=== PATIENT | female | born 1945 | race Caucasian/White ===

== ENCOUNTER 2020-07-28 20:29 | Observation (INO) | payer MEDICARE, OTHER ==
[2020-07-28 21:25] LABS: Absolute Neutrophil Ct (ANC) 6.33 (1.4-6.9); BASOPHIL % 0.1 % (0.0-0.4); Basophil (Absolute #) 0.01 (0-0.4); Eosinophil % 1.4 % (0.00-5.0); Eosinophil (Absolute #) 0.13 (0-0.5); Hematocrit 39.4 % (35-47); Hemoglobin 12.6 gm/dl (12.0-16.0); Lymphocyte (Absolute #) 1.75 (1.0-4.6); Lymphocytes % 19.3 % (24.0-44.0); Mean Cell Volume 93.4 fl (78-100); Mean Corpuscular Hemoglobin 29.9 pg (26-32); Monocyte (Absolute #) 0.86 (0.0-1.3); Monocytes % 9.5 % (0.0-12.0); Neutrophil % 69.7 % (36.0-66.0); Platelet Count 214 K/mm3 (150-450); Red Blood Count 4.22 M/mm3 (4.1-5.4); White Blood Count 9.1 K/mm3 (4.0-10.5)
[2020-07-28 21:31] LABS: Appearance CLOUDY (CLEAR); Bacteria PACKED /HPF (NEGATIVE); Bilirubin NEGATIVE (NEGATIVE); Blood SMALL Ery/ul (0-5); Epithelial Cells RARE /HPF (FEW); Glucose NEGATIVE (NEGATIVE); Ketones TRACE (NEGATIVE); Leukocyte Esterase LARGE (NEGATIVE); Mucus SLIGHT /HPF (NEGATIVE); Nitrite NEGATIVE (NEGATIVE); Non-Squamous Epithelial Cells RARE /HPF (FEW); Protein,Urine Dip 30 (Negative); RBC 0-2 /HPF (0-2); Specific Gravity 1.023 (1.005-1.025); Urobilinogen 2 mg/dL (0-1); WBC >100 /HPF (0-5)
[2020-07-28 21:38] LABS: ALBUMIN 4.5 g/dL (3.5-5.0); ANION GAP 10.5 MEQ/L (5-15); BILIRUBIN,TOTAL 0.4 mg/dL (0.2-1.3); Calcium 10.3 mg/dL (8.4-10.2); Creatinine 1 1.48 mg/dL (0.52-1.04); EST GLOMERULAR FILTRATION RATE 36.4 ML/MIN; Potassium 4.3 mmol/L (3.5-5.1); Total Protein 7.7 g/dL (6.3-8.2)
--- NOTE | 2020-07-28 22:23 | ERPHSYRPT ---
- History of Present Illness Historian: patient Exam Limitations: no limitations Patient Subjective Stated Complaint: "I think I have a bowel blockage." Triage Nursing Assessment: Patient presented with reported concern for a bowel blockage. Pt reported last bowel movement being 11 days ago with feeling of fullness in her rectum. Denied pain or discomfort. Denied nausea or vomiting. Denied hisotory of constipation or bowel blockage. Denied excessive belching. Pupils 3mm brisk direct and consensual reaction to light. Oral mucosa pink and moist without ulcerations or lesions. Neck supple with trachea midline. No noted JVD or lymphadenopathy. Symmetrical chest expansion. Heart tones S1 S2 with regular rate and rhythm without extra sounds. Lungs clear to auscultation with adequate airflow. Abdomen obese non-distended without hernias. Bowel sounds hypoactive in all quadrants. No palpable hepatosplenomegaly or palpable masses. Peripheral pulses +2 bilateral. No noted dependent edema. Gait steady without assistive devices. Physician History: 75 yo wf w constipation x 11 days. Pt denies abdominal pain/melena/hematochezia/fever/N/V/dysuria but has had some frequency. She has a h/o constipation and has tried MOM/fleets enemas. Timing/Duration: other (14 days) Quality: other (Mild rectal pain) Abdominal Pain Onset Location: other (Mild rectal pain) Severity of Pain-Max: mild Severity of Pain-Current: mild Modifying Factors: Improves With: defecating. Worsens With: analgesics, ant acids, breathing, coughing, eating, exercise, lying down, movement, palpation, rest, urinating, vomiting, position, walking Associated Symptoms: denies symptoms Previous symptoms: same symptoms as today Allergies/Adverse Reactions: No Known Drug Allergies Allergy (Unverified 07/28/20 20:52) Home Medications: Fluoxetine HCl 1 tab PO DAILY 07/28/20 [History] Levothyroxine Sodium 1 tab PO DAILY 07/28/20 [History] Losartan Potassium 1 tab PO DAILY 07/28/20 [History] Lovastatin 1 tab PO DAILY 07/28/20 [History] Metformin HCl 500 mg [Glucophage 500 MG] 1 tab PO BID 07/28/20 [History] Trazodone HCl 50 mg [Desyrel 50 mg] 1 tab PO HS 07/28/20 [History] Hx Tetanus, Diphtheria Vaccination/Date Given: No Hx Influenza Vaccination/Date Given: Yes Hx Pneumococcal Vaccination/Date Given: No Travel Risk - International Travel Have you traveled outside of the country in past 3 weeks: No - Coronavirus Screening Are you exhibiting any of the following symptoms?: No Close contact with a COVID-19 positive Pt in past 14-21 Days: No - Review of Systems Constitutional: No Symptoms Eyes: No Symptoms Ears, Nose, & Throat: No Symptoms Respiratory: No Symptoms Cardiac: No Symptoms Abdominal/Gastrointestinal: No Symptoms, Constipation Genitourinary Symptoms: No Symptoms, Frequency Musculoskeletal: No Symptoms Skin: No Symptoms Neurological: No Symptoms Psychological: No Symptoms Endocrine: No Symptoms Hematologic/Lymphatic: No Symptoms Immunological/Allergic: No Symptoms - Past Medical History Pertinent Past Medical History: Yes Neurological History: No Pertinent History ENT History: No Pertinent History Cardiac History: High Cholesterol, Myocardial Infarction ([place]) Respiratory History: No Pertinent History Endocrine Medical History: Diabetes Type II, Hypothyroidism Musculoskeletal History: Arthritis GI Medical History: No Pertinent History History: No Pertinent History Psycho-Social History: Depression Female Reproductive Disorders: No Pertinent History - Past Surgical History Past Surgical History: Yes Cardiac: CABG Gastrointestinal: No Pertinent History Musculoskeletal: Joint Replacement Female Surgical History: Hysterectomy Other Surgical History: Right shoulder replacement and right knee replacement - Social History Smoking Status: Never smoker Exposure to second hand smoke: No Drug Use: none Patient Lives Alone: No Significant Family History: no pertinent family hx - Female History Hx Now: No - Nursing Vital Signs Nursing Vital Signs: Initial Vital Signs Temperature 98.6 F 07/28/20 20:30 Pulse Rate 86 07/28/20 20:30 Respiratory Rate 16 07/28/20 20:30 Blood Pressure 130/69 07/28/20 20:30 O2 Sat by Pulse Oximetry 99 07/28/20 20:30 Pain Scale Pain Intensity 4 - Physical Exam General Appearance: no apparent distress Eye Exam: PERRL/EOMI, eyes nml inspection Ears, Nose, Throat Exam: normal ENT inspection, TMs normal, pharynx normal, moist mucous membranes Neck Exam: normal inspection, non-tender, supple, full range of motion, No meningismus, No mass, No Brudzinski, No Kernig's Respiratory Exam: normal breath sounds, lungs clear, airway intact, No respiratory distress Cardiovascular Exam: regular rate/rhythm, normal heart sounds, normal peripheral pulses, No murmur Gastrointestinal/Abdomen Exam: soft (decreased BS/NTTP) Back Exam: normal inspection, normal range of motion, No CVA tenderness Extremity Exam: normal inspection, normal range of motion Neurologic Exam: alert, oriented x 3, cooperative, magneto repairer II-XII nml as tested, normal mood/affect, sensation nml, No motor deficits, No sensory deficit Skin Exam: normal color, warm, dry Lymphatic Exam: No adenopathy SpO2 Interpretation: normal SpO2: 96 O2 Delivery: Room Air - Course Nursing assessment & vital signs reviewed: Yes - CT Exams Abdomen/Pelvis CT Interpretation: Discussed w/radiologist (Distal rectal thickening w wall stranding) Ordered Tests: Active Orders 24 hr Category Date Time Status IV Insertion STAT Care 07/28/20 21:30 Completed NPO except Meds Diet 07/28/20 23:36 Active ABDOMEN AND PELVIS W/0 CONTRAS [CT] Stat Exams 07/28/20 21:00 Taken BLOOD CULTURE Stat Lab 07/28/20 21:24 Received CBC W DIFF AM.LAB Lab 07/29/20 04:00 Ordered CBC W DIFF Stat Lab 07/28/20 21:20 Completed CMP AM.LAB Lab 07/29/20 04:00 Ordered CMP Stat Lab 07/28/20 21:20 Completed CULTURE,URINE Stat Lab 07/28/20 21:15 Received TROPONIN Q3H Lab 07/28/20 21:20 Completed UA W/RFX UR CULTURE Stat Lab 07/28/20 21:15 Completed Medication Summary Generic Name Dose Route Start Last Admin Trade Name Freq PRN Reason Stop Dose Admin Sodium Chloride 1,000 mls @ 100 mls/hr 07/28/20 23:45 07/29/20 02:53 Sodium Chloride 0.9% 1000 Ml IV 08/27/20 23:44 100 mls/hr .Q10H SERGE Administration Ceftriaxone Sodium/Dextrose 1 g in 50 mls @ 100 mls/hr 07/29/20 10:00 07/29/20 01:35 Rocephin 1 Gm-D5w 50 Ml Bag IV 08/28/20 09:59 100 mls/hr Q24H10 SERGE Administration Ibuprofen 400 mg 07/29/20 03:08 07/29/20 03:11 Motrin 400 Mg PO 08/28/20 03:07 400 mg Q6H PRN Administration PAIN Lactulose 10 g 07/28/20 23:45 07/29/20 02:47 Enulose 10 Gm/15 Ml PO 07/29/20 17:46 10 g Q6H SERGE Administration Ondansetron HCl 4 mg 07/28/20 23:35 Zofran 4 Mg/2 Ml Vial IV 08/27/20 23:34 Q6H PRN PRN NAUSEA/VOMITING Pantoprazole Sodium 40 mg 07/29/20 10:00 Protonix 40 Mg Iv IV 08/28/20 09:59 Q24H10 SERGE Discontinued Medications Generic Name Dose Route Start Last Admin Trade Name Freq PRN Reason Stop Dose Admin Ibuprofen Confirm 07/29/20 02:42 Motrin 400 Mg Administered 07/29/20 02:43 Dose 400 mg .ROUTE .STK-MED ONE Lactulose Confirm 07/29/20 02:43 Lactulose 20 Gm/30ml Ud Cup Administered 07/29/20 02:44 Dose 20 gm .ROUTE .STK-MED ONE Lab/Rad Data: Laboratory Result Diagrams 07/28/20 21:20 07/28/20 21:20 Laboratory Results 07/28/20 07/28/20 07/28/20 Range/Units 21:20 21:20 21:20 WBC 9.1 (4.0-10.5) K/mm3 RBC 4.22 (4.1-5.4) M/mm3 Hgb 12.6 (12.0-16.0) gm/dl Hct 39.4 (35-47) % MCV 93.4 (78-100) fl MCH 29.9 (26-32) pg MCHC 32.0 (32-36) g/dl RDW 15.0 H (11.5-14.0) % Plt Count 214 (150-450) K/mm3 MPV 11.0 (7.5-11.0) fl Gran % 69.7 H (36.0-66.0) % Eos # (Auto) 0.13 (0-0.5) Absolute Lymphs (auto) 1.75 (1.0-4.6) Absolute Monos (auto) 0.86 (0.0-1.3) Lymphocytes % 19.3 L (24.0-44.0) % Monocytes % 9.5 (0.0-12.0) % Eosinophils % 1.4 (0.00-5.0) % Basophils % 0.1 (0.0-0.4) % Absolute Granulocytes 6.33 (1.4-6.9) Basophils # 0.01 (0-0.4) Sodium 140 (137-145) mmol/L Potassium 4.3 (3.5-5.1) mmol/L Chloride 105 (98-107) mmol/L Carbon Dioxide 28 (22-30) mmol/L Anion Gap 10.5 (5-15) MEQ/L BUN 25 H (7-17) mg/dL Creatinine 1.48 H (0.52-1.04) mg/dL Estimated GFR 36.4 ML/MIN Glucose 143 H (74-106) mg/dL Calcium 10.3 H (8.4-10.2) mg/dL Total Bilirubin 0.40 (0.2-1.3) mg/dL AST 35 (14-36) U/L ALT 15 (0-35) U/L Alkaline Phosphatase 67 (38-126) U/L Troponin I < 0.012 (0.000-0.034) ng/mL Serum Total Protein 7.7 (6.3-8.2) g/dL Albumin 4.5 (3.5-5.0) g/dL Urine Color (YELLOW) Urine Appearance (CLEAR) Urine pH (5-6) Ur Specific [place] (1.005-1.025) Urine Protein (Negative) Urine Ketones (NEGATIVE) Urine Blood (0-5) Damaso/ul Urine Nitrite (NEGATIVE) Urine Bilirubin (NEGATIVE) Urine Urobilinogen (0-1) mg/dL Ur Leukocyte Esterase (NEGATIVE) Urine WBC (Auto) (0-5) /HPF Urine RBC (Auto) (0-2) /HPF U Epithel Cells (Auto) (FEW) /HPF Urine Bacteria (Auto) (NEGATIVE) /HPF U Non-Squamous Epi Cells (FEW) /HPF Urine Mucus (Auto) (NEGATIVE) /HPF Urine Culture Reflexed (NO) Urine Glucose (NEGATIVE) mg/dL 07/28/20 Range/Units 21:15 WBC (4.0-10.5) K/mm3 RBC (4.1-5.4) M/mm3 Hgb (12.0-16.0) gm/dl Hct (35-47) % MCV (78-100) fl MCH (26-32) pg MCHC (32-36) g/dl RDW (11.5-14.0) % Plt Count (150-450) K/mm3 MPV (7.5-11.0) fl Gran % (36.0-66.0) % Eos # (Auto) (0-0.5) Absolute Lymphs (auto) (1.0-4.6) Absolute Monos (auto) (0.0-1.3) Lymphocytes % (24.0-44.0) % Monocytes % (0.0-12.0) % Eosinophils % (0.00-5.0) % Basophils % (0.0-0.4) % Absolute Granulocytes (1.4-6.9) Basophils # (0-0.4) Sodium (137-145) mmol/L Potassium (3.5-5.1) mmol/L Chloride (98-107) mmol/L Carbon Dioxide (22-30) mmol/L Anion Gap (5-15) MEQ/L BUN (7-17) mg/dL Creatinine (0.52-1.04) mg/dL Estimated GFR ML/MIN Glucose (74-106) mg/dL Calcium (8.4-10.2) mg/dL Total Bilirubin (0.2-1.3) mg/dL AST (14-36) U/L ALT (0-35) U/L Alkaline Phosphatase (38-126) U/L Troponin I (0.000-0.034) ng/mL Serum Total Protein (6.3-8.2) g/dL Albumin (3.5-5.0) g/dL Urine Color DARK YELLOW (YELLOW) Urine Appearance CLOUDY (CLEAR) Urine pH 6.0 (5-6) Ur Specific [place] 1.023 (1.005-1.025) Urine Protein 30 (Negative) Urine Ketones TRACE (NEGATIVE) Urine Blood SMALL (0-5) Damaso/ul Urine Nitrite NEGATIVE (NEGATIVE) Urine Bilirubin NEGATIVE (NEGATIVE) Urine Urobilinogen 2 (0-1) mg/dL Ur Leukocyte Esterase LARGE (NEGATIVE) Urine WBC (Auto) >100 (0-5) /HPF Urine RBC (Auto) 0-2 (0-2) /HPF U Epithel Cells (Auto) RARE (FEW) /HPF Urine Bacteria (Auto) PACKED (NEGATIVE) /HPF U Non-Squamous Epi Cells RARE (FEW) /HPF Urine Mucus (Auto) SLIGHT (NEGATIVE) /HPF Urine Culture Reflexed YES (NO) Urine Glucose NEGATIVE (NEGATIVE) mg/dL - Progress Progress: unchanged Discussed with : Pattie Will see patient in: hospital (observation) - Departure Departure Disposition: Observation Clinical Impression: UTI (urinary tract infection), Proctitis Condition: Stable Critical Care Time: No
[2020-07-28] MEDS ORDERED: Zofran 4 MG/2 ML VIAL IV PRN (23:35)
[2020-07-28] MEDS ORDERED: Enulose 10 GM/15 ML PO SCH (23:45)
[2020-07-28] MEDS ORDERED: Sodium Chloride 0.9% 1000 ML 1,000 ML IV SCH (23:45)
[2020-07-29] MEDS ORDERED: MOTRIN 400 MG ONE (02:42)
[2020-07-29] MEDS ORDERED: LACTULOSE 20 GM/30ML UD CUP ONE (02:43)
[2020-07-29] MEDS ORDERED: MOTRIN 400 MG PO PRN ×2 (03:08→06:15)
[2020-07-29 05:56] LABS: Absolute Neutrophil Ct (ANC) 3.87 (1.4-6.9); BASOPHIL % 0.3 % (0.0-0.4); Basophil (Absolute #) 0.02 (0-0.4); Eosinophil % 3.4 % (0.00-5.0); Eosinophil (Absolute #) 0.23 (0-0.5); Hematocrit 36.4 % (35-47); Hemoglobin 11.5 gm/dl (12.0-16.0); Lymphocyte (Absolute #) 2.03 (1.0-4.6); Lymphocytes % 29.8 % (24.0-44.0); Mean Cell Volume 94.1 fl (78-100); Mean Corpuscular Hemoglobin 29.7 pg (26-32); Mean Corpuscular Hgb Concent. 31.6 g/dl (32-36); Mean Platelet Volume 11.8 fl (7.5-11.0); Monocyte (Absolute #) 0.66 (0.0-1.3); Monocytes % 9.7 % (0.0-12.0); Neutrophil % 56.8 % (36.0-66.0); Platelet Count 186 K/mm3 (150-450); Red Blood Count 3.87 M/mm3 (4.1-5.4); Red Cell Distribution Width 14.9 % (11.5-14.0); White Blood Count 6.8 K/mm3 (4.0-10.5)
[2020-07-29 06:27] LABS: ALBUMIN 3.6 g/dL (3.5-5.0); ANION GAP 9.6 MEQ/L (5-15); BILIRUBIN,TOTAL 0.4 mg/dL (0.2-1.3); Calcium 9.4 mg/dL (8.4-10.2); Creatinine 1 1.08 mg/dL (0.52-1.04); EST GLOMERULAR FILTRATION RATE 52.4 ML/MIN; Potassium 3.7 mmol/L (3.5-5.1); Total Protein 6.4 g/dL (6.3-8.2)
[2020-07-29] MEDS: LACTULOSE 20 GM/30ML UD CUP PO SCH ×2 (06:30→13:09)
--- NOTE | 2020-07-29 09:02 | XRAY ---
Indication: Rectal pain/pressure. Constipation. Multiple contiguous axial images obtained through the abdomen and pelvis without contrast as ordered. Comparison: None Lung bases demonstrates left lower lobe subsegmental atelectasis/scarring. No infiltrate or effusion. Heart is not enlarged with scattered coronary calcifications. Small hiatal hernia. Noncontrasted stomach and bowel loops appear nonobstructed. Appendectomy and hysterectomy reported. There is little colonic fecal debris predominantly in the right hemicolon and rectum. Mild scattered sigmoid diverticulosis. Distal rectum/anus demonstrates circumferential wall thickening with minimal stranding, possible proctitis. Malignancy not completely excluded. No free fluid/air. Urinary bladder demonstrates intraluminal air bubble either iatrogenic from recent catheterization versus gas-forming bacterial infection. Scattered hepatic/splenic calcified granulomas. Remaining liver, pancreas, spleen, adrenal glands, kidneys, ureters, and bladder appear unremarkable for noncontrast exam. Mild scattered aortoiliac calcifications without AAA. Osseous structures intact with osteopenia, mild degenerative spondylosis throughout the spine greatest at the lumbosacral junction, and 3-4 mm L4 spondylolisthesis. Impression: 1. Distal rectum/anus wall thickening with stranding, possibly proctitis. Malignancy not completely excluded. 2. Sigmoid diverticulosis without diverticulitis and small hiatal hernia. 3. Urinary bladder intraluminal air bubble either iatrogenic versus gas-forming bacterial infection. 4. Scattered arteriosclerotic disease, chronic bony findings, and old granulomatous disease.
--- NOTE | 2020-07-29 09:38 | HP ---
CHIEF COMPLAINT: Constipation. HISTORY OF PRESENT ILLNESS: The patient is a 75 year old white female who reports she normally has bowel movements only once a week and it has been eleven days since her last bowel movement. She became concerned and started taking medication by mouth to try to help improve her bowel movements including then later suppositories and then Fleet's enemas with minimal results. She reports that she has had 50 pound weight loss over the past year that has been unexplained. She has denied any blood in the stool. She had a colonoscopy but it has been 20 years ago which was normal. PAST MEDICAL HISTORY: The patient reports that she has issues with diabetes mellitus, hypothyroid. PAST SURGICAL HISTORY: She had coronary artery bypass surgery in the past, joint replacements, hysterectomy. HOME MEDICATIONS: Currently includes fluoxetine at 20 mg a day, levothyroxine 100 mcg daily, losartan 50 mg a day, lovastatin 40 mg a day, Glucophage 500 mg b.i.d., Ditropan 5 mg b.i.d. and trazodone 50 mg at night. ALLERGIES: NKDA. PHYSICAL EXAMINATION: The patient's vital signs on admission to the emergency room showed temperature 98.6F, pulse 86, respiratory rate 16 and blood pressure 130/69. O2 saturation 99%.HEENT: Normocephalic, atraumatic. Pupils equal round reactive to light. Extraocular movements intact. Oropharynx is pink and moist. NECK: Supple without lymphadenopathy, thyromegaly or JVD. CHEST: Clear to auscultation. HEART: Regular rate and rhythm. ABDOMEN: Soft. No palpable masses. EXTREMITIES: Without cyanosis, clubbing or edema. NEUROLOGIC: The patient is alert and oriented x3. LAB DATA AND TESTS: Sugar 122, BUN 22, creatinine 1.08. Electrolytes were normal. Liver enzymes were normal. White count was 6,800, hemoglobin 11.5, PLT count 186,000. She had a troponin less than 0.012. UA did show what appeared to be urinary tract infection with greater than 100 white blood cells per high power field although the nitrite was negative, specific gravity was 1.023. She had initial labs prior to hydration show BUN 25, creatinine 1.48. She had CT scan showing distal rectum/anus circumferential wall thickening with stranding; rule out proctitis versus malignancy, sigmoid diverticulosis. There was an air bubble in urinary bladder iatrogenic versus gas-forming infection. ASSESSMENT: A patient with constipation. She has been admitted for soap suds enemas until clear. It appears she has urinary tract infection which we will treat with IV Rocephin initially. Cultures will be obtained. If we clear the patient's constipation she will be allowed to go home. We discussed doing an outpatient colonoscopy with her and suggested that she start taking daily MiraLAX to keep her bowels moving normally.
[2020-07-29] MEDS ORDERED: SYNTHROID 100 MCG PO SCH (10:00)
[2020-07-29] MEDS ORDERED: ROCEPHIN 1 Gm-D5w 50 ml Bag** 1 G/50 ML IVPB IV SCH ×2 (10:00→22:00)
[2020-07-29] MEDS ORDERED: NON-FORMULARY ITEM (Lovastatin [Lovastatin] 40 MG) PO SCH (10:00)
[2020-07-29] MEDS ORDERED: Cozaar 50 MG PO SCH (10:00)
[2020-07-29] MEDS ORDERED: Ditropan 5 MG PO SCH (10:00)
[2020-07-29] MEDS ORDERED: FLUZONE HIGH-DOSE QUAD 2020-21 IM ONE (10:00)
[2020-07-29] MEDS ORDERED: ZOCOR 20MG PO SCH (10:00)
[2020-07-29] MEDS ORDERED: PROTONIX 40 MG IV IV SCH (10:00)
[2020-07-29] MEDS ORDERED: Prozac 20 MG PO SCH (10:00)
[2020-07-29] MEDS ORDERED: Glucophage 500 MG PO SCH (10:00)
[2020-07-29 16:25] VITALS: BP 164/70; PULSE 53; O2SAT 100
[2020-07-29] MEDS ORDERED: DESYREL 50 MG PO SCH (22:00)
== END 2020-07-29 17:18 | disposition home or self-care (01) ==
LOC: ED 20:29 → MED SURG 07-29 00:22
PROVIDERS: ADMIT Family Medicine; ATTEND Family Medicine
DX: K59.00 Constipation, unspecified (principal); N39.0 Urinary tract infection, site not specified; Z23 Encounter for immunization; Z79.899 Other long term (current) drug therapy; E11.9 Type 2 diabetes mellitus without complications; E03.9 Hypothyroidism, unspecified; E78.00 Pure hypercholesterolemia, unspecified
CPT/HCPCS: 36000; 36415; 74176; 80053; 81001; 82962; 84484; 85025; 87040; 87077; 87086; 87186; 99283; G0008; 90662; G0378; J0696; A9270-GY

== ENCOUNTER 2020-08-19 05:57 | Day surgery (SDC) | payer MEDICARE, OTHER ==
[2020-08-19] MEDS ORDERED: Lactated Ringers 1,000 ML IV SCH (07:00)
[2020-08-19] MEDS ORDERED: DIPRIVAN 200 MG/20 ML IV ONE ×2 (08:03→08:33)
--- NOTE | 2020-08-19 09:28 | OP ---
SURGERY DATE/TIME: 08/19/2020 0806 PREOPERATIVE DIAGNOSIS: Chronic constipation and abnormal CT scan with thickening of the bowel wall. POSTOPERATIVE DIAGNOSIS: Moderate to severe sigmoid diverticulosis and small polyps in the ascending and transverse colon. PROCEDURE: Colonoscopy with cold forceps biopsy. SURGEON: Dr. Estrada. ANESTHESIA: MAC. Medications given by anesthesia department. HISTORY: The patient is a 75 year old white female who presented to the hospital with chronic constipation issues. She was admitted to the hospital to be cleaned out but also had a CT scan at that time showing some thickening of the bowel wall concerning for colitis or malignancy. The patient previously had colonoscopy but it has been 25 years. The patient is felt to need to have endoscopic evaluation. She was appraised of the risks of the procedure including the risk of perforation, phlebitis, untoward reaction to medication, bleeding and missed lesions. The patient verbalized her understanding and desired to have the procedure performed. DESCRIPTION OF PROCEDURE: The patient was given the medications by the anesthesia department. She had continuous pulse oximetry, ECG monitoring, intermittent blood pressure monitoring and tidal CO2 monitoring during the examination. She was placed in the left lateral decubitus position. A digital rectal examination was performed and revealed normal anal sphincter tone and no masses. The flexible Olympus pediatric colonoscope was used to intubate the rectum. A view of the colon was developed sequentially to the cecum. Upon insertion and withdrawal was noted moderate to severe sigmoid diverticulosis and we also seen two small polyps noted in the ascending colon and one small on in the transverse colon measuring approximately 0.5 to 0.7 cm in size. They were destroyed using cold biopsy technique to destroy the lesion and to send to pathology. The scope was removed from the patient who tolerated the procedure well and was sent back to OP recovery in good condition. The prep was noted to be fair to good with large amounts of liquid stool present but we were able to suction most of it clear. The patient is also noted to have a long tortuous colon.
[2020-08-19 09:35] VITALS: BP 141/60; PULSE 90; O2SAT 97
== END 2020-08-19 09:32 | disposition home or self-care (01) ==
LOC: SDC 05:57
PROVIDERS: ATTEND Family Medicine
DX: K57.30 Diverticulosis of large intestine without perforation or abscess without bleeding (principal); D12.2 Benign neoplasm of ascending colon; D12.3 Benign neoplasm of transverse colon; K59.00 Constipation, unspecified; R93.5 Abnormal findings on diagnostic imaging of other abdominal regions, including retroperitoneum; E11.9 Type 2 diabetes mellitus without complications; I10 Essential (primary) hypertension; E03.9 Hypothyroidism, unspecified; Z79.899 Other long term (current) drug therapy
CPT/HCPCS: 82947; 88305; 93005; 94250; J2704

== ENCOUNTER 2022-10-14 14:51 | Observation (INO) | payer MEDICARE, OTHER ==
[2022-10-14 15:20] LABS: Absolute Neutrophil Ct (ANC) 3.95 x10^3/uL (1.4-6.9); Basophil (Absolute #) 0.05 x10^3/uL (0-0.4); Eosinophil % 3.7 % (0.00-5.0); Eosinophil (Absolute #) 0.24 x10^3/uL (0-0.5); Hematocrit 41.1 % (35-47); Lymphocyte (Absolute #) 1.74 x10^3/uL (1.0-4.6); Lymphocytes % 26.9 % (24.0-44.0); Mean Cell Volume 94.3 fL (78-100); Mean Corpuscular Hemoglobin 29.8 pg (26-32); Mean Corpuscular Hgb Concent. 31.6 g/dL (32-36); Mean Platelet Volume 10.9 fL (7.5-11.0); Monocyte (Absolute #) 0.46 x10^3/uL (0.0-1.3); Monocytes % 7.1 % (0.0-12.0); Platelet Count 220 x10^3/uL (150-450); Red Blood Count 4.36 x10^6/uL (4.1-5.4); Red Cell Distribution Width 13.5 % (11.5-14.0); White Blood Count 6.5 x10^3/uL (4.0-10.5)
[2022-10-14 15:38] LABS: INR 1.07 (0.8-3.0); PROTIME 11.3 SECONDS (9.4-12.5); PTT 24.2 SECONDS (25.1-36.5)
[2022-10-14 15:45] LABS: ALKALINE PHOSPHATASE 85 U/L (38-126); ANION GAP 9.3 MEQ/L (5-15); BLOOD UREA NITROGEN 29 mg/dL (7-17); CHLORIDE 108 mmol/L (98-107); Calcium 9.2 mg/dL (8.4-10.2); Carbon Dioxide 24 mmol/L (22-30); Creatinine 1 0.95 mg/dL (0.52-1.04); EST GLOMERULAR FILTRATION RATE > 60.0 ML/MIN; Glucose 178 mg/dL (74-106); NT PRO BNP 5570 pg/mL (0-1800); Potassium 4.6 mmol/L (3.5-5.1); SGOT/AST 94 U/L (14-36); SGPT/ALT 85 U/L (0-35); SODIUM 136 mmol/L (137-145)
--- NOTE | 2022-10-14 15:54 | ERPHSYRPT ---
- History of Present Illness Source: patient Exam Limitations: no limitations Patient Subjective Stated Complaint: SOB Triage Nursing Assessment: Patient ambulated back to ED and transferred self to bed. Patient A+O X3. Patient's skin pink, warm and dry. Patient complains of SOB for the past two days. Patient complains of increased weakness and fatigue with productive cough with thin white mucus. Lungs noted to be clear a/p juvenal. Patient denies pain or discomfort. Physician History: 77 yo wf w dyspnea x 6 days which is worse upon exertion. Pt has had a cough which is nonproductive but denies fever/coryza/N/V/diarrhea/melena/hematochezia. She denies chest pain. Orthopnea and PND are also denied. Timing/Duration: other (5-6 days) Possible Cause: no prior episodes Modifying Factors: Improves With: activity, coughing Associated Symptoms: cough Allergies/Adverse Reactions: No Known Drug Allergies Allergy (Verified 10/14/22 14:54) Home Medications: Fluoxetine HCl 20 mg PO DAILY 07/28/20 [History] Levothyroxine Sodium 100 mcg PO DAILY 07/28/20 [History] Losartan Potassium 50 mg PO DAILY 07/28/20 [History] Lovastatin 40 mg PO HS 07/28/20 [History] Metformin HCl 500 mg [Glucophage 500 MG] 500 mg PO BID 07/28/20 [History] Trazodone HCl 50 mg [Desyrel 50 mg] 50 mg PO HS 07/28/20 [History] Oxybutynin Chloride 5 mg [Ditropan 5 MG] 5 mg PO BID 07/29/20 [History] Cetirizine HCl [Zyrtec] 10 mg PO HS 08/16/20 [History] Hx Tetanus, Diphtheria Vaccination/Date Given: No Hx Influenza Vaccination/Date Given: Yes Hx Pneumococcal Vaccination/Date Given: No Immunizations Up to Date: Yes Travel Risk - International Travel Have you traveled outside of the country in past 3 weeks: No - Coronavirus Screening Symptoms: Cough: New Onset, Shortness of Breath, Headaches/Body Aches/Fatigue Close contact with a COVID-19 positive Pt in past 14-21 Days: No - Vaccine Status Have you recieved a Covid-19 vaccination: Yes Train Master: Moderna - Vaccination Dates Date of 2cond Vaccination (if applicable): na - Review of Systems Constitutional: No Symptoms, Malaise Eyes: No Symptoms Ears, Nose, & Throat: No Symptoms Respiratory: No Symptoms, Cough, Dyspnea, Dyspnea on Exertion (MONTEZ) Cardiac: No Symptoms Abdominal/Gastrointestinal: No Symptoms Genitourinary Symptoms: No Symptoms Musculoskeletal: No Symptoms Skin: No Symptoms Neurological: No Symptoms Psychological: No Symptoms Endocrine: No Symptoms Hematologic/Lymphatic: No Symptoms Immunological/Allergic: No Symptoms - Past Medical History Pertinent Past Medical History: Yes Neurological History: No Pertinent History ENT History: No Pertinent History Cardiac History: High Cholesterol, Myocardial Infarction ([place]) Respiratory History: No Pertinent History Endocrine Medical History: Diabetes Type II, Hypothyroidism Musculoskeletal History: Arthritis GI Medical History: No Pertinent History History: No Pertinent History Psycho-Social History: Anxiety, Depression Female Reproductive Disorders: No Pertinent History - Past Surgical History Past Surgical History: Yes Neuro Surgical History: No Pertinent History Cardiac: CABG Respiratory: No Pertinent History Gastrointestinal: Appendectomy Genitourinary: No Pertinent History Musculoskeletal: Joint Replacement Female Surgical History: Hysterectomy, Tubal Ligation Other Surgical History: Right shoulder replacement and right knee replacement, ooperectomy (one ovary remains), Right rotator cuff repair, - Social History Smoking Status: Never smoker Exposure to second hand smoke: No Drug Use: none Patient Lives Alone: No Significant Family History: no pertinent family hx - Nursing Vital Signs Nursing Vital Signs: Initial Vital Signs Temperature 96.3 F 10/14/22 14:54 Pulse Rate 87 10/14/22 14:54 Respiratory Rate 20 10/14/22 14:54 Blood Pressure 129/76 10/14/22 14:54 O2 Sat by Pulse Oximetry 99 10/14/22 14:54 Pain Scale Pain Intensity 0 WNL - Physical Exam General Appearance: no apparent distress Eye Exam: PERRL/EOMI, eyes nml inspection Ears, Nose, Throat Exam: hearing grossly normal, normal ENT inspection, normal pharynx Neck Exam: normal inspection, non-tender, supple, full range of motion, No Brudzinski, No Kernig's, No meningismus, No carotid bruit Respiratory Exam: crackles/rales (Rales at bases L>R) Cardiovascular/Chest Exam: other (Ir-Ir w 2/6 TINY) Abdominal/Gastrointestinal Exam: soft, normal bowel sounds, No tenderness Extremity Exam: non-tender, normal range of motion, normal inspection, normal capillary refill, no calf tenderness, no pedal edema Peripheral Pulses Exam: carotid (R): 2+, carotid (L): 2+ Neurologic Exam: alert, oriented x 3, cooperative, animal care supervisor II-XII nml as tested, normal mood/affect, nml cerebellar function, nml station & gait, sensation nml, No motor deficits, No sensory deficit Skin Exam: normal color, warm, dry Lymphatic Exam: No adenopathy SpO2 Interpretation: normal SpO2: 99 O2 Delivery: Room Air - Course Nursing assessment & vital signs reviewed: Yes EKG Interpreted by Me: RATE (Afib/Rate 97/PVC's/IVCD/Poor Rwave progression) - Radiology Exams Chest X-ray Interpretation: Interpreted by me (Post-surgical chest/nothing acute) - CT Exams Chest CT Interpretation: Tele-radiologist Report (No PE/CAD/esophagitis/adenopathy/B pleural effusions/Aortic and mitral valve disease) Ordered Tests: Active Orders 24 hr Category Date Time Status EKG-ER Only STAT Care 10/14/22 15:00 Completed Consistent Carbohydrate Diet 2000 Calorie Diet 10/15/22 Breakfast Active CHEST 1 VIEW (PORTABLE) Stat Exams 10/14/22 16:59 Completed CHEST WITH CONTRAST [CT] Stat Exams 10/14/22 18:28 Taken ECHO W/2D AND DOPPLER [US] Routine Exams 10/15/22 20:44 Stop Req BMP AM.LAB Lab 10/15/22 04:00 Ordered CBC AM.LAB Lab 10/15/22 04:00 Ordered CBC W DIFF Stat Lab 10/14/22 15:21 Completed CMP Stat Lab 10/14/22 15:21 Completed D-DIMER QUANTITATIVE Stat Lab 10/14/22 14:59 Completed Lactic Acid Stat Lab 10/14/22 14:59 Completed NT PRO BNP AM.LAB Lab 10/15/22 04:00 Ordered NT PRO BNP Stat Lab 10/14/22 15:21 Completed PROTIME WITH INR Stat Lab 10/14/22 15:21 Completed PTT Stat Lab 10/14/22 15:21 Completed TROPONIN Q4H Lab 10/14/22 15:21 Completed TROPONIN Q4H Lab 10/14/22 17:43 Completed TROPONIN Q4H Lab 10/14/22 22:53 Received UA W/RFX UR CULTURE Stat Lab 10/14/22 20:43 Completed Transfer Order Routine Transfer 10/14/22 Completed Medication Summary Generic Name Dose Route Start Last Admin Trade Name Almita PRN Reason Stop Dose Admin Enoxaparin Sodium 80 mg 10/14/22 21:00 10/14/22 21:44 Enoxaparin Sodium 80 Mg/0.8 Ml Syringe 1 mg/kg (80 mg) 11/13/22 20:59 80 mg SQ Administration Q12H SERGE Furosemide 40 mg 10/15/22 10:00 Furosemide 40 Mg/4 Ml Vial IV 11/14/22 09:59 BID DIURETIC SERGE Loratadine 10 mg 10/14/22 23:00 10/14/22 22:40 Loratadine 10 Mg Tablet PO 11/13/22 22:59 10 mg HS SERGE Administration Losartan Potassium 50 mg 10/15/22 10:00 Losartan Potassium 50 Mg Tablet PO 11/14/22 09:59 DAILY SERGE Metformin HCl 500 mg 10/14/22 23:00 10/14/22 22:37 Metformin Hcl 500 Mg Tablet PO 11/13/22 22:59 Not Given BIDWM SERGE Oxybutynin Chloride 5 mg 10/14/22 23:00 10/14/22 22:41 Oxybutynin Chloride 5 Mg Tablet PO 11/13/22 22:59 5 mg BID SERGE Administration Simvastatin 20 mg 10/14/22 23:00 10/14/22 22:41 Simvastatin 20 Mg Tablet PO 11/13/22 22:59 20 mg HS SERGE Administration Trazodone HCl 50 mg 10/14/22 23:00 10/14/22 22:41 Trazodone Hcl 50 Mg Tablet PO 11/13/22 22:59 50 mg HS SERGE Administration Discontinued Medications Generic Name Dose Route Start Last Admin Trade Name Almita PRN Reason Stop Dose Admin Aspirin 324 mg 10/14/22 16:42 10/14/22 16:58 Aspirin 81 Mg Tab.Chew PO 10/14/22 16:43 324 mg STAT ONE Administration Aspirin Confirm 10/14/22 16:58 Aspirin 81 Mg Tab.Chew Administered 10/14/22 16:59 Dose 324 mg .ROUTE .STK-MED ONE Diltiazem HCl Confirm 10/14/22 20:17 Diltiazem Hcl Iv 5 Mg/Ml Vial Administered 10/14/22 20:18 Dose 50 mg IV .STK-MED ONE Furosemide 40 mg 10/14/22 19:56 10/14/22 20:03 Furosemide 40 Mg/4 Ml Vial IV 10/14/22 19:57 40 mg STAT ONE Administration Furosemide Confirm 10/14/22 20:01 Furosemide 40 Mg/4 Ml Vial Administered 10/14/22 20:02 Dose 40 mg .ROUTE .STK-MED ONE Diltiazem HCl Confirm 10/14/22 20:17 Cardizem Drip 100 Mg/100 Ml D5w Administered 10/14/22 20:18 Dose 100 mls @ ud IV .STK-MED ONE Lab/Rad Data: Laboratory Result Diagrams 10/14/22 15:21 10/14/22 15:21 Laboratory Results 10/14/22 10/14/22 10/14/22 Range/Units 20:43 17:43 15:21 WBC (4.0-10.5) x10^3/uL RBC (4.1-5.4) x10^6/uL Hgb (12.0-16.0) g/dL Hct (35-47) % MCV (78-100) fL MCH (26-32) pg MCHC (32-36) g/dL RDW (11.5-14.0) % Plt Count (150-450) x10^3/uL MPV (7.5-11.0) fL Gran % (36.0-66.0) % Immature Gran % (Auto) (0.00-0.4) % Nucleat RBC Rel Count (0.00-0.1) % Eos # (Auto) (0-0.5) x10^3/uL Immature Gran # (Auto) (0.00-0.03) x10^3u/L Absolute Lymphs (auto) (1.0-4.6) x10^3/uL Absolute Monos (auto) (0.0-1.3) x10^3/uL Absolute Nucleated RBC (0.00-0.01) x10^3u/L Lymphocytes % (24.0-44.0) % Monocytes % (0.0-12.0) % Eosinophils % (0.00-5.0) % Basophils % (0.0-0.4) % Absolute Granulocytes (1.4-6.9) x10^3/uL Basophils # (0-0.4) x10^3/uL PT (9.4-12.5) SECONDS INR (0.8-3.0) APTT (25.1-36.5) SECONDS D-Dimer (0.0-0.50) mg/L Sodium (137-145) mmol/L Potassium (3.5-5.1) mmol/L Chloride (98-107) mmol/L Carbon Dioxide (22-30) mmol/L Anion Gap (5-15) MEQ/L BUN (7-17) mg/dL Creatinine (0.52-1.04) mg/dL Estimated GFR ML/MIN Glucose (74-106) mg/dL Lactic Acid (0.4-2.0) Calcium (8.4-10.2) mg/dL Total Bilirubin (0.2-1.3) mg/dL AST (14-36) U/L ALT (0-35) U/L Alkaline Phosphatase (38-126) U/L Troponin I 0.119 H* 0.130 H* (0.000-0.034) ng/mL NT-Pro-B Natriuret Pep (0-1800) pg/mL Serum Total Protein (6.3-8.2) g/dL Albumin (3.5-5.0) g/dL Urine Color Yellow (Yellow) Urine Appearance Clear (Clear) Urine pH 6.0 (4.6-8.0) Ur Specific [place] >=1.030 A (1.005-1.030) Urine Protein Negative (Negative) Urine Ketones Negative (Negative) Urine Blood Negative (Negative) Urine Nitrite Negative (Negative) Urine Bilirubin Negative (Negative) Urine Urobilinogen 0.2 (0.2) mg/dL Ur Leukocyte Esterase Negative (Negative) U Hyaline Cast (Auto) 0-2 (0-2) /LPF Urine Microscopic RBC 0-2 (0-5) /HPF Urine Microscopic WBC 0-2 (0-5) /HPF Ur Epithelial Cells None Seen (None Seen) /HPF Urine Bacteria Moderate A (None Seen) /HPF Urine Culture Reflexed NO (NO) Urine Glucose Negative (Negative) mg/dL Influenza Type A Ag (NEGATIVE) Influenza Type B Ag (NEGATIVE) RSV (PCR) (Negative) SARS-CoV-2 (PCR) (NEGATIVE) 10/14/22 10/14/22 10/14/22 Range/Units 15:21 15:21 15:21 WBC (4.0-10.5) x10^3/uL RBC (4.1-5.4) x10^6/uL Hgb (12.0-16.0) g/dL Hct (35-47) % MCV (78-100) fL MCH (26-32) pg MCHC (32-36) g/dL RDW (11.5-14.0) % Plt Count (150-450) x10^3/uL MPV (7.5-11.0) fL Gran % (36.0-66.0) % Immature Gran % (Auto) (0.00-0.4) % Nucleat RBC Rel Count (0.00-0.1) % Eos # (Auto) (0-0.5) x10^3/uL Immature Gran # (Auto) (0.00-0.03) x10^3u/L Absolute Lymphs (auto) (1.0-4.6) x10^3/uL Absolute Monos (auto) (0.0-1.3) x10^3/uL Absolute Nucleated RBC (0.00-0.01) x10^3u/L Lymphocytes % (24.0-44.0) % Monocytes % (0.0-12.0) % Eosinophils % (0.00-5.0) % Basophils % (0.0-0.4) % Absolute Granulocytes (1.4-6.9) x10^3/uL Basophils # (0-0.4) x10^3/uL PT 11.3 (9.4-12.5) SECONDS INR 1.07 (0.8-3.0) APTT 24.2 L (25.1-36.5) SECONDS D-Dimer (0.0-0.50) mg/L Sodium 136 L (137-145) mmol/L Potassium 4.6 (3.5-5.1) mmol/L Chloride 108 H (98-107) mmol/L Carbon Dioxide 24 (22-30) mmol/L Anion Gap 9.3 (5-15) MEQ/L BUN 29 H (7-17) mg/dL Creatinine 0.95 (0.52-1.04) mg/dL Estimated GFR > 60.0 ML/MIN Glucose 178 H (74-106) mg/dL Lactic Acid (0.4-2.0) Calcium 9.2 (8.4-10.2) mg/dL Total Bilirubin 0.50 (0.2-1.3) mg/dL AST 94 H (14-36) U/L ALT 85 H (0-35) U/L Alkaline Phosphatase 85 (38-126) U/L Troponin I (0.000-0.034) ng/mL NT-Pro-B Natriuret Pep 5570 H (0-1800) pg/mL Serum Total Protein 7.0 (6.3-8.2) g/dL Albumin 4.0 (3.5-5.0) g/dL Urine Color (Yellow) Urine Appearance (Clear) Urine pH (4.6-8.0) Ur Specific [place] (1.005-1.030) Urine Protein (Negative) Urine Ketones (Negative) Urine Blood (Negative) Urine Nitrite (Negative) Urine Bilirubin (Negative) Urine Urobilinogen (0.2) mg/dL Ur Leukocyte Esterase (Negative) U Hyaline Cast (Auto) (0-2) /LPF Urine Microscopic RBC (0-5) /HPF Urine Microscopic WBC (0-5) /HPF Ur Epithelial Cells (None Seen) /HPF Urine Bacteria (None Seen) /HPF Urine Culture Reflexed (NO) Urine Glucose (Negative) mg/dL Influenza Type A Ag NEGATIVE (NEGATIVE) Influenza Type B Ag NEGATIVE (NEGATIVE) RSV (PCR) NEGATIVE (Negative) SARS-CoV-2 (PCR) NEGATIVE (NEGATIVE) 10/14/22 10/14/22 10/14/22 Range/Units 15:21 14:59 14:59 WBC 6.5 (4.0-10.5) x10^3/uL RBC 4.36 (4.1-5.4) x10^6/uL Hgb 13.0 (12.0-16.0) g/dL Hct 41.1 (35-47) % MCV 94.3 (78-100) fL MCH 29.8 (26-32) pg MCHC 31.6 L (32-36) g/dL RDW 13.5 (11.5-14.0) % Plt Count 220 (150-450) x10^3/uL MPV 10.9 (7.5-11.0) fL Gran % 61.0 (36.0-66.0) % Immature Gran % (Auto) 0.5 H (0.00-0.4) % Nucleat RBC Rel Count 0.0 (0.00-0.1) % Eos # (Auto) 0.24 (0-0.5) x10^3/uL Immature Gran # (Auto) 0.03 (0.00-0.03) x10^3u/L Absolute Lymphs (auto) 1.74 (1.0-4.6) x10^3/uL Absolute Monos (auto) 0.46 (0.0-1.3) x10^3/uL Absolute Nucleated RBC 0.00 (0.00-0.01) x10^3u/L Lymphocytes % 26.9 (24.0-44.0) % Monocytes % 7.1 (0.0-12.0) % Eosinophils % 3.7 (0.00-5.0) % Basophils % 0.8 (0.0-0.4) % Absolute Granulocytes 3.95 (1.4-6.9) x10^3/uL Basophils # 0.05 (0-0.4) x10^3/uL PT (9.4-12.5) SECONDS INR (0.8-3.0) APTT (25.1-36.5) SECONDS D-Dimer 0.68 H* (0.0-0.50) mg/L Sodium (137-145) mmol/L Potassium (3.5-5.1) mmol/L Chloride (98-107) mmol/L Carbon Dioxide (22-30) mmol/L Anion Gap (5-15) MEQ/L BUN (7-17) mg/dL Creatinine (0.52-1.04) mg/dL Estimated GFR ML/MIN Glucose (74-106) mg/dL Lactic Acid 1.5 (0.4-2.0) Calcium (8.4-10.2) mg/dL Total Bilirubin (0.2-1.3) mg/dL AST (14-36) U/L ALT (0-35) U/L Alkaline Phosphatase (38-126) U/L Troponin I (0.000-0.034) ng/mL NT-Pro-B Natriuret Pep (0-1800) pg/mL Serum Total Protein (6.3-8.2) g/dL Albumin (3.5-5.0) g/dL Urine Color (Yellow) Urine Appearance (Clear) Urine pH (4.6-8.0) Ur Specific [place] (1.005-1.030) Urine Protein (Negative) Urine Ketones (Negative) Urine Blood (Negative) Urine Nitrite (Negative) Urine Bilirubin (Negative) Urine Urobilinogen (0.2) mg/dL Ur Leukocyte Esterase (Negative) U Hyaline Cast (Auto) (0-2) /LPF Urine Microscopic RBC (0-5) /HPF Urine Microscopic WBC (0-5) /HPF Ur Epithelial Cells (None Seen) /HPF Urine Bacteria (None Seen) /HPF Urine Culture Reflexed (NO) Urine Glucose (Negative) mg/dL Influenza Type A Ag (NEGATIVE) Influenza Type B Ag (NEGATIVE) RSV (PCR) (Negative) SARS-CoV-2 (PCR) (NEGATIVE) - Progress Progress Note: 10/14/22 20:37 Dr. Lund wants to transfer pt [facility] all refuse pt Dr. Lund ok w obs admit Pt w obs admit due to new onset of Afib/CHF/Elevated troponin 10/14/22 20:39 ASA 324mg po x1 40mg IV Lasix Labs/CXR/CTA of chest reviewed and results shared w pt/family Afib rate controlled during entire ER stay 10/14/22 23:30 Discussed with : Karson Counseled pt/family regarding: lab results, diagnosis, need for follow-up, rad results - Departure Departure Disposition: Observation Clinical Impression: Atrial fibrillation, CHF (congestive heart failure) Condition: Stable Critical Care Time: Yes Critical Care Time(excluding separately billable procedures): Critical 30-74 mins
[2022-10-14 15:56] LABS: INFLUENZA A NEGATIVE (NEGATIVE); INFLUENZA B NEGATIVE (NEGATIVE); RESPIRATORY SYNCTIAL VIRUS NEGATIVE (Negative); SARS-CoV-2 Xpert Express NEGATIVE (NEGATIVE)
[2022-10-14] MEDS ORDERED: BABY ASPIRIN 81 MG CHEW PO ONE (16:42)
[2022-10-14] MEDS ORDERED: BABY ASPIRIN 81 MG CHEW ONE (16:58)
--- NOTE | 2022-10-14 18:40 | XRAY ---
Indication: Dyspnea. Atrial fibrillation. Comparison: August 12, 2011 Portable chest demonstrates new left infrahilar subsegmental atelectasis/scarring. Incidental chronic lung markings and tiny calcified granulomas. Heart not enlarged for AP portable technique again with CABG. Bony thorax intact again with osteopenia and degenerative changes. New right shoulder arthroplasty. Impression: Nonacute chest with chronic features.
[2022-10-14] MEDS ORDERED: Lasix 40 MG/4 ML IV ONE (19:56)
[2022-10-14] MEDS ORDERED: Lasix 40 MG/4 ML ONE (20:01)
[2022-10-14] MEDS ORDERED: Cardizem IV 50 MG/10 ML IV ONE (20:17)
[2022-10-14] MEDS ORDERED: CARDIZEM DRIP 100 MG/100 ML D5W 100 ML IV ONE (20:17)
[2022-10-14] MEDS ORDERED: ENOXAPARIN SODIUM SQ SCH (21:00)
[2022-10-14 21:15] LABS: Appearance Clear (Clear); Bacteria Moderate /HPF (None Seen); Bilirubin Negative (Negative); Blood Negative (Negative); Epithelial Cells None Seen /HPF (None Seen); Glucose Negative (Negative); Hyaline Casts 0-2 /LPF (0-2); Ketones Negative (Negative); Leukocyte Esterase Negative (Negative); Nitrite Negative (Negative); Protein,Urine Dip Negative (Negative); RBC 0-2 /HPF (0-5); Specific Gravity >=1.030 (1.005-1.030); Urobilinogen 0.2 mg/dL (0.2); WBC 0-2 /HPF (0-5)
[2022-10-14 21:26] LABS: ADD URINE CULTURE? NO (NO)
[2022-10-14] MEDS: Glucophage 500 MG PO SCH (22:37)
[2022-10-14] MEDS: CLARITIN 10 MG PO SCH (22:40)
[2022-10-14] MEDS: DESYREL 50 MG PO SCH (22:41)
[2022-10-14] MEDS: ZOCOR 20MG PO SCH (22:41)
[2022-10-14] MEDS: Ditropan 5 MG PO SCH (22:41)
[2022-10-15 05:13] LABS: ANION GAP 8.7 MEQ/L (5-15); Calcium 9.2 mg/dL (8.4-10.2); Creatinine 1 0.99 mg/dL (0.52-1.04); EST GLOMERULAR FILTRATION RATE 57.7 ML/MIN; Potassium 4.4 mmol/L (3.5-5.1)
[2022-10-15 05:34] LABS: Hematocrit 38.4 % (35-47); Hemoglobin 12.4 g/dL (12.0-16.0); Mean Cell Volume 92.3 fL (78-100); Mean Corpuscular Hemoglobin 29.8 pg (26-32); Mean Corpuscular Hgb Concent. 32.3 g/dL (32-36); Mean Platelet Volume 11.1 fL (7.5-11.0); Platelet Count 203 x10^3/uL (150-450); Red Blood Count 4.16 x10^6/uL (4.1-5.4); Red Cell Distribution Width 13.6 % (11.5-14.0); White Blood Count 5.4 x10^3/uL (4.0-10.5)
--- NOTE | 2022-10-15 08:30 | XRAY ---
Indication: Chest pain. Elevated d-dimer. Multiple contiguous axial images obtained through the chest using 80 cc Isovue 370 contrast and PE protocol. Comparison: None Good opacification of the pulmonary arteries to include the lobar and segmental branches. No pulmonary embolus. Heart is borderline enlarged with CABG surgery. Aorta is mildly arteriosclerotic without aneurysm/dissection. No pathologic mediastinal/hilar lymphadenopathy. Small hiatal hernia. Examination of lung parenchyma demonstrates mild pulmonary emphysema and scattered bilateral subsegmental atelectasis/scarring. Small right and tiny left effusions. No suspicious pulmonary mass/nodule, infiltrate, or pneumothorax. Bony thorax intact with osteopenia, mild degenerative changes throughout the spine, sternotomy wires, and right shoulder arthroplasty. Limited upper abdomen demonstrates tiny hepatic/splenic calcified granulomas. Impression: 1. Negative pulmonary embolus. 2. Borderline cardiomegaly with bilateral effusions right greater than left. Rule out mild/early cardiac decompensation. 3. Chronic findings including pulmonary emphysema, hiatal hernia, chronic bony findings, and old granulomatous disease. Comment: Preliminary interpretation made by [facility]. No critical discrepancy.
[2022-10-15] MEDS: HOLD METFORMIN PRODUCTS FOR 48 HOURS MC SCH (09:46)
[2022-10-15] MEDS: Glucophage 500 MG PO SCH (09:46)
[2022-10-15] MEDS: Cozaar 50 MG PO SCH (11:27)
[2022-10-15] MEDS: Ditropan 5 MG PO SCH ×2 (11:27→21:57)
[2022-10-15] MEDS: Prozac 20 MG PO SCH (11:27)
[2022-10-15] MEDS: SYNTHROID 100 MCG PO SCH (11:27)
[2022-10-15] MEDS: Lasix 40 MG/4 ML IV SCH ×2 (11:27→17:03)
[2022-10-15] MEDS: ENOXAPARIN SODIUM SQ SCH ×2 (11:28→21:56)
--- NOTE | 2022-10-15 14:39 | PCM.HP ---
History of Present Illness - Chief Complaint Chief Complaint: new onset afib, CHF History of Present Illness: is a 77 year old female patient of Dr Justice with Hx CAD / S/P CABG [address] Vann remotely. PMHx includes HTN, CAD,DM2,Hypothyroid,Arthritis. C/O heart palpitations and shortness of breath x 3 days prior to coming to ER. 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 Advised on treatment and will see patient as outpatient.Will start Metoprolol Tartrate 25mg q 12H.Will start Lasix 20mg oral on discharge,giving IV now . - Review of Systems Constitutional: Fatigue Eyes: No Symptoms Ears, Nose, & Throat: Nose Congestion, Sinus Drainage Respiratory: Short Of Breath, Other (denies productive cough) Cardiac: Palpitations (x 3 days prior to ER) Abdominal/Gastrointestinal: No Symptoms Genitourinary Symptoms: No Symptoms Musculoskeletal: Arthralgias Skin: No Symptoms Neurological: No Symptoms Psychological: No Symptoms Endocrine: No Symptoms Hematologic/Lymphatic: No Symptoms Medications & Allergies Home Medications: Home Medication List Fluoxetine HCl 20 mg PO DAILY 07/28/20 [History Confirmed 10/14/22] Levothyroxine Sodium 100 mcg PO DAILY 07/28/20 [History Confirmed 10/14/22] Losartan Potassium 50 mg PO DAILY 07/28/20 [History Confirmed 10/14/22] Lovastatin 40 mg PO HS 07/28/20 [History Confirmed 10/14/22] Metformin HCl 500 mg [Glucophage 500 MG] 500 mg PO BID 07/28/20 [History Confirmed 10/14/22] Trazodone HCl 50 mg [Desyrel 50 mg] 50 mg PO HS 07/28/20 [History Confirmed 10/14/22] Oxybutynin Chloride 5 mg [Ditropan 5 MG] 5 mg PO BID 07/29/20 [History Confirmed 10/14/22] Cetirizine HCl [Zyrtec] 10 mg PO HS 08/16/20 [History Confirmed 10/14/22] Apixaban [Eliquis 5 mg Tablet] 5 mg PO BID #60 tablet 10/17/22 [Rx] Allergies/Adverse Reactions: Allergies Allergy/AdvReac Type Severity Reaction Status Date / Time No Known Drug Allergies Allergy Verified 10/14/22 14:54 - Past Medical History Past Medical History: Yes Neurological History: No Pertinent History ENT History: No Pertinent History Cardiac History: High Cholesterol, Myocardial Infarction (ND) Respiratory History: No Pertinent History Endocrine Medical History: Diabetes Type II, Hypothyroidism Musculoskelatal History: Arthritis GI Medical History: No Pertinent History History: No Pertinent History Pyscho-Social History: Anxiety, Depression Reproductive Disorders: No Pertinent History - Past Surgical History Past Surgical History: Yes Neuro Surgical History: No Pertinent History Cardiac History: CABG Respiratory Surgery: No Pertinent History GI Surgical History: Appendectomy Genitourinary Surgical Hx: No Pertinent History Musculskeletal Surgical Hx: Joint Replacement Female Surgical History: Hysterectomy, Tubal Ligation Other Surgical History: Right shoulder replacement and right knee replacement, ooperectomy (one ovary remains), Right rotator cuff repair, - Social History Smoking Status: Never smoker Exposure to second hand smoke: No Alcohol: None Drug Use: none Significant Family History: no pertinent family hx - Physical Exam Vital Signs: Vital Signs - 24 hr Temp Pulse Resp BP Pulse Ox 10/15/22 11:53 97.6 F 108 H 18 122/56 94 L 10/15/22 07:42 97.5 F 88 20 118/68 93 L 10/15/22 04:00 97.8 F 93 H 18 97/54 93 L 10/14/22 23:58 97.7 F 66 16 96/51 96 10/14/22 23:31 99 10/14/22 21:28 97.5 F 104 H 16 129/62 95 10/14/22 21:22 97.5 F 104 H 16 129/62 95 10/14/22 20:54 90 18 122/71 93 L 10/14/22 20:00 90 19 122/71 94 L 10/14/22 19:00 90 22 121/63 93 L 10/14/22 18:36 84 18 136/76 98 10/14/22 17:10 103 H 18 119/91 97 10/14/22 14:54 96.3 F 87 20 129/76 99 General Appearance: no apparent distress Neurologic Exam: alert, oriented x 3, cooperative, normal mood/affect Eye Exam: eyes nml inspection Ears, Nose, Throat Exam: moist mucous membranes, other (mild nasal congestion maxillary tenderness) Neck Exam: normal inspection Respiratory Exam: crackles/rales (mild bibasilar) Cardiovascular Exam: tachycardia, irregular Gastrointestinal/Abdomen Exam: soft (nontender) Pelvic Exam: not done Rectal Exam: not done Back Exam: normal inspection Extremity Exam: other (trace BLE edema ,some varicosities,no calf tenderness) Skin Exam: normal color, warm, dry Results - Labs Lab/Micro Results: Lab Results-Last 24 Hours 10/14/22 10/14/22 10/14/22 Range/Units 14:59 14:59 15:21 WBC 6.5 (4.0-10.5) x10^3/uL RBC 4.36 (4.1-5.4) x10^6/uL Hgb 13.0 (12.0-16.0) g/dL Hct 41.1 (35-47) % MCV 94.3 (78-100) fL MCH 29.8 (26-32) pg MCHC 31.6 L (32-36) g/dL RDW 13.5 (11.5-14.0) % Plt Count 220 (150-450) x10^3/uL MPV 10.9 (7.5-11.0) fL Gran % 61.0 (36.0-66.0) % Immature Gran % (Auto) 0.5 H (0.00-0.4) % Nucleat RBC Rel Count 0.0 (0.00-0.1) % Eos # (Auto) 0.24 (0-0.5) x10^3/uL Immature Gran # (Auto) 0.03 (0.00-0.03) x10^3u/L Absolute Lymphs (auto) 1.74 (1.0-4.6) x10^3/uL Absolute Monos (auto) 0.46 (0.0-1.3) x10^3/uL Absolute Nucleated RBC 0.00 (0.00-0.01) x10^3u/L Lymphocytes % 26.9 (24.0-44.0) % Monocytes % 7.1 (0.0-12.0) % Eosinophils % 3.7 (0.00-5.0) % Basophils % 0.8 (0.0-0.4) % Absolute Granulocytes 3.95 (1.4-6.9) x10^3/uL Basophils # 0.05 (0-0.4) x10^3/uL PT (9.4-12.5) SECONDS INR (0.8-3.0) APTT (25.1-36.5) SECONDS D-Dimer 0.68 H* (0.0-0.50) mg/L Sodium (137-145) mmol/L Potassium (3.5-5.1) mmol/L Chloride (98-107) mmol/L Carbon Dioxide (22-30) mmol/L Anion Gap (5-15) MEQ/L BUN (7-17) mg/dL Creatinine (0.52-1.04) mg/dL Estimated GFR ML/MIN Glucose (74-106) mg/dL POC Glucometer (74 to 106) mg/dL Lactic Acid 1.5 (0.4-2.0) Calcium (8.4-10.2) mg/dL Total Bilirubin (0.2-1.3) mg/dL AST (14-36) U/L ALT (0-35) U/L Alkaline Phosphatase (38-126) U/L Troponin I (0.000-0.034) ng/mL NT-Pro-B Natriuret Pep (0-1800) pg/mL Serum Total Protein (6.3-8.2) g/dL Albumin (3.5-5.0) g/dL TSH 3rd Generation (0.47-4.68) mIU/L Urine Color (Yellow) Urine Appearance (Clear) Urine pH (4.6-8.0) Ur Specific [place] (1.005-1.030) Urine Protein (Negative) Urine Ketones (Negative) Urine Blood (Negative) Urine Nitrite (Negative) Urine Bilirubin (Negative) Urine Urobilinogen (0.2) mg/dL Ur Leukocyte Esterase (Negative) U Hyaline Cast (Auto) (0-2) /LPF Urine Microscopic RBC (0-5) /HPF Urine Microscopic WBC (0-5) /HPF Ur Epithelial Cells (None Seen) /HPF Urine Bacteria (None Seen) /HPF Urine Culture Reflexed (NO) Urine Glucose (Negative) mg/dL Influenza Type A Ag (NEGATIVE) Influenza Type B Ag (NEGATIVE) RSV (PCR) (Negative) SARS-CoV-2 (PCR) (NEGATIVE) 10/14/22 10/14/22 10/14/22 Range/Units 15:21 15:21 15:21 WBC (4.0-10.5) x10^3/uL RBC (4.1-5.4) x10^6/uL Hgb (12.0-16.0) g/dL Hct (35-47) % MCV (78-100) fL MCH (26-32) pg MCHC (32-36) g/dL RDW (11.5-14.0) % Plt Count (150-450) x10^3/uL MPV (7.5-11.0) fL Gran % (36.0-66.0) % Immature Gran % (Auto) (0.00-0.4) % Nucleat RBC Rel Count (0.00-0.1) % Eos # (Auto) (0-0.5) x10^3/uL Immature Gran # (Auto) (0.00-0.03) x10^3u/L Absolute Lymphs (auto) (1.0-4.6) x10^3/uL Absolute Monos (auto) (0.0-1.3) x10^3/uL Absolute Nucleated RBC (0.00-0.01) x10^3u/L Lymphocytes % (24.0-44.0) % Monocytes % (0.0-12.0) % Eosinophils % (0.00-5.0) % Basophils % (0.0-0.4) % Absolute Granulocytes (1.4-6.9) x10^3/uL Basophils # (0-0.4) x10^3/uL PT 11.3 (9.4-12.5) SECONDS INR 1.07 (0.8-3.0) APTT 24.2 L (25.1-36.5) SECONDS D-Dimer (0.0-0.50) mg/L Sodium 136 L (137-145) mmol/L Potassium 4.6 (3.5-5.1) mmol/L Chloride 108 H (98-107) mmol/L Carbon Dioxide 24 (22-30) mmol/L Anion Gap 9.3 (5-15) MEQ/L BUN 29 H (7-17) mg/dL Creatinine 0.95 (0.52-1.04) mg/dL Estimated GFR > 60.0 ML/MIN Glucose 178 H (74-106) mg/dL POC Glucometer (74 to 106) mg/dL Lactic Acid (0.4-2.0) Calcium 9.2 (8.4-10.2) mg/dL Total Bilirubin 0.50 (0.2-1.3) mg/dL AST 94 H (14-36) U/L ALT 85 H (0-35) U/L Alkaline Phosphatase 85 (38-126) U/L Troponin I (0.000-0.034) ng/mL NT-Pro-B Natriuret Pep 5570 H (0-1800) pg/mL Serum Total Protein 7.0 (6.3-8.2) g/dL Albumin 4.0 (3.5-5.0) g/dL TSH 3rd Generation (0.47-4.68) mIU/L Urine Color (Yellow) Urine Appearance (Clear) Urine pH (4.6-8.0) Ur Specific [place] (1.005-1.030) Urine Protein (Negative) Urine Ketones (Negative) Urine Blood (Negative) Urine Nitrite (Negative) Urine Bilirubin (Negative) Urine Urobilinogen (0.2) mg/dL Ur Leukocyte Esterase (Negative) U Hyaline Cast (Auto) (0-2) /LPF Urine Microscopic RBC (0-5) /HPF Urine Microscopic WBC (0-5) /HPF Ur Epithelial Cells (None Seen) /HPF Urine Bacteria (None Seen) /HPF Urine Culture Reflexed (NO) Urine Glucose (Negative) mg/dL Influenza Type A Ag NEGATIVE (NEGATIVE) Influenza Type B Ag NEGATIVE (NEGATIVE) RSV (PCR) NEGATIVE (Negative) SARS-CoV-2 (PCR) NEGATIVE (NEGATIVE) 10/14/22 10/14/22 10/14/22 Range/Units 15:21 17:43 20:43 WBC (4.0-10.5) x10^3/uL RBC (4.1-5.4) x10^6/uL Hgb (12.0-16.0) g/dL Hct (35-47) % MCV (78-100) fL MCH (26-32) pg MCHC (32-36) g/dL RDW (11.5-14.0) % Plt Count (150-450) x10^3/uL MPV (7.5-11.0) fL Gran % (36.0-66.0) % Immature Gran % (Auto) (0.00-0.4) % Nucleat RBC Rel Count (0.00-0.1) % Eos # (Auto) (0-0.5) x10^3/uL Immature Gran # (Auto) (0.00-0.03) x10^3u/L Absolute Lymphs (auto) (1.0-4.6) x10^3/uL Absolute Monos (auto) (0.0-1.3) x10^3/uL Absolute Nucleated RBC (0.00-0.01) x10^3u/L Lymphocytes % (24.0-44.0) % Monocytes % (0.0-12.0) % Eosinophils % (0.00-5.0) % Basophils % (0.0-0.4) % Absolute Granulocytes (1.4-6.9) x10^3/uL Basophils # (0-0.4) x10^3/uL PT (9.4-12.5) SECONDS INR (0.8-3.0) APTT (25.1-36.5) SECONDS D-Dimer (0.0-0.50) mg/L Sodium (137-145) mmol/L Potassium (3.5-5.1) mmol/L Chloride (98-107) mmol/L Carbon Dioxide (22-30) mmol/L Anion Gap (5-15) MEQ/L BUN (7-17) mg/dL Creatinine (0.52-1.04) mg/dL Estimated GFR ML/MIN Glucose (74-106) mg/dL POC Glucometer (74 to 106) mg/dL Lactic Acid (0.4-2.0) Calcium (8.4-10.2) mg/dL Total Bilirubin (0.2-1.3) mg/dL AST (14-36) U/L ALT (0-35) U/L Alkaline Phosphatase (38-126) U/L Troponin I 0.130 H* 0.119 H* (0.000-0.034) ng/mL NT-Pro-B Natriuret Pep (0-1800) pg/mL Serum Total Protein (6.3-8.2) g/dL Albumin (3.5-5.0) g/dL TSH 3rd Generation (0.47-4.68) mIU/L Urine Color Yellow (Yellow) Urine Appearance Clear (Clear) Urine pH 6.0 (4.6-8.0) Ur Specific [place] >=1.030 A (1.005-1.030) Urine Protein Negative (Negative) Urine Ketones Negative (Negative) Urine Blood Negative (Negative) Urine Nitrite Negative (Negative) Urine Bilirubin Negative (Negative) Urine Urobilinogen 0.2 (0.2) mg/dL Ur Leukocyte Esterase Negative (Negative) U Hyaline Cast (Auto) 0-2 (0-2) /LPF Urine Microscopic RBC 0-2 (0-5) /HPF Urine Microscopic WBC 0-2 (0-5) /HPF Ur Epithelial Cells None Seen (None Seen) /HPF Urine Bacteria Moderate A (None Seen) /HPF Urine Culture Reflexed NO (NO) Urine Glucose Negative (Negative) mg/dL Influenza Type A Ag (NEGATIVE) Influenza Type B Ag (NEGATIVE) RSV (PCR) (Negative) SARS-CoV-2 (PCR) (NEGATIVE) 10/14/22 10/15/22 10/15/22 Range/Units 22:53 04:34 04:34 WBC 5.4 (4.0-10.5) x10^3/uL RBC 4.16 (4.1-5.4) x10^6/uL Hgb 12.4 (12.0-16.0) g/dL Hct 38.4 (35-47) % MCV 92.3 (78-100) fL MCH 29.8 (26-32) pg MCHC 32.3 (32-36) g/dL RDW 13.6 (11.5-14.0) % Plt Count 203 (150-450) x10^3/uL MPV 11.1 H (7.5-11.0) fL Gran % (36.0-66.0) % Immature Gran % (Auto) (0.00-0.4) % Nucleat RBC Rel Count (0.00-0.1) % Eos # (Auto) (0-0.5) x10^3/uL Immature Gran # (Auto) (0.00-0.03) x10^3u/L Absolute Lymphs (auto) (1.0-4.6) x10^3/uL Absolute Monos (auto) (0.0-1.3) x10^3/uL Absolute Nucleated RBC (0.00-0.01) x10^3u/L Lymphocytes % (24.0-44.0) % Monocytes % (0.0-12.0) % Eosinophils % (0.00-5.0) % Basophils % (0.0-0.4) % Absolute Granulocytes (1.4-6.9) x10^3/uL Basophils # (0-0.4) x10^3/uL PT (9.4-12.5) SECONDS INR (0.8-3.0) APTT (25.1-36.5) SECONDS D-Dimer (0.0-0.50) mg/L Sodium 138 (137-145) mmol/L Potassium 4.4 (3.5-5.1) mmol/L Chloride 105 (98-107) mmol/L Carbon Dioxide 28 (22-30) mmol/L Anion Gap 8.7 (5-15) MEQ/L BUN 27 H (7-17) mg/dL Creatinine 0.99 (0.52-1.04) mg/dL Estimated GFR 57.7 ML/MIN Glucose 97 (74-106) mg/dL POC Glucometer (74 to 106) mg/dL Lactic Acid (0.4-2.0) Calcium 9.2 (8.4-10.2) mg/dL Total Bilirubin (0.2-1.3) mg/dL AST (14-36) U/L ALT (0-35) U/L Alkaline Phosphatase (38-126) U/L Troponin I 0.114 H* (0.000-0.034) ng/mL NT-Pro-B Natriuret Pep 6520 H (0-1800) pg/mL Serum Total Protein (6.3-8.2) g/dL Albumin (3.5-5.0) g/dL TSH 3rd Generation (0.47-4.68) mIU/L Urine Color (Yellow) Urine Appearance (Clear) Urine pH (4.6-8.0) Ur Specific [place] (1.005-1.030) Urine Protein (Negative) Urine Ketones (Negative) Urine Blood (Negative) Urine Nitrite (Negative) Urine Bilirubin (Negative) Urine Urobilinogen (0.2) mg/dL Ur Leukocyte Esterase (Negative) U Hyaline Cast (Auto) (0-2) /LPF Urine Microscopic RBC (0-5) /HPF Urine Microscopic WBC (0-5) /HPF Ur Epithelial Cells (None Seen) /HPF Urine Bacteria (None Seen) /HPF Urine Culture Reflexed (NO) Urine Glucose (Negative) mg/dL Influenza Type A Ag (NEGATIVE) Influenza Type B Ag (NEGATIVE) RSV (PCR) (Negative) SARS-CoV-2 (PCR) (NEGATIVE) 10/15/22 10/15/22 10/15/22 Range/Units 04:34 07:15 11:36 WBC (4.0-10.5) x10^3/uL RBC (4.1-5.4) x10^6/uL Hgb (12.0-16.0) g/dL Hct (35-47) % MCV (78-100) fL MCH (26-32) pg MCHC (32-36) g/dL RDW (11.5-14.0) % Plt Count (150-450) x10^3/uL MPV (7.5-11.0) fL Gran % (36.0-66.0) % Immature Gran % (Auto) (0.00-0.4) % Nucleat RBC Rel Count (0.00-0.1) % Eos # (Auto) (0-0.5) x10^3/uL Immature Gran # (Auto) (0.00-0.03) x10^3u/L Absolute Lymphs (auto) (1.0-4.6) x10^3/uL Absolute Monos (auto) (0.0-1.3) x10^3/uL Absolute Nucleated RBC (0.00-0.01) x10^3u/L Lymphocytes % (24.0-44.0) % Monocytes % (0.0-12.0) % Eosinophils % (0.00-5.0) % Basophils % (0.0-0.4) % Absolute Granulocytes (1.4-6.9) x10^3/uL Basophils # (0-0.4) x10^3/uL PT (9.4-12.5) SECONDS INR (0.8-3.0) APTT (25.1-36.5) SECONDS D-Dimer (0.0-0.50) mg/L Sodium (137-145) mmol/L Potassium (3.5-5.1) mmol/L Chloride (98-107) mmol/L Carbon Dioxide (22-30) mmol/L Anion Gap (5-15) MEQ/L BUN (7-17) mg/dL Creatinine (0.52-1.04) mg/dL Estimated GFR ML/MIN Glucose (74-106) mg/dL POC Glucometer 84 156 H (74 to 106) mg/dL Lactic Acid (0.4-2.0) Calcium (8.4-10.2) mg/dL Total Bilirubin (0.2-1.3) mg/dL AST (14-36) U/L ALT (0-35) U/L Alkaline Phosphatase (38-126) U/L Troponin I (0.000-0.034) ng/mL NT-Pro-B Natriuret Pep (0-1800) pg/mL Serum Total Protein (6.3-8.2) g/dL Albumin (3.5-5.0) g/dL TSH 3rd Generation 4.100 (0.47-4.68) mIU/L Urine Color (Yellow) Urine Appearance (Clear) Urine pH (4.6-8.0) Ur Specific [place] (1.005-1.030) Urine Protein (Negative) Urine Ketones (Negative) Urine Blood (Negative) Urine Nitrite (Negative) Urine Bilirubin (Negative) Urine Urobilinogen (0.2) mg/dL Ur Leukocyte Esterase (Negative) U Hyaline Cast (Auto) (0-2) /LPF Urine Microscopic RBC (0-5) /HPF Urine Microscopic WBC (0-5) /HPF Ur Epithelial Cells (None Seen) /HPF Urine Bacteria (None Seen) /HPF Urine Culture Reflexed (NO) Urine Glucose (Negative) mg/dL Influenza Type A Ag (NEGATIVE) Influenza Type B Ag (NEGATIVE) RSV (PCR) (Negative) SARS-CoV-2 (PCR) (NEGATIVE) - Radiology Impressions Radiology Exams & Impressions: Radiology Procedures Category Date Time Status CHEST 1 VIEW (PORTABLE) Stat Exams 10/14/22 16:59 Completed CHEST WITH CONTRAST [CT] Stat Exams 10/14/22 18:28 Completed ECHO W/2D AND DOPPLER [US] Routine Exams 10/15/22 20:44 Taken Assessment/Plan (1) Atrial fibrillation Current Visit: Yes Status: Acute Qualifiers: Atrial fibrillation type: unspecified Qualified Code(s): I48.91 - Unspecified atrial fibrillation Assessment & Plan: Lovenox started, Cardiology consult requested with Dr Vann Code(s): I48.91 - UNSPECIFIED ATRIAL FIBRILLATION (2) CHF (congestive heart failure) Current Visit: Yes Status: Acute Qualifiers: Heart failure type: unspecified Assessment & Plan: ECHO ordered Code(s): I50.9 - HEART FAILURE, UNSPECIFIED (3) Elevated troponin Current Visit: Yes Status: Acute Assessment & Plan: mild elevation trending down,due to CHF Code(s): R77.8 - OTHER SPECIFIED ABNORMALITIES OF PLASMA PROTEINS (4) S/P CABG (coronary artery bypass graft) Current Visit: Yes Status: Resolved Assessment & Plan: 2002 [facility] Code(s): Z95.1 - PRESENCE OF AORTOCORONARY BYPASS GRAFT
[2022-10-15] MEDS: Klor Con PO SCH (17:41)
[2022-10-15] MEDS ORDERED: Lopressor 25MG Tab ONE (18:27)
[2022-10-15] MEDS: Lopressor 25MG Tab PO SCH ×2 (18:28→21:58)
[2022-10-15] MEDS: DESYREL 50 MG PO SCH (21:57)
[2022-10-15] MEDS: ZOCOR 20MG PO SCH (21:57)
[2022-10-15] MEDS: CLARITIN 10 MG PO SCH (21:57)
[2022-10-16] MEDS: Klor Con PO SCH (09:47)
[2022-10-16] MEDS: Lopressor 25MG Tab PO SCH (09:47)
[2022-10-16] MEDS: SYNTHROID 100 MCG PO SCH (09:47)
[2022-10-16] MEDS: ENOXAPARIN SODIUM SQ SCH ×2 (09:47→22:42)
[2022-10-16] MEDS: Ditropan 5 MG PO SCH ×2 (09:47→22:41)
[2022-10-16] MEDS: Cozaar 50 MG PO SCH (09:47)
[2022-10-16] MEDS: Prozac 20 MG PO SCH (09:48)
[2022-10-16] MEDS ORDERED: LASIX 20 MG PO SCH (10:00)
[2022-10-16 11:05] LABS: ALBUMIN 3.7 g/dL (3.5-5.0); ANION GAP 9.6 MEQ/L (5-15); BILIRUBIN,TOTAL 0.4 mg/dL (0.2-1.3); Calcium 8.5 mg/dL (8.4-10.2); Creatinine 1 1.2 mg/dL (0.52-1.04); EST GLOMERULAR FILTRATION RATE 46.2 ML/MIN; Potassium 3.3 mmol/L (3.5-5.1); Total Protein 6.5 g/dL (6.3-8.2)
[2022-10-16 11:19] LABS: Absolute Neutrophil Ct (ANC) 2.72 x10^3/uL (1.4-6.9); Basophil (Absolute #) 0.04 x10^3/uL (0-0.4); Eosinophil % 7.8 % (0.00-5.0); Hematocrit 39.9 % (35-47); Hemoglobin 12.6 g/dL (12.0-16.0); Lymphocyte (Absolute #) 1.44 x10^3/uL (1.0-4.6); Lymphocytes % 28.2 % (24.0-44.0); Mean Cell Volume 94.3 fL (78-100); Mean Corpuscular Hemoglobin 29.8 pg (26-32); Mean Corpuscular Hgb Concent. 31.6 g/dL (32-36); Mean Platelet Volume 11.1 fL (7.5-11.0); Monocyte (Absolute #) 0.48 x10^3/uL (0.0-1.3); Monocytes % 9.4 % (0.0-12.0); Neutrophil % 53.4 % (36.0-66.0); Platelet Count 227 x10^3/uL (150-450); Red Blood Count 4.23 x10^6/uL (4.1-5.4); Red Cell Distribution Width 13.6 % (11.5-14.0); White Blood Count 5.1 x10^3/uL (4.0-10.5)
--- NOTE | 2022-10-16 12:54 | ECHO ---
Transthoracic echocardiographic examination and color Doppler was done on 10/15/2022. INDICATION: Congestive heart failure. IMPRESSION: 1) GLOBAL LEFT VENTRICULAR HYPOKINESIA WITH A LEFT VENTRICULAR EJECTION FRACTION AROUND 35%. 2) SEVERE MITRAL REGURGITATION. 3) MODERATE AORTIC STENOSIS. 4) MILD TRICUSPID REGURGITATION. RIGHT VENTRICULAR SYSTOLIC PRESSURE OF 44 MM OF MERCURY. 5) MODERATE AORTIC REGURGITATION. 6) MILD PULMONIC INSUFFICIENCY. 7) LEFT VENTRICULAR HYPERTROPHY. 8) MODERATE TO SEVERE LEFT ATRIAL DILATATION. 9) MILDLY DILATED RIGHT SIDE CHAMBER. 10) MILD PULMONIC INSUFFICIENCY. 11) LEFT VENTRICLE DIASTOLIC DYSFUNCTION. The left ventricle is visualized and demonstrated global left ventricular hypokinesia with estimated global ejection fraction around 35%. There is left ventricular hypertrophy. The mitral valve is thickened and has low flow characteristic. There is an associated severe mitral regurgitation. The left atrium is moderate to severely dilated. Tissue Doppler study of the lateral mitral annulus is suggestive of left ventricle diastolic dysfunction. The aortic valve is calcified, has limited opening. The peak gradient across the aortic valve is 15 mm of [place] with a calculated aortic valve area of 1.07 suggestive of moderate to severe aortic stenosis. There is associated moderate aortic regurgitation. The right side chambers are mildly dilated. There is mild tricuspid regurgitation. Right ventricular systolic pressure of 44 mm of [place]. There is also mild pulmonic insufficiency.
[2022-10-16] MEDS ORDERED: Klor Con PO ONE (20:43)
[2022-10-16] MEDS: DESYREL 50 MG PO SCH (22:41)
[2022-10-16] MEDS: ZOCOR 20MG PO SCH (22:42)
[2022-10-16] MEDS: CLARITIN 10 MG PO SCH (22:42)
[2022-10-17 07:34] VITALS: O2SAT 94
[2022-10-17] MEDS ORDERED: Glucophage 500 MG PO SCH (08:00)
--- NOTE | 2022-10-17 08:48 | PCM.NOTE ---
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 B/P 80s/50s after diuresis and starting Metoprolol tartrate 25mg bid which was held night dose testerday and will decrease to 12.5mg bid and hold Lasix 20mg for now.Patient anxious to go home but need to stabilize B/P . Plan home in AM if B/P in range. Patient will have her bring home B/P cuff to compare with mannual cuff readings and will test B/P before each dose of Metoprolol. Objective Exam General Appearance: no apparent distress Neurologic Exam: alert, oriented x 3, normal mood/affect Skin Exam: normal color Ears, Nose, Throat Exam: moist mucous membranes Respiratory Exam: normal breath sounds Cardiovascular Exam: other (irregular rate 90s) Extremity Exam: normal inspection, other (no pitting edema) OBJECTIVE DATA Vital Signs: Vital Signs - 24 hr Temp Pulse Resp BP Pulse Ox 10/17/22 07:33 97.5 F 92 H 16 125/60 94 L 10/17/22 05:22 97.7 F 81 18 94/58 95 10/17/22 00:00 97.5 F 96 H 18 102/53 92 L 10/16/22 20:00 97.7 F 69 17 77/51 95 10/16/22 16:00 98.1 F 117 H 16 96/69 96 10/16/22 12:00 98.0 F 97 H 17 85/53 96 Pain Assessment - Last Documented Pain Intensity 0 Intake and Output: Intake & Output 10/14/22 10/15/22 10/16/22 10/17/22 11:59 11:59 11:59 11:59 Intake Total 980 860 780 Output Total 1700 2500 Balance -720 -4348 780 Weight 77.7 kg 76.5 kg 76.2 kg Lab Results: Lab Results-Last 24 Hours 10/16/22 10/16/22 10/16/22 Range/Units 10:30 10:30 10:30 WBC 5.1 (4.0-10.5) x10^3/uL RBC 4.23 (4.1-5.4) x10^6/uL Hgb 12.6 (12.0-16.0) g/dL Hct 39.9 (35-47) % MCV 94.3 (78-100) fL MCH 29.8 (26-32) pg MCHC 31.6 L (32-36) g/dL RDW 13.6 (11.5-14.0) % Plt Count 227 (150-450) x10^3/uL MPV 11.1 H (7.5-11.0) fL Gran % 53.4 (36.0-66.0) % Immature Gran % (Auto) 0.4 (0.00-0.4) % Nucleat RBC Rel Count 0.0 (0.00-0.1) % Eos # (Auto) 0.40 (0-0.5) x10^3/uL Immature Gran # (Auto) 0.02 (0.00-0.03) x10^3u/L Absolute Lymphs (auto) 1.44 (1.0-4.6) x10^3/uL Absolute Monos (auto) 0.48 (0.0-1.3) x10^3/uL Absolute Nucleated RBC 0.00 (0.00-0.01) x10^3u/L Lymphocytes % 28.2 (24.0-44.0) % Monocytes % 9.4 (0.0-12.0) % Eosinophils % 7.8 H (0.00-5.0) % Basophils % 0.8 (0.0-0.4) % Absolute Granulocytes 2.72 (1.4-6.9) x10^3/uL Basophils # 0.04 (0-0.4) x10^3/uL Sodium 138 (137-145) mmol/L Potassium 3.3 L D (3.5-5.1) mmol/L Chloride 103 (98-107) mmol/L Carbon Dioxide 29 (22-30) mmol/L Anion Gap 9.6 (5-15) MEQ/L BUN 32 H (7-17) mg/dL Creatinine 1.20 H (0.52-1.04) mg/dL Estimated GFR 46.2 ML/MIN Glucose 191 H (74-106) mg/dL POC Glucometer (74 to 106) mg/dL Hemoglobin A1c 5.99 (4.5-6.0) % Calcium 8.5 (8.4-10.2) mg/dL Total Bilirubin 0.40 (0.2-1.3) mg/dL AST 65 H (14-36) U/L ALT 72 H (0-35) U/L Alkaline Phosphatase 83 (38-126) U/L NT-Pro-B Natriuret Pep 4900 H (0-1800) pg/mL Serum Total Protein 6.5 (6.3-8.2) g/dL Albumin 3.7 (3.5-5.0) g/dL 10/16/22 10/16/22 10/16/22 Range/Units 11:27 16:39 21:10 WBC (4.0-10.5) x10^3/uL RBC (4.1-5.4) x10^6/uL Hgb (12.0-16.0) g/dL Hct (35-47) % MCV (78-100) fL MCH (26-32) pg MCHC (32-36) g/dL RDW (11.5-14.0) % Plt Count (150-450) x10^3/uL MPV (7.5-11.0) fL Gran % (36.0-66.0) % Immature Gran % (Auto) (0.00-0.4) % Nucleat RBC Rel Count (0.00-0.1) % Eos # (Auto) (0-0.5) x10^3/uL Immature Gran # (Auto) (0.00-0.03) x10^3u/L Absolute Lymphs (auto) (1.0-4.6) x10^3/uL Absolute Monos (auto) (0.0-1.3) x10^3/uL Absolute Nucleated RBC (0.00-0.01) x10^3u/L Lymphocytes % (24.0-44.0) % Monocytes % (0.0-12.0) % Eosinophils % (0.00-5.0) % Basophils % (0.0-0.4) % Absolute Granulocytes (1.4-6.9) x10^3/uL Basophils # (0-0.4) x10^3/uL Sodium (137-145) mmol/L Potassium (3.5-5.1) mmol/L Chloride (98-107) mmol/L Carbon Dioxide (22-30) mmol/L Anion Gap (5-15) MEQ/L BUN (7-17) mg/dL Creatinine (0.52-1.04) mg/dL Estimated GFR ML/MIN Glucose (74-106) mg/dL POC Glucometer 231 H 122 H 144 H (74 to 106) mg/dL Hemoglobin A1c (4.5-6.0) % Calcium (8.4-10.2) mg/dL Total Bilirubin (0.2-1.3) mg/dL AST (14-36) U/L ALT (0-35) U/L Alkaline Phosphatase (38-126) U/L NT-Pro-B Natriuret Pep (0-1800) pg/mL Serum Total Protein (6.3-8.2) g/dL Albumin (3.5-5.0) g/dL 10/17/22 Range/Units 07:24 WBC (4.0-10.5) x10^3/uL RBC (4.1-5.4) x10^6/uL Hgb (12.0-16.0) g/dL Hct (35-47) % MCV (78-100) fL MCH (26-32) pg MCHC (32-36) g/dL RDW (11.5-14.0) % Plt Count (150-450) x10^3/uL MPV (7.5-11.0) fL Gran % (36.0-66.0) % Immature Gran % (Auto) (0.00-0.4) % Nucleat RBC Rel Count (0.00-0.1) % Eos # (Auto) (0-0.5) x10^3/uL Immature Gran # (Auto) (0.00-0.03) x10^3u/L Absolute Lymphs (auto) (1.0-4.6) x10^3/uL Absolute Monos (auto) (0.0-1.3) x10^3/uL Absolute Nucleated RBC (0.00-0.01) x10^3u/L Lymphocytes % (24.0-44.0) % Monocytes % (0.0-12.0) % Eosinophils % (0.00-5.0) % Basophils % (0.0-0.4) % Absolute Granulocytes (1.4-6.9) x10^3/uL Basophils # (0-0.4) x10^3/uL Sodium (137-145) mmol/L Potassium (3.5-5.1) mmol/L Chloride (98-107) mmol/L Carbon Dioxide (22-30) mmol/L Anion Gap (5-15) MEQ/L BUN (7-17) mg/dL Creatinine (0.52-1.04) mg/dL Estimated GFR ML/MIN Glucose (74-106) mg/dL POC Glucometer 111 H (74 to 106) mg/dL Hemoglobin A1c (4.5-6.0) % Calcium (8.4-10.2) mg/dL Total Bilirubin (0.2-1.3) mg/dL AST (14-36) U/L ALT (0-35) U/L Alkaline Phosphatase (38-126) U/L NT-Pro-B Natriuret Pep (0-1800) pg/mL Serum Total Protein (6.3-8.2) g/dL Albumin (3.5-5.0) g/dL Radiology Exams: Radiology Procedures Category Date Time Status ECHO W/2D AND DOPPLER [US] Routine Exams 10/15/22 20:44 Draft Multi-Disciplinary Progress Notes: Multi-Disciplinary Progress Notes 10/16/22 11:47 Case Management Note by Tammie Dorsey S/W PATIENT- NO CHANGE IN DC PLANS AT THIS TIME. SHE PLANS TO RETURN HOME TO HER PLF AT TIME OF DC Initialized on 10/16/22 11:47 - END OF NOTE Assessment/Plan (1) Atrial fibrillation Current Visit: Yes Status: Acute Qualifiers: Atrial fibrillation type: unspecified Qualified Code(s): I48.91 - Unspecified atrial fibrillation Assessment & Plan: Dr Vann consulted by phone advises meds and will follow outpatient . Code(s): I48.91 - UNSPECIFIED ATRIAL FIBRILLATION (2) CHF (congestive heart failure) Current Visit: Yes Status: Acute Qualifiers: Heart failure type: unspecified Assessment & Plan: ECHO read by Dr Vann CHF due to valvular dz mitral and aortic Code(s): I50.9 - HEART FAILURE, UNSPECIFIED (3) Valvular heart disease Current Visit: Yes Status: Chronic Assessment & Plan: mitral and aortic- see ECHO (preliminary read reviewed with Dr Vann)
[2022-10-17 09:01] LABS: ANION GAP 9.4 MEQ/L (5-15); Calcium 8.9 mg/dL (8.4-10.2); Creatinine 1 1.23 mg/dL (0.52-1.04); EST GLOMERULAR FILTRATION RATE 44.9 ML/MIN; Potassium 5.2 mmol/L (3.5-5.1)
[2022-10-17] MEDS ORDERED: Lopressor 25MG Tab PO SCH (10:00)
[2022-10-17] MEDS: SYNTHROID 100 MCG PO SCH (11:13)
[2022-10-17] MEDS: Prozac 20 MG PO SCH (11:14)
[2022-10-17] MEDS: Ditropan 5 MG PO SCH (11:14)
[2022-10-17] MEDS: ENOXAPARIN SODIUM SQ SCH (11:14)
[2022-10-17] MEDS: Cozaar 50 MG PO SCH (11:14)
[2022-10-17] MEDS: HOLD METFORMIN PRODUCTS FOR 48 HOURS MC SCH (11:15)
[2022-10-17 12:09] VITALS: BP 91/58; PULSE 88
--- NOTE | 2022-10-17 13:00 | PCM.DCORD ---
- Discharge Disposition: Home, Self-Care Condition: Stable Prescriptions: New Apixaban [Eliquis 5 mg Tablet] 5 mg PO BID #60 tablet Losartan Potassium 25 mg PO DAILY #30 tablet Potassium Chloride 10 meq PO UD #14 tablet Continue Trazodone HCl 50 mg [Desyrel 50 mg] 50 mg PO HS Metformin HCl 500 mg [Glucophage 500 MG] 500 mg PO BID Lovastatin 40 mg PO HS Levothyroxine Sodium 100 mcg PO DAILY Fluoxetine HCl 20 mg PO DAILY Oxybutynin Chloride 5 mg [Ditropan 5 MG] 5 mg PO BID Cetirizine HCl [Zyrtec] 10 mg PO HS Discontinued Losartan Potassium 50 mg PO DAILY Additional Instructions: appt with Salesperson Hosiery Dr Vann to manage heart failure medications and discuss ECHO results Follow up with: KRISTIN BAKER [Primary Care Provider] -
== END 2022-10-17 14:10 | disposition home or self-care (01) ==
LOC: ED 14:51 → MED SURG 21:19
PROVIDERS: ADMIT Family Medicine; ATTEND Family Medicine
DX: I48.91 Unspecified atrial fibrillation (principal); I50.9 Heart failure, unspecified; R77.8 Other specified abnormalities of plasma proteins; E11.9 Type 2 diabetes mellitus without complications; I25.10 Atherosclerotic heart disease of native coronary artery without angina pectoris; I35.9 Nonrheumatic aortic valve disorder, unspecified; E03.9 Hypothyroidism, unspecified; Z95.1 Presence of aortocoronary bypass graft; Z79.01 Long term (current) use of anticoagulants; Z79.899 Other long term (current) drug therapy; Z20.828 Contact with and (suspected) exposure to other viral communicable diseases
CPT/HCPCS: 0241U; 36000; 36415; 71045; 71260; 80048; 80053; 81001; 82947; 83036; 83605; 83880; 84443; 84484; 85025; 85027; 85379; 85610; 85730; 93005; 93306; 96374; 97161; 99285; 99291; 93268; J1650; J1940; A9270-GY; G0378

== ENCOUNTER 2023-05-09 14:28 | Emergency (ER) | payer MEDICARE ==
[2023-05-09 14:39] VITALS: BP 91/51; PULSE 68; RESP 18; TEMP 97.7; O2SAT 95
--- NOTE | 2023-05-09 14:45 | ERPHSYRPT ---
- History of Present Illness Time Seen by Provider: 05/09/23 14:44 Source: patient, family Exam Limitations: no limitations Patient Subjective Stated Complaint: pt here for pain to left foot since saturday, no injury noted, Triage Nursing Assessment: pt alert, resp easy, skin w/d/p. arrived per wc, no swelling noted , has strong pedal pulse Physician History: This is a 77-year-old white female patient who presents with severe dorsal aspect left foot pain since the Saturday prior to arrival. She denies any type of injury. Patient describes the pain as a burning numbness. She states occasionally the pain will shoot proximally. It is not present on the right side only on the left. She states that she has had this in the past but it usually would resolve within 1 to 2 days. However this has been present for 3 to 4 days. Patient has a history of CHF, anxiety, diabetes, hypothyroidism and hyperlipidemia. Patient is on Eliquis. Patient denies chest pain. Patient denies shortness of breath. Method of Injury: other (No injury) Occurred: days ago (3-4) Quality: intermittent, burning, other (Numbness dorsal aspect left foot) Severity of Pain-Max: mild (To moderate) Severity of Pain-Current: mild (To moderate) Lower Extremities Pain: foot: left (Dorsal aspect) Modifying Factors: Improves With: nothing Associated Symptoms: none Allergies/Adverse Reactions: No Known Drug Allergies Allergy (Verified 05/09/23 14:31) Home Medications: Fluoxetine HCl 20 mg PO DAILY 07/28/20 [History] Levothyroxine Sodium 100 mcg PO DAILY 07/28/20 [History] Lovastatin 40 mg PO HS 07/28/20 [History] Metformin HCl 500 mg [Glucophage 500 MG] 500 mg PO BID 07/28/20 [History] Trazodone HCl 50 mg [Desyrel 50 mg] 50 mg PO HS 07/28/20 [History] Oxybutynin Chloride 5 mg [Ditropan 5 MG] 5 mg PO BID 07/29/20 [History] Cetirizine HCl [Zyrtec] 10 mg PO HS 08/16/20 [History] Dapagliflozin Propanediol [Farxiga] 1 ea DAILY 05/09/23 [History] Digoxin 0.125 mg Tablet [Lanoxin 0.125MG TABLET] 0.125 mg PO DAILY 05/09/23 [History] Sacubitril/Valsartan [Entresto 24 mg-26 mg Tablet] 1 ea BID 05/09/23 [History] Spironolactone 25 mg [Aldactone 25 MG] 25 mg PO DAILY 05/09/23 [History] Hx Tetanus, Diphtheria Vaccination/Date Given: No Hx Influenza Vaccination/Date Given: Yes Hx Pneumococcal Vaccination/Date Given: No Immunizations Up to Date: Yes Travel Risk - International Travel Have you traveled outside of the country in past 3 weeks: No - Coronavirus Screening Are you exhibiting any of the following symptoms?: No Close contact with a COVID-19 positive Pt in past 14-21 Days: No - Vaccine Status Have you recieved a Covid-19 vaccination: Yes Procurement Officer: Moderna - Vaccination Dates Date of 2cond Vaccination (if applicable): na - Review of Systems Constitutional: No Symptoms Eyes: No Symptoms Ears, Nose, & Throat: No Symptoms Respiratory: No Symptoms Cardiac: No Symptoms Abdominal/Gastrointestinal: No Symptoms Genitourinary Symptoms: No Symptoms Musculoskeletal: Other (Pain dorsal aspect left foot) Skin: Other (Just touching the skin on the dorsal aspect of left foot brings burning pain) Neurological: No Symptoms Psychological: No Symptoms Endocrine: No Symptoms Hematologic/Lymphatic: No Symptoms Immunological/Allergic: No Symptoms All Other Systems: Reviewed and Negative - Past Medical History Pertinent Past Medical History: Yes Neurological History: No Pertinent History ENT History: No Pertinent History Cardiac History: High Cholesterol, Myocardial Infarction ([place]) Respiratory History: No Pertinent History Endocrine Medical History: Diabetes Type II, Hypothyroidism Musculoskeletal History: Arthritis GI Medical History: No Pertinent History History: No Pertinent History Psycho-Social History: Anxiety, Depression Female Reproductive Disorders: No Pertinent History - Past Surgical History Past Surgical History: Yes Neuro Surgical History: No Pertinent History Cardiac: CABG Respiratory: No Pertinent History Gastrointestinal: Appendectomy Genitourinary: No Pertinent History Musculoskeletal: Joint Replacement Female Surgical History: Hysterectomy, Tubal Ligation Other Surgical History: Right shoulder replacement and right knee replacement, ooperectomy (one ovary remains), Right rotator cuff repair, - Social History Smoking Status: Never smoker Exposure to second hand smoke: No Drug Use: none Patient Lives Alone: No Significant Family History: no pertinent family hx - Nursing Vital Signs Nursing Vital Signs: Initial Vital Signs Temperature 97.7 F 05/09/23 14:35 Pulse Rate 68 05/09/23 14:35 Respiratory Rate 18 05/09/23 14:35 Blood Pressure 91/51 05/09/23 14:35 O2 Sat by Pulse Oximetry 95 05/09/23 14:35 Pain Scale Pain Intensity 9 - Physical Exam General Appearance: no apparent distress, alert, anxiety Eyes, Ears, Nose, Throat Exam: normal ENT inspection, moist mucous membranes Neck Exam: normal inspection, non-tender, supple, full range of motion Cardiovascular/Respiratory Exam: chest non-tender, no respiratory distress Gastrointestinal/Abdominal Exam: non-tender Back Exam: normal inspection, normal range of motion, No CVA tenderness, No vertebral tenderness Hips Exam: bilateral: non-tender, normal inspection, normal range of motion, no evidence of injury Legs Exam: bilateral leg: non-tender, normal inspection, normal range of motion, no evidence of injury Ankle Exam: bilateral ankle: non-tender, normal inspection, normal range of motion, no evidence of injury Foot Exam: right foot: non-tender, pain (Dorsal aspect left), bilateral foot: normal inspection, normal range of motion, no evidence of injury Neuro/Tendon Exam: normal motor functions, normal tendon functions, responds to pain, no evidence tendon injury Mental Status Exam: alert, oriented x 3, cooperative Skin Exam: normal color, warm, dry SpO2 Interpretation: normal SpO2: 95 O2 Delivery: Room Air - Course Nursing assessment & vital signs reviewed: Yes Ordered Tests: Active Orders 24 hr Category Date Time Status ANKLE (3 VIEWS) Stat Exams 05/09/23 15:05 Completed FOOT (MINIMUM 3 VIEWS) Stat Exams 05/09/23 15:05 Completed D-DIMER QUANTITATIVE Stat Lab 05/09/23 15:32 Completed Medication Summary Discontinued Medications Generic Name Dose Route Start Last Admin Trade Name Freq PRN Reason Stop Dose Admin Oxycodone/Acetaminophen 1 tab 05/09/23 16:12 05/09/23 16:19 Oxycodone Hcl/Apap 5 Mg/325 Mg Tablet PO 05/09/23 16:13 1 tab STAT STA Administration Oxycodone/Acetaminophen Confirm 05/09/23 16:18 Oxycodone Hcl/Apap 5 Mg/325 Mg Tablet Administered 05/09/23 16:19 Dose 1 tab .ROUTE .STK-MED ONE Lab/Rad Data: Laboratory Results 05/09/23 Range/Units 15:32 D-Dimer < 0.19 (0.0-0.50) mg/L - Progress Progress: unchanged Progress Note: 05/09/23 16:12 X-ray of the left foot was interpreted by me and there is no evidence of any acute fracture or dislocation. X-ray of the left ankle was interpreted by me and there is no evidence of any acute fracture or dislocation. This patient's medical issue is 1 of low complexity. The level complexity and the work-up performed is based on review of the patient's past medical history, review of the patient's medication list, review of the patient's drug allergies, history present illness and physical findings on examination. The work-up in this patient includes obtaining a D-dimer level which I interpreted. It is a normal study. I also interpreted the x-rays and there is no evidence of any acute fracture or dislocations. This patient we are going to have her stop her trazodone at night and use amitriptyline 25 mg orally. I will write for 5 days of that medication. She is also to use lidocaine cream [id number] and apply it to the area of pain that she is experiencing. She is also to call her primary care provider tomorrow morning to make arrangements for further evaluation and management. Counseled pt/family regarding: lab results, diagnosis, need for follow-up, rad results Medical Desision Making - Independent Historian Additional History obtained from: Spouse (Independent history obtained from the spouse) - Diagnostic Testing Diagnostic test were ordered, analyzed, and reviewed by me: Yes Radiological Interpretation: Interpreted by me - Risk of complications The pt has a mod risk of morbidity or mortality based on: Need for prescription drug management - Departure Departure Disposition: Home Clinical Impression: Peripheral neuropathy Condition: Stable Critical Care Time: No Referrals: KRISTIN BAKER [Primary Care Provider] - Follow up/PCP as directed Additional Instructions: Stop your trazodone while taking amitriptyline. Use [id number] lidocaine cream. Apply to area of tenderness on the left foot as directed on the package. Call your primary care provider tomorrow morning to make arranges for follow-up appointment and further management. Prescriptions: Amitriptyline HCl 25 mg [Amitriptyline 25 mg Tablet] 25 mg PO QHS #5 tablet
[2023-05-09] MEDS ORDERED: PERCOCET TABLET 5/325MG PO STA (16:12)
--- NOTE | 2023-05-09 16:17 | XRAY ---
CLINICAL HISTORY:Left foot and ankle pain COMPARISON:None. TECHNIQUE:X-ray of the left foot in AP, oblique and lateral views. FINDINGS: Reduced bone mineral density noted. A radiological examination of the foot demonstrates no lytic or sclerotic bone lesion. No definite fracture is visible. The cortical margins of the osseous structures are within normal limits. Normal metatarsophalangeal and interphalangeal joint spaces. Articular margins are intact. No focal abnormality was seen in the great toe. Soft tissues appear unremarkable. IMPRESSION: No acute osseous abnormality was seen in the foot. (Disclaimer: "A subtle bone abnormality or fracture may not be readily apparent on x-rays, thus clinical correlation and further imaging including follow-up CT, MRI, or follow-up x-rays are advised as needed"). Electronically Signed by: Mandy Majano MD. (05/09/2023 15:15:38 ORDER EXPEDITER)
[2023-05-09] MEDS ORDERED: PERCOCET TABLET 5/325MG ONE (16:18)
--- NOTE | 2023-05-09 16:21 | XRAY ---
CLINICAL HISTORY:Left foot and ankle pain COMPARISON:None. TECHNIQUE:X-ray of the left ankle in AP, lateral and oblique views. FINDINGS: Large plantar and dorsal calcaneal bony spurs. Reduced bone density. No fracture or other bony abnormality was seen. Ankle joint space is preserved. Soft tissue appears unremarkable. Vascular calcifications noted. IMPRESSION: 1. Large plantar and dorsal calcaneal bony spurs. 2. Reduced bone density. 3. No acute findings. (Disclaimer: "A subtle bone abnormality or fracture may not be readily apparent on x-rays, thus clinical correlation and further imaging including follow-up CT, MRI, or follow-up x-rays are advised as needed"). Electronically Signed by: Mandy Majano MD. (05/09/2023 15:20:52 SHEET METAL INSTALLER)
== END 2023-05-09 16:44 | disposition home or self-care (01) ==
LOC: ED 14:28
DX: E11.42 Type 2 diabetes mellitus with diabetic polyneuropathy (principal); M79.672 Pain in left foot; E78.5 Hyperlipidemia, unspecified; Z79.01 Long term (current) use of anticoagulants; Z79.84 Long term (current) use of oral hypoglycemic drugs
CPT/HCPCS: 36415; 73610; 73630; 85379; 99283; A9270-GY

== ENCOUNTER 2024-07-18 19:14 | Inpatient (IN) | payer MEDICARE ==
--- NOTE | 2024-07-18 19:41 | ERPHSYRPT ---
- History of Present Illness Time Seen by Provider: 07/18/24 19:40 Source: patient Exam Limitations: no limitations Patient Subjective Stated Complaint: c/o of cough Triage Nursing Assessment: Pt brought to ED by with complaint of excessive coughing. Patient denies pain at this time but states she has 8/10 pain in her right side when she coughs. Patient is coughing up green sputum and stated that sometimes her sputum with have red streaks in it. few cackles heard in lower lobes bilaterally. Patient is 96% on room air, hypotensive, gait steady, skin w/n/d, pt doesn't appear to be in any distress at this time. Physician History: The patient, with a history of congestive heart failure, atrial fibrillation, a nd difficulty swallowing, presents with a week-long history of a productive cough. The cough produces green sputum with bloody streaks. The patient denies fever but reports shortness of breath with exertion. The cough is worse when lying flat, leading to the patient sleeping in a recliner for the past two nights. In addition to the cough, the patient reports difficulty swallowing, with a sensation of food getting stuck. She denies any leg swelling. The patient has been taking Robitussin for the cough without significant relief. The patient's daily medications include Lasix 20mg, Zyrtec or Benadryl at night, and Eliquis for atrial fibrillation. The patient also reports a sore throat radiating to the ears. She denies any facial pain or earache. The patient has a history of coronary artery bypass surgery and has been diagnosed with congestive heart failure. She also reports a trial of Jardiance, which was discontinued due to side effects of edginess and itchiness. The patient's blood pressure has been low for about a week and a half prior to the consultation. Timing/Duration: week(s) (1) Activities at Onset: rest Severity of Dyspnea-Max: none Severity of Dyspnea-Current: none Possible Cause: unknown cause Modifying Factors: Improves With: nothing, rest. Worsens With: activity, coughing, exertion Associated Symptoms: intermittent, cough, hemoptysis, productive cough, No chest pain/discomfort, No edema, No fever, No wheezing, No painful breathing Allergies/Adverse Reactions: No Known Drug Allergies Allergy (Verified 07/18/24 19:34) Home Medications: Fluoxetine HCl 20 mg PO DAILY 07/28/20 [History] Levothyroxine Sodium 112 mcg PO DAILY 07/28/20 [History] Metformin HCl 500 mg [Glucophage 500 MG] 500 mg PO BID 07/28/20 [History] Trazodone HCl 50 mg [Desyrel 50 mg] 50 mg PO HS 07/28/20 [History] Oxybutynin Chloride 5 mg [Ditropan 5 MG] 5 mg PO BID 07/29/20 [History] Cetirizine HCl [Zyrtec] 10 mg PO HS 08/16/20 [History] Dapagliflozin Propanediol [Farxiga] 1 ea PO DAILY 05/09/23 [History] Digoxin 0.125 mg Tablet [Lanoxin 0.125MG TABLET] 0.125 mg PO DAILY 05/09/23 [History] Sacubitril/Valsartan [Entresto 24 mg-26 mg Tablet] 1 ea BID 05/09/23 [History] Spironolactone 25 mg [Aldactone 25 MG] 25 mg PO DAILY 05/09/23 [History] Allopurinol 100 mg [Zyloprim 100 mg] 50 mg PO DAILY 07/18/24 [History] Ezetimibe 10 mg [Zetia 10 MG] 10 mg PO DAILY 07/18/24 [History] Furosemide 20 mg [Lasix 20 mg] 20 mg PO DAILY 07/18/24 [History] Metoprolol Tartrate 25 mg [Lopressor 25MG Tab] 25 mg PO DAILY 07/18/24 [History] Sacubitril/Valsartan [Entresto 24 mg-26 mg Tablet] 1 tab PO BID 07/18/24 [His tory] Vericiguat [Verquvo] 5 mg PO DAILY 07/18/24 [History] Hx Tetanus, Diphtheria Vaccination/Date Given: No Hx Influenza Vaccination/Date Given: No Hx Pneumococcal Vaccination/Date Given: No Travel Risk - International Travel Have you traveled outside of the country in past 3 weeks: No - Emerging Infectious Disease Are you exhibiting symptoms associated with any current EIDs: Yes Symptoms: Cough: New Onset - Review of Systems All Other Systems: Reviewed and Negative - Past Medical History Pertinent Past Medical History: Yes Neurological History: No Pertinent History ENT History: No Pertinent History Cardiac History: Arrhythmia, High Cholesterol, Myocardial Infarction ([place]) Respiratory History: No Pertinent History Endocrine Medical History: Diabetes Type II, Hypothyroidism Musculoskeletal History: Arthritis GI Medical History: No Pertinent History History: No Pertinent History Psycho-Social History: Anxiety, Depression Female Reproductive Disorders: No Pertinent History Other Medical History: A. fib. severe mitral valve regurgitation. - Past Surgical History Past Surgical History: Yes Neuro Surgical History: No Pertinent History Cardiac: CABG Respiratory: No Pertinent History Gastrointestinal: Appendectomy Genitourinary: No Pertinent History Musculoskeletal: Joint Replacement Female Surgical History: Hysterectomy, Tubal Ligation Other Surgical History: Right shoulder replacement and right knee replacement, ooperectomy (one ovary remains), Right rotator cuff repair, 3 bypasses Significant Family History: no pertinent family hx - Social History Smoking Status: Never smoker Exposure to second hand smoke: No Drug Use: none Patient Lives Alone: No - Social Determinants of Health Will the patient participate in the screening: Yes Do you worry about a steady place to live?: No Do you have any problems with any of the following?: No known problems In the past 12 months,have you had to go without utilities?: No Transportation Issues: No Has anyone in your support network made you feel unsafe?: No Have you or anyone in your house had to go without enough: No - Nursing Vital Signs Nursing Vital Signs: Initial Vital Signs Temperature 97.8 F 07/18/24 19:16 Pulse Rate 80 07/18/24 19:16 Respiratory Rate 18 07/18/24 19:16 Blood Pressure 98/55 07/18/24 19:16 O2 Sat by Pulse Oximetry 95 07/18/24 19:16 Pain Scale Pain Intensity 7 - Physical Exam General Appearance: no apparent distress, thin Eye Exam: PERRL/EOMI, eyes nml inspection Ears, Nose, Throat Exam: normal ENT inspection, normal pharynx, hearing decreased, pharyngeal erythema, No sinus pain/drainage, No tonsillar exudate Neck Exam: normal inspection, non-tender, supple, full range of motion Respiratory Exam: lungs clear, airway intact, diminished breath sounds, No respiratory distress Cardiovascular/Chest Exam: murmur, irregular Abdominal/Gastrointestinal Exam: soft, No tenderness Extremity Exam: non-tender, No swelling Neurologic Exam: alert, oriented x 3, cooperative Skin Exam: normal color, warm, dry SpO2 Interpretation: normal SpO2: 98 O2 Delivery: Room Air - Course Nursing assessment & vital signs reviewed: Yes - Radiology Exams Chest X-ray Interpretation: Interpreted by me, No Pneumothorax, Infiltrates (patchy b/l) Ordered Tests: Active Orders 24 hr Category Date Time Status Insulator Apprentice STAT Care 07/18/24 20:19 Active EKG-ER Only STAT Care 07/18/24 20:19 Active IV Insertion STAT Care 07/18/24 20:19 Active CHEST 2 VIEWS (PA AND LAT) Stat Exams 07/18/24 20:01 Taken BLOOD CULTURE Stat Lab 07/18/24 20:27 Received BNPII [NT PRO BNPII] Stat Lab 07/18/24 20:27 Completed CBC W DIFF Stat Lab 07/18/24 20:27 Completed CMP Stat Lab 07/18/24 20:27 Completed CULTURE,SPUTUM Stat Lab 07/18/24 21:18 Received Lactic Acid Stat Lab 07/18/24 20:20 Completed PROCALCITONIN Stat Lab 07/18/24 20:27 Completed Medication Summary Discontinued Medications Generic Name Dose Route Start Last Admin Trade Name Freq PRN Reason Stop Dose Admin Furosemide 40 mg 07/18/24 21:21 07/18/24 21:31 Furosemide 40 Mg/4 Ml Vial IV 07/18/24 21:22 40 mg STAT ONE Administration Furosemide Confirm 07/18/24 21:30 Furosemide 40 Mg/4 Ml Vial Administered 07/18/24 21:31 Dose 40 mg .ROUTE .STK-MED ONE Ceftriaxone Sodium 1 gm in 100 mls @ 200 mls/hr 07/18/24 20:11 07/18/24 20:50 Rocephin 1 Gm / 100 Ml Nacl IV 07/18/24 20:40 Infused STAT ONE Infusion Azithromycin 500 mg in 250 mls @ 250 mls/hr 07/18/24 20:11 07/18/24 22:04 Zithromax 500 Mg/ 250 Ml Nacl Premix IV 07/18/24 21:10 Infused STAT STA Infusion Sodium Chloride 1,000 mls @ 999 mls/hr 07/18/24 20:11 07/18/24 21:21 Sodium Chloride 0.9% 1000 Ml IV 07/18/24 21:11 Infused .Q1H1M STA Infusion Sodium Chloride Confirm 07/18/24 20:19 Sodium Chloride 0.9% 1000 Ml Administered 07/18/24 20:20 Dose 1,000 mls @ ud .ROUTE .STK-MED ONE Ceftriaxone Sodium Confirm 07/18/24 20:19 Rocephin 1 Gm / 100 Ml Nacl Administered 07/18/24 20:20 Dose 1 gm in 100 mls @ ud IV .STK-MED ONE Azithromycin Confirm 07/18/24 21:01 Zithromax 500 Mg/ 250 Ml Nacl Premix Administered 07/18/24 21:02 Dose 500 mg in 250 mls @ ud IV .STK-MED ONE Lab/Rad Data: Laboratory Result Diagrams 07/18/24 20:27 07/18/24 20:27 Laboratory Results 07/18/24 07/18/24 07/18/24 Range/Units 20:39 20:27 20:27 WBC (3.98-10.04) x10^3/uL RBC (3.93-5.22) x10^6/uL Hgb (11.2-15.7) g/dL Hct (34.1-44.9) % MCV (79.4-94.8) fL MCH (25.6-32.2) pg MCHC (32.2-35.5) g/dL RDW (11.7-14.4) % Plt Count (182-369) x10^3/uL MPV (9.4-12.3) fL Gran % (34.0-71.1) % Immature Gran % (Auto) (0.001-0.429) % Nucleat RBC Rel Count (0.00-0.2) % Eos # (Auto) (0.04-0.36) x10^3/uL Immature Gran # (Auto) (0.001-0.031) x10^3u/L Absolute Lymphs (auto) (1.18-3.74) x10^3/uL Absolute Monos (auto) (0.24-0.86) x10^3/uL Absolute Nucleated RBC (0.00-0.012) x10^3u/L Lymphocytes % (19.3-51.7) % Monocytes % (4.7-12.5) % Eosinophils % (0.7-5.8) % Basophils % (0.1-1.2) % Absolute Granulocytes (1.56-6.13) x10^3/uL Basophils # (0.01-0.08) x10^3/uL Sodium 143 (135-145) mmol/L Potassium 4.9 (3.5-5.1) mmol/L Chloride 108 H (98-107) mmol/L Carbon Dioxide 22 (22-30) mmol/L Anion Gap 18.7 H (5-15) MEQ/L BUN 42 H (7-17) mg/dL Creatinine 1.77 H (0.52-1.04) mg/dL Estimated GFR 28.9 ML/MIN Glucose 110 H (74-106) mg/dL Lactic Acid (0.4-2.0) Calcium 10.2 (8.4-10.2) mg/dL Total Bilirubin 0.70 (0.2-1.3) mg/dL AST 42 H (14-36) U/L ALT 19 (0-35) U/L Alkaline Phosphatase 95 (38-126) U/L NT-Pro-B Natriuret Pep 64844 (<300) pg/mL Serum Total Protein 7.5 (6.3-8.2) g/dL Albumin 4.1 (3.5-5.0) g/dL Procalcitonin 0.071 (0.030-0.080) ng/mL Digoxin 0.7 L (0.8-1.9) ng/mL Influenza Type A Ag (NEGATIVE) Influenza Type B Ag (NEGATIVE) RSV (PCR) (NEGATIVE) SARS-CoV-2 (PCR) (NEGATIVE) 07/18/24 07/18/24 07/18/24 Range/Units 20:27 20:25 20:20 WBC 7.9 (3.98-10.04) x10^3/uL RBC 4.27 (3.93-5.22) x10^6/uL Hgb 12.6 (11.2-15.7) g/dL Hct 38.6 (34.1-44.9) % MCV 90.4 (79.4-94.8) fL MCH 29.5 (25.6-32.2) pg MCHC 32.6 (32.2-35.5) g/dL RDW 14.4 (11.7-14.4) % Plt Count 236 (182-369) x10^3/uL MPV 11.2 (9.4-12.3) fL Gran % 68.0 (34.0-71.1) % Immature Gran % (Auto) 0.3 (0.001-0.429) % Nucleat RBC Rel Count 0.0 (0.00-0.2) % Eos # (Auto) 0.35 (0.04-0.36) x10^3/uL Immature Gran # (Auto) 0.02 (0.001-0.031) x10^3u/L Absolute Lymphs (auto) 1.28 (1.18-3.74) x10^3/uL Absolute Monos (auto) 0.82 (0.24-0.86) x10^3/uL Absolute Nucleated RBC 0.00 (0.00-0.012) x10^3u/L Lymphocytes % 16.3 L (19.3-51.7) % Monocytes % 10.4 (4.7-12.5) % Eosinophils % 4.5 (0.7-5.8) % Basophils % 0.5 (0.1-1.2) % Absolute Granulocytes 5.35 (1.56-6.13) x10^3/uL Basophils # 0.04 (0.01-0.08) x10^3/uL Sodium (135-145) mmol/L Potassium (3.5-5.1) mmol/L Chloride (98-107) mmol/L Carbon Dioxide (22-30) mmol/L Anion Gap (5-15) MEQ/L BUN (7-17) mg/dL Creatinine (0.52-1.04) mg/dL Estimated GFR ML/MIN Glucose (74-106) mg/dL Lactic Acid 1.5 (0.4-2.0) Calcium (8.4-10.2) mg/dL Total Bilirubin (0.2-1.3) mg/dL AST (14-36) U/L ALT (0-35) U/L Alkaline Phosphatase (38-126) U/L NT-Pro-B Natriuret Pep (<300) pg/mL Serum Total Protein (6.3-8.2) g/dL Albumin (3.5-5.0) g/dL Procalcitonin (0.030-0.080) ng/mL Digoxin (0.8-1.9) ng/mL Influenza Type A Ag NEGATIVE (NEGATIVE) Influenza Type B Ag NEGATIVE (NEGATIVE) RSV (PCR) NEGATIVE (NEGATIVE) SARS-CoV-2 (PCR) NEGATIVE (NEGATIVE) - Progress Progress: unchanged Air Movement: good Progress Note: Patient presented with productive cough so sepsis screen was initiated. Her blood pressure has been low since arrival with a MAP in the 60s during her stay. Her white count was normal. Lactate 1.5. Procalcitonin within normal limits. She has an TATI with a creatinine of 1.77 with her baseline being 1.2. Her BNP was 15,500. Chest x-ray showed venous congestion consistent with CHF exacerbation. Patient was empirically treated with Rocephin and azithromycin. 1 L normal saline bolus was given as well as 40 mg IV Lasix. I discussed admission for CHF exacerbation with Dr. Mendez Londono at and accepted for observation at 2212. Blood Culture(s) Obtained: Yes Antibiotics given: Yes Discussed with Dr.: Other (Mendez Londono) Will see patient in: hospital (observation) Counseled pt/family regarding: lab results, diagnosis, need for follow-up, rad results Medical Desision Making - Discussion of managment Care discussed with:: hospitalist Reviewed:: Test results Agreed on:: place in obs Will see patient: in hospital - Diagnostic Testing Diagnostic test were ordered, analyzed, and reviewed by me: Yes Radiological Interpretation: Interpreted by me - Risk of complications The pt has a mod risk of morbidity or mortality based on: Need for prescription drug management The pt has a high risk of morbidity or mortality based on: Decision regarding hospitilization or escalation of hosp level of care - Departure Departure Disposition: Observation Clinical Impression: CHF exacerbation, Atrial fibrillation, Cough Condition: Good Critical Care Time: No Referrals: KRISTIN BAKER [Primary Care Provider] - Follow up/PCP as directed Instructions: Heart Failure, Cough, Adult (DC)
[2024-07-18] MEDS ORDERED: Sodium Chloride 0.9% 1000 ML 1,000 ML ONE (20:19)
[2024-07-18] MEDS ORDERED: ROCEPHIN 1 GM / 100 ML NaCl 1 GM/100 ML IVPB IV ONE (20:19)
[2024-07-18] MEDS: Sodium Chloride 0.9% 1000 ML 1,000 ML IV STA (20:20)
[2024-07-18] MEDS: ROCEPHIN 1 GM / 100 ML NaCl 1 GM/100 ML IVPB IV ONE (20:20)
[2024-07-18 20:30] LABS: Absolute Neutrophil Ct (ANC) 5.35 x10^3/uL (1.56-6.13); BASOPHIL % 0.5 % (0.1-1.2); Basophil (Absolute #) 0.04 x10^3/uL (0.01-0.08); Eosinophil % 4.5 % (0.7-5.8); Eosinophil (Absolute #) 0.35 x10^3/uL (0.04-0.36); Hematocrit 38.6 % (34.1-44.9); Hemoglobin 12.6 g/dL (11.2-15.7); IMMATURE GRAN # 0.02 x10^3u/L (0.001-0.031); IMMATURE GRAN % 0.3 % (0.001-0.429); Lymphocyte (Absolute #) 1.28 x10^3/uL (1.18-3.74); Lymphocytes % 16.3 % (19.3-51.7); Mean Cell Volume 90.4 fL (79.4-94.8); Mean Corpuscular Hemoglobin 29.5 pg (25.6-32.2); Mean Corpuscular Hgb Concent. 32.6 g/dL (32.2-35.5); Mean Platelet Volume 11.2 fL (9.4-12.3); Monocyte (Absolute #) 0.82 x10^3/uL (0.24-0.86); Monocytes % 10.4 % (4.7-12.5); Platelet Count 236 x10^3/uL (182-369); Red Blood Count 4.27 x10^6/uL (3.93-5.22); Red Cell Distribution Width 14.4 % (11.7-14.4); White Blood Count 7.9 x10^3/uL (3.98-10.04)
[2024-07-18 20:35] LABS: ALBUMIN 4.1 g/dL (3.5-5.0); ANION GAP 18.7 MEQ/L (5-15); BILIRUBIN,TOTAL 0.7 mg/dL (0.2-1.3); Calcium 10.2 mg/dL (8.4-10.2); Creatinine 1 1.77 mg/dL (0.52-1.04); EST GLOMERULAR FILTRATION RATE 28.9 ML/MIN; Potassium 4.9 mmol/L (3.5-5.1); Total Protein 7.5 g/dL (6.3-8.2)
[2024-07-18 20:53] LABS: PROCALCITONIN 0.071 ng/mL (0.030-0.080)
[2024-07-18] MEDS ORDERED: Zithromax 500 MG/ 250 ML NaCl Premix 500 MG/250 ML IVPB IV ONE (21:01)
[2024-07-18 21:03] LABS: INFLUENZA A NEGATIVE (NEGATIVE); INFLUENZA B NEGATIVE (NEGATIVE); RESPIRATORY SYNCTIAL VIRUS NEGATIVE (NEGATIVE); SARS-CoV-2 Xpert Express NEGATIVE (NEGATIVE)
[2024-07-18] MEDS: Zithromax 500 MG/ 250 ML NaCl Premix 500 MG/250 ML IVPB IV STA (21:04)
[2024-07-18] MEDS ORDERED: Lasix 40 MG/4 ML ONE (21:30)
[2024-07-18] MEDS: Lasix 40 MG/4 ML IV ONE (21:31)
[2024-07-18] MEDS: Robitussin-Dm Syrup PO ONE (22:35)
--- NOTE | 2024-07-18 23:41 | PCM.HP ---
History of Present Illness - Chief Complaint Chief Complaint: chf exacerbation History of Present Illness: is a 78 year old female with CHF, afib who presents with one week of productive cough. The cough produces green sputum with bloody streaks. The patient denies fever but reports shortness of breath with exertion. The cough is worse when lying flat, leading to the patient sleeping in a recliner for the past two nights. In addition to the cough, the patient reports difficulty sw allowing, with a sensation of food getting stuck. She denies any leg swelling. The patient has been taking Robitussin for the cough without significant relief. The patient's daily medications include Lasix 20mg, Zyrtec or Benadryl at night, and Eliquis for atrial fibrillation. The patient also reports a sore throat radiating to the ears. She denies any facial pain or earache. - Review of Systems Constitutional: No Fever, No Chills Eyes: No Symptoms Ears, Nose, & Throat: No Symptoms Respiratory: No Cough, No Short Of Breath Cardiac: No Chest Pain, No Edema, No Syncope Abdominal/Gastrointestinal: No Abdominal Pain, No Nausea, No Vomiting, No Diarrhea Genitourinary Symptoms: No Dysuria Musculoskeletal: No Back Pain, No Neck Pain Skin: No Rash Neurological: No Dizziness, No Focal Weakness, No Sensory Changes Psychological: No Symptoms Endocrine: No Symptoms Hematologic/Lymphatic: No Symptoms Immunological/Allergic: No Symptoms Medications & Allergies Home Medications: Home Medication List Fluoxetine HCl 20 mg PO DAILY 07/28/20 [History Confirmed 07/18/24] Levothyroxine Sodium 112 mcg PO DAILY 07/28/20 [History Confirmed 07/18/24] Metformin HCl 500 mg [Glucophage 500 MG] 500 mg PO BID 07/28/20 [History Confirmed 07/18/24] Trazodone HCl 50 mg [Desyrel 50 mg] 50 mg PO HS 07/28/20 [History Confirmed 07/18/24] Oxybutynin Chloride 5 mg [Ditropan 5 MG] 5 mg PO BID 07/29/20 [History Confirmed 07/18/24] Cetirizine HCl [Zyrtec] 10 mg PO HS 08/16/20 [History Confirmed 07/18/24] Apixaban [Eliquis 5 mg Tablet] 5 mg PO BID #60 tablet 10/17/22 [Rx Confirmed 07/18/24] Dapagliflozin Propanediol [Farxiga] 1 ea PO DAILY 05/09/23 [History Confirmed 07/18/24] Digoxin 0.125 mg Tablet [Lanoxin 0.125MG TABLET] mg PO DAILY 05/09/23 [History Confirmed 05/09/23] Spironolactone 25 mg [Aldactone 25 MG] 12.5 mg PO DAILY 05/09/23 [History Confirmed 07/18/24] Allopurinol 100 mg [Zyloprim 100 mg] 50 mg PO DAILY 07/18/24 [History Confirmed 07/18/24] Ezetimibe 10 mg [Zetia 10 MG] 10 mg PO DAILY 07/18/24 [History Confirmed 07/18/24] Furosemide 20 mg [Lasix 20 mg] 20 mg PO DAILY 07/18/24 [History Confirmed 07/18/24] Metoprolol Tartrate 25 mg [Lopressor 25MG Tab] 25 mg PO DAILY 07/18/24 [History Confirmed 07/18/24] Sacubitril/Valsartan [Entresto 24 mg-26 mg Tablet] 1 tab PO BID 07/18/24 [History Confirmed 07/18/24] Vericiguat [Verquvo] 5 mg PO DAILY 07/18/24 [History Confirmed 07/18/24] Allergies/Adverse Reactions: Allergies Allergy/AdvReac Type Severity Reaction Status Date / Time No Known Drug Allergies Allergy Verified 07/18/24 19:34 - Past Medical History Past Medical History: Yes Neurological History: No Pertinent History ENT History: No Pertinent History Cardiac History: Arrhythmia, High Cholesterol, Myocardial Infarction ([place]) Respiratory History: No Pertinent History, CHF Endocrine Medical History: Diabetes Type II, Hypothyroidism Musculoskelatal History: Arthritis GI Medical History: No Pertinent History History: Renal Disease Pyscho-Social History: Anxiety, Depression Reproductive Disorders: No Pertinent History Comment: A. fib. severe mitral valve regurgitation. - Past Surgical History Past Surgical History: Yes Neuro Surgical History: No Pertinent History Cardiac History: CABG Respiratory Surgery: No Pertinent History GI Surgical History: Appendectomy Genitourinary Surgical Hx: No Pertinent History Musculskeletal Surgical Hx: Joint Replacement Female Surgical History: Hysterectomy, Tubal Ligation Other Surgical History: Right shoulder replacement and right knee replacement, ooperectomy (one ovary remains), Right rotator cuff repair, CABG x 3 2003 Significant Family History: no pertinent family hx - Social History Smoking Status: Never smoker Exposure to second hand smoke: No Alcohol: None Drug Use: none - Social Determinants of Health Will the patient participate in the screening: Yes Do you worry about a steady place to live?: No Do you have any problems with any of the following?: No known problems In the past 12 months,have you had to go without utilities?: No Have you or anyone in your house had to go without enough: No Transportation Issues: No Has anyone in your support network made you feel unsafe?: No - Physical Exam Vital Signs: Vital Signs - 24 hr Temp Pulse Resp BP BP Pulse Ox 07/18/24 22:30 60 12 94/50 98 07/18/24 22:21 98 07/18/24 22:20 59 L 20 88/52 100 07/18/24 22:11 58 L 7 L 91/35 99 07/18/24 22:00 58 L 14 87/50 97 07/18/24 21:54 71 15 103/36 98 07/18/24 21:30 66 15 96/55 87 L 07/18/24 21:01 65 17 123/47 98 07/18/24 20:32 66 17 91/46 79 L 07/18/24 20:30 66 17 87/48 94 L 07/18/24 20:29 61 11 L 93/33 97 07/18/24 20:23 57 L 8 L 69/50 97 07/18/24 20:01 68 19 85/45 94 L 07/18/24 19:46 62 25 H 101/37 07/18/24 19:31 61 22 84/53 96 07/18/24 19:17 62 13 98/55 07/18/24 19:16 97.8 F 80 25 H 98/55 98 General Appearance: no apparent distress, alert Neurologic Exam: alert, oriented x 3, cooperative, normal mood/affect, nml cerebellar function, nml station & gait, sensation nml, No motor deficits Eye Exam: PERRL/EOMI, eyes nml inspection Ears, Nose, Throat Exam: normal ENT inspection, TMs normal, pharynx normal, moist mucous membranes Neck Exam: normal inspection, non-tender, supple, full range of motion Respiratory Exam: normal breath sounds, lungs clear, No respiratory distress Cardiovascular Exam: regular rate/rhythm, normal heart sounds, normal peripheral pulses Gastrointestinal/Abdomen Exam: soft, normal bowel sounds, No tenderness, No mass Back Exam: normal inspection, normal range of motion, No CVA tenderness, No vertebral tenderness Extremity Exam: normal inspection, normal range of motion, pelvis stable Skin Exam: normal color, warm, dry, No rash Lymphatic Exam: No adenopathy Results - Labs Lab/Micro Results: Lab Results-Last 24 Hours 07/18/24 07/18/24 07/18/24 Range/Units 20:20 20:25 20:27 WBC 7.9 (3.98-10.04) x10^3/uL RBC 4.27 (3.93-5.22) x10^6/uL Hgb 12.6 (11.2-15.7) g/dL Hct 38.6 (34.1-44.9) % MCV 90.4 (79.4-94.8) fL MCH 29.5 (25.6-32.2) pg MCHC 32.6 (32.2-35.5) g/dL RDW 14.4 (11.7-14.4) % Plt Count 236 (182-369) x10^3/uL MPV 11.2 (9.4-12.3) fL Gran % 68.0 (34.0-71.1) % Immature Gran % (Auto) 0.3 (0.001-0.429) % Nucleat RBC Rel Count 0.0 (0.00-0.2) % Eos # (Auto) 0.35 (0.04-0.36) x10^3/uL Immature Gran # (Auto) 0.02 (0.001-0.031) x10^3u/L Absolute Lymphs (auto) 1.28 (1.18-3.74) x10^3/uL Absolute Monos (auto) 0.82 (0.24-0.86) x10^3/uL Absolute Nucleated RBC 0.00 (0.00-0.012) x10^3u/L Lymphocytes % 16.3 L (19.3-51.7) % Monocytes % 10.4 (4.7-12.5) % Eosinophils % 4.5 (0.7-5.8) % Basophils % 0.5 (0.1-1.2) % Absolute Granulocytes 5.35 (1.56-6.13) x10^3/uL Basophils # 0.04 (0.01-0.08) x10^3/uL Sodium (135-145) mmol/L Potassium (3.5-5.1) mmol/L Chloride (98-107) mmol/L Carbon Dioxide (22-30) mmol/L Anion Gap (5-15) MEQ/L BUN (7-17) mg/dL Creatinine (0.52-1.04) mg/dL Estimated GFR ML/MIN Glucose (74-106) mg/dL Lactic Acid 1.5 (0.4-2.0) Calcium (8.4-10.2) mg/dL Total Bilirubin (0.2-1.3) mg/dL AST (14-36) U/L ALT (0-35) U/L Alkaline Phosphatase (38-126) U/L NT-Pro-B Natriuret Pep (<300) pg/mL Serum Total Protein (6.3-8.2) g/dL Albumin (3.5-5.0) g/dL Procalcitonin (0.030-0.080) ng/mL Digoxin (0.8-1.9) ng/mL Influenza Type A Ag NEGATIVE (NEGATIVE) Influenza Type B Ag NEGATIVE (NEGATIVE) RSV (PCR) NEGATIVE (NEGATIVE) SARS-CoV-2 (PCR) NEGATIVE (NEGATIVE) 07/18/24 07/18/24 07/18/24 Range/Units 20:27 20:27 20:39 WBC (3.98-10.04) x10^3/uL RBC (3.93-5.22) x10^6/uL Hgb (11.2-15.7) g/dL Hct (34.1-44.9) % MCV (79.4-94.8) fL MCH (25.6-32.2) pg MCHC (32.2-35.5) g/dL RDW (11.7-14.4) % Plt Count (182-369) x10^3/uL MPV (9.4-12.3) fL Gran % (34.0-71.1) % Immature Gran % (Auto) (0.001-0.429) % Nucleat RBC Rel Count (0.00-0.2) % Eos # (Auto) (0.04-0.36) x10^3/uL Immature Gran # (Auto) (0.001-0.031) x10^3u/L Absolute Lymphs (auto) (1.18-3.74) x10^3/uL Absolute Monos (auto) (0.24-0.86) x10^3/uL Absolute Nucleated RBC (0.00-0.012) x10^3u/L Lymphocytes % (19.3-51.7) % Monocytes % (4.7-12.5) % Eosinophils % (0.7-5.8) % Basophils % (0.1-1.2) % Absolute Granulocytes (1.56-6.13) x10^3/uL Basophils # (0.01-0.08) x10^3/uL Sodium 143 (135-145) mmol/L Potassium 4.9 (3.5-5.1) mmol/L Chloride 108 H (98-107) mmol/L Carbon Dioxide 22 (22-30) mmol/L Anion Gap 18.7 H (5-15) MEQ/L BUN 42 H (7-17) mg/dL Creatinine 1.77 H (0.52-1.04) mg/dL Estimated GFR 28.9 ML/MIN Glucose 110 H (74-106) mg/dL Lactic Acid (0.4-2.0) Calcium 10.2 (8.4-10.2) mg/dL Total Bilirubin 0.70 (0.2-1.3) mg/dL AST 42 H (14-36) U/L ALT 19 (0-35) U/L Alkaline Phosphatase 95 (38-126) U/L NT-Pro-B Natriuret Pep 16018 (<300) pg/mL Serum Total Protein 7.5 (6.3-8.2) g/dL Albumin 4.1 (3.5-5.0) g/dL Procalcitonin 0.071 (0.030-0.080) ng/mL Digoxin 0.7 L (0.8-1.9) ng/mL Influenza Type A Ag (NEGATIVE) Influenza Type B Ag (NEGATIVE) RSV (PCR) (NEGATIVE) SARS-CoV-2 (PCR) (NEGATIVE) - Radiology Impressions Radiology Exams & Impressions: Radiology Procedures Category Date Time Status CHEST 2 VIEWS (PA AND LAT) Stat Exams 07/18/24 20:01 Taken Assessment/Plan (1) CHF exacerbation Current Visit: Yes Status: Acute Assessment & Plan: 1. Got lasix in the ED with good relief, will hold off tonight 2. Continue home CHF meds 3. Likely can be discharged in the AM Code(s): I50.9 - HEART FAILURE, UNSPECIFIED Telemedicine Encounter - Telemedicine Encounter Telemedicine Encounter: "The entirety of this encounter was performed via Telemedicine" This visit was performed using real-time audio and video connection between my location and thepatients locationwith the assistance of a surrogateat the patients location. Written or verbal consent was obtained from the patient/guardian to perform this visit using[facility] center[facility]endagram[facility] technology. Any patient questions regarding the telemedicine interaction were answered.
[2024-07-19] MEDS: ENTRESTO 49 MG-51 MG TABLET PO SCH (00:10)
[2024-07-19] MEDS: Glucophage 500 MG PO SCH (00:10)
[2024-07-19] MEDS: ELIQUIS 2.5 MG TABLET PO SCH (00:10)
[2024-07-19] MEDS: CLARITIN 10 MG PO SCH (00:10)
[2024-07-19] MEDS: Ditropan 5 MG PO SCH (00:10)
[2024-07-19 05:30] LABS: Absolute Neutrophil Ct (ANC) 4.25 x10^3/uL (1.56-6.13); BASOPHIL % 0.6 % (0.1-1.2); Basophil (Absolute #) 0.04 x10^3/uL (0.01-0.08); Eosinophil % 5.6 % (0.7-5.8); Eosinophil (Absolute #) 0.37 x10^3/uL (0.04-0.36); Hematocrit 34.4 % (34.1-44.9); IMMATURE GRAN # 0.02 x10^3u/L (0.001-0.031); IMMATURE GRAN % 0.3 % (0.001-0.429); Lymphocyte (Absolute #) 1.23 x10^3/uL (1.18-3.74); Lymphocytes % 18.5 % (19.3-51.7); Mean Cell Volume 91.2 fL (79.4-94.8); Mean Corpuscular Hemoglobin 29.2 pg (25.6-32.2); Mean Platelet Volume 10.7 fL (9.4-12.3); Monocyte (Absolute #) 0.73 x10^3/uL (0.24-0.86); Platelet Count 182 x10^3/uL (182-369); Red Blood Count 3.77 x10^6/uL (3.93-5.22); Red Cell Distribution Width 14.5 % (11.7-14.4); White Blood Count 6.6 x10^3/uL (3.98-10.04)
[2024-07-19 05:51] LABS: ALBUMIN 3.4 g/dL (3.5-5.0); ANION GAP 13.5 MEQ/L (5-15); BILIRUBIN,TOTAL 0.6 mg/dL (0.2-1.3); Calcium 9.1 mg/dL (8.4-10.2); Creatinine 1 1.81 mg/dL (0.52-1.04); EST GLOMERULAR FILTRATION RATE 28.1 ML/MIN; Potassium 4.7 mmol/L (3.5-5.1); Total Protein 6.3 g/dL (6.3-8.2)
[2024-07-19] MEDS: Robitussin-Dm Syrup PO PRN (06:26)
--- NOTE | 2024-07-19 07:27 | XRAY ---
Indication: Short of breath. Comparison: October 14, 2022 Portable chest unchanged again hyperinflated with chronic lung markings and mild left infrahilar subsegmental atelectasis/scarring. Heart not enlarged again with CABG. Bony thorax intact again with osteopenia, degenerative changes, dextroscoliosis, and right shoulder arthroplasty. No new/acute findings.
[2024-07-19] MEDS ORDERED: MEDICATION INTERVENTION MC SCH (08:15)
--- NOTE | 2024-07-19 09:24 | PCM.NOTE ---
Date and Time: 07/19/24904 Subjective Assessment: 07/19/24 is a 78 year old female with PMHX of CHF, afib, hyperlipidemia, HI, TYpe II DM, hypothyroidism, OA, anxiety, and depression. She presented to the ER on 07/18/24 with one week of productive cough and hoarseness. The cough produced green sputum with bloody streaks. The patient denied fever but reports shortness of breath with exertion. The cough is worse when lying flat, leading to the patient sleeping in a recliner for the past two nights. In addition to the cough, the patient reports difficulty swallowing, with a sensation of food getting stuck. This has been ongoing for about a month but getting worse. She was eating bruneian toast this morning and feels her food is getting stuck again. Diet changed to soft. The patient has been taking Robitussin for the cough without significant relief. She was started on IV antibiotics in ER, PO antibiotics continued today for URI. CXR reviewed and non-concerning. IV lasix gave x1 in ER. Creat a bit up and may be related to this. She does not appear to be having a CHF exacerbation. She is room air 95%. General surgery consulted for possible EGD. She was not made NPO as she already ate breakfast, will make NPO after midnight. She states she has an appointment with her mosquito sprayer Saturday and would like to be mio to d/c before then to make the appointment. She denies CP, SOB, abd. pain, V/D. - Review of Systems Constitutional: No Fever, No Chills Eyes: No Symptoms Ears, Nose, & Throat: No Symptoms, Hoarse, Other (difficulty swallowing- feels like food stuck in throat/ chest) Respiratory: Cough (with greee sputum production), No Short Of Breath Cardiac: No Chest Pain, No Edema, No Syncope Abdominal/Gastrointestinal: No Abdominal Pain, No Nausea, No Vomiting, No Diarrhea Genitourinary Symptoms: No Dysuria Musculoskeletal: No Back Pain, No Neck Pain Skin: No Rash Neurological: No Dizziness, No Focal Weakness, No Sensory Changes Psychological: No Symptoms Endocrine: No Symptoms Hematologic/Lymphatic: No Symptoms Immunological/Allergic: No Symptoms Objective Exam General Appearance: no apparent distress, alert Neurologic Exam: alert, oriented x 3, cooperative, normal mood/affect, nml cerebellar function, sensation nml, No motor deficits Skin Exam: normal color, warm, dry Eye Exam: PERRL, EOMI, eyes nml inspection Ears, Nose, Throat Exam: normal ENT inspection, pharynx normal, moist mucous membranes Neck Exam: normal inspection, non-tender, supple, full range of motion Respiratory Exam: normal breath sounds, lungs clear, No respiratory distress Cardiovascular Exam: regular rate/rhythm, normal heart sounds Gastrointestinal/Abdomen Exam: soft, No tenderness, No mass Extremity Exam: normal inspection, normal range of motion Back Exam: normal inspection, normal range of motion, No CVA tenderness, No vertebral tenderness Pelvic Exam: deferred Rectal Exam: deferred Objective Data Vital Signs: Vital Signs - 24 hr Temp Pulse Resp BP BP Pulse Ox 07/19/24 07:28 97.8 F 65 16 120/56 95 07/19/24 04:35 89/48 07/19/24 04:00 97.4 F 69 16 85/50 95 07/19/24 00:00 97.3 F 65 16 101/52 96 07/18/24 23:08 97.3 F 65 16 101/52 96 07/18/24 22:30 60 12 94/50 98 07/18/24 22:21 98 07/18/24 22:20 59 L 20 88/52 100 07/18/24 22:11 58 L 7 L 91/35 99 07/18/24 22:00 58 L 14 87/50 97 07/18/24 21:54 71 15 103/36 98 07/18/24 21:30 66 15 96/55 87 L 07/18/24 21:01 65 17 123/47 98 07/18/24 20:32 66 17 91/46 79 L 07/18/24 20:30 66 17 87/48 94 L 07/18/24 20:29 61 11 L 93/33 97 07/18/24 20:23 57 L 8 L 69/50 97 07/18/24 20:01 68 19 85/45 94 L 07/18/24 19:46 62 25 H 101/37 07/18/24 19:31 61 22 84/53 96 07/18/24 19:17 62 13 98/55 07/18/24 19:16 97.8 F 80 25 H 98/55 98 Pain Assessment - Last Documented Pain Intensity 0 Intake and Output: Intake & Output 07/16/24 07/17/24 07/18/24 07/19/24 11:59 11:59 11:59 11:59 Intake Total 240 Balance 240 Weight 75.1 kg Lab Results: Lab Results-Last 24 Hours 07/18/24 07/18/24 07/18/24 Range/Units 20:20 20:25 20:27 WBC 7.9 (3.98-10.04) x10^3/uL RBC 4.27 (3.93-5.22) x10^6/uL Hgb 12.6 (11.2-15.7) g/dL Hct 38.6 (34.1-44.9) % MCV 90.4 (79.4-94.8) fL MCH 29.5 (25.6-32.2) pg MCHC 32.6 (32.2-35.5) g/dL RDW 14.4 (11.7-14.4) % Plt Count 236 (182-369) x10^3/uL MPV 11.2 (9.4-12.3) fL Gran % 68.0 (34.0-71.1) % Immature Gran % (Auto) 0.3 (0.001-0.429) % Nucleat RBC Rel Count 0.0 (0.00-0.2) % Eos # (Auto) 0.35 (0.04-0.36) x10^3/uL Immature Gran # (Auto) 0.02 (0.001-0.031) x10^3u/L Absolute Lymphs (auto) 1.28 (1.18-3.74) x10^3/uL Absolute Monos (auto) 0.82 (0.24-0.86) x10^3/uL Absolute Nucleated RBC 0.00 (0.00-0.012) x10^3u/L Lymphocytes % 16.3 L (19.3-51.7) % Monocytes % 10.4 (4.7-12.5) % Eosinophils % 4.5 (0.7-5.8) % Basophils % 0.5 (0.1-1.2) % Absolute Granulocytes 5.35 (1.56-6.13) x10^3/uL Basophils # 0.04 (0.01-0.08) x10^3/uL Sodium (135-145) mmol/L Potassium (3.5-5.1) mmol/L Chloride (98-107) mmol/L Carbon Dioxide (22-30) mmol/L Anion Gap (5-15) MEQ/L BUN (7-17) mg/dL Creatinine (0.52-1.04) mg/dL Estimated GFR ML/MIN Glucose (74-106) mg/dL Lactic Acid 1.5 (0.4-2.0) Calcium (8.4-10.2) mg/dL Total Bilirubin (0.2-1.3) mg/dL AST (14-36) U/L ALT (0-35) U/L Alkaline Phosphatase (38-126) U/L NT-Pro-B Natriuret Pep (<300) pg/mL Serum Total Protein (6.3-8.2) g/dL Albumin (3.5-5.0) g/dL Procalcitonin (0.030-0.080) ng/mL Digoxin (0.8-1.9) ng/mL Influenza Type A Ag NEGATIVE (NEGATIVE) Influenza Type B Ag NEGATIVE (NEGATIVE) RSV (PCR) NEGATIVE (NEGATIVE) SARS-CoV-2 (PCR) NEGATIVE (NEGATIVE) 07/18/24 07/18/24 07/18/24 Range/Units 20:27 20:27 20:39 WBC (3.98-10.04) x10^3/uL RBC (3.93-5.22) x10^6/uL Hgb (11.2-15.7) g/dL Hct (34.1-44.9) % MCV (79.4-94.8) fL MCH (25.6-32.2) pg MCHC (32.2-35.5) g/dL RDW (11.7-14.4) % Plt Count (182-369) x10^3/uL MPV (9.4-12.3) fL Gran % (34.0-71.1) % Immature Gran % (Auto) (0.001-0.429) % Nucleat RBC Rel Count (0.00-0.2) % Eos # (Auto) (0.04-0.36) x10^3/uL Immature Gran # (Auto) (0.001-0.031) x10^3u/L Absolute Lymphs (auto) (1.18-3.74) x10^3/uL Absolute Monos (auto) (0.24-0.86) x10^3/uL Absolute Nucleated RBC (0.00-0.012) x10^3u/L Lymphocytes % (19.3-51.7) % Monocytes % (4.7-12.5) % Eosinophils % (0.7-5.8) % Basophils % (0.1-1.2) % Absolute Granulocytes (1.56-6.13) x10^3/uL Basophils # (0.01-0.08) x10^3/uL Sodium 143 (135-145) mmol/L Potassium 4.9 (3.5-5.1) mmol/L Chloride 108 H (98-107) mmol/L Carbon Dioxide 22 (22-30) mmol/L Anion Gap 18.7 H (5-15) MEQ/L BUN 42 H (7-17) mg/dL Creatinine 1.77 H (0.52-1.04) mg/dL Estimated GFR 28.9 ML/MIN Glucose 110 H (74-106) mg/dL Lactic Acid (0.4-2.0) Calcium 10.2 (8.4-10.2) mg/dL Total Bilirubin 0.70 (0.2-1.3) mg/dL AST 42 H (14-36) U/L ALT 19 (0-35) U/L Alkaline Phosphatase 95 (38-126) U/L NT-Pro-B Natriuret Pep 03381 (<300) pg/mL Serum Total Protein 7.5 (6.3-8.2) g/dL Albumin 4.1 (3.5-5.0) g/dL Procalcitonin 0.071 (0.030-0.080) ng/mL Digoxin 0.7 L (0.8-1.9) ng/mL Influenza Type A Ag (NEGATIVE) Influenza Type B Ag (NEGATIVE) RSV (PCR) (NEGATIVE) SARS-CoV-2 (PCR) (NEGATIVE) 07/19/24 07/19/24 Range/Units 05:26 05:26 WBC 6.6 (3.98-10.04) x10^3/uL RBC 3.77 L (3.93-5.22) x10^6/uL Hgb 11.0 L (11.2-15.7) g/dL Hct 34.4 (34.1-44.9) % MCV 91.2 (79.4-94.8) fL MCH 29.2 (25.6-32.2) pg MCHC 32.0 L (32.2-35.5) g/dL RDW 14.5 H (11.7-14.4) % Plt Count 182 (182-369) x10^3/uL MPV 10.7 (9.4-12.3) fL Gran % 64.0 (34.0-71.1) % Immature Gran % (Auto) 0.3 (0.001-0.429) % Nucleat RBC Rel Count 0.0 (0.00-0.2) % Eos # (Auto) 0.37 H (0.04-0.36) x10^3/uL Immature Gran # (Auto) 0.02 (0.001-0.031) x10^3u/L Absolute Lymphs (auto) 1.23 (1.18-3.74) x10^3/uL Absolute Monos (auto) 0.73 (0.24-0.86) x10^3/uL Absolute Nucleated RBC 0.00 (0.00-0.012) x10^3u/L Lymphocytes % 18.5 L (19.3-51.7) % Monocytes % 11.0 (4.7-12.5) % Eosinophils % 5.6 (0.7-5.8) % Basophils % 0.6 (0.1-1.2) % Absolute Granulocytes 4.25 (1.56-6.13) x10^3/uL Basophils # 0.04 (0.01-0.08) x10^3/uL Sodium 141 (135-145) mmol/L Potassium 4.7 (3.5-5.1) mmol/L Chloride 108 H (98-107) mmol/L Carbon Dioxide 24 (22-30) mmol/L Anion Gap 13.5 (5-15) MEQ/L BUN 41 H (7-17) mg/dL Creatinine 1.81 H (0.52-1.04) mg/dL Estimated GFR 28.1 ML/MIN Glucose 136 H (74-106) mg/dL Lactic Acid (0.4-2.0) Calcium 9.1 (8.4-10.2) mg/dL Total Bilirubin 0.60 (0.2-1.3) mg/dL AST 54 H (14-36) U/L ALT 27 (0-35) U/L Alkaline Phosphatase 92 (38-126) U/L NT-Pro-B Natriuret Pep (<300) pg/mL Serum Total Protein 6.3 (6.3-8.2) g/dL Albumin 3.4 L (3.5-5.0) g/dL Procalcitonin (0.030-0.080) ng/mL Digoxin (0.8-1.9) ng/mL Influenza Type A Ag (NEGATIVE) Influenza Type B Ag (NEGATIVE) RSV (PCR) (NEGATIVE) SARS-CoV-2 (PCR) (NEGATIVE) Radiology Exams: Radiology Procedures Category Date Time Status CHEST 2 VIEWS (PA AND LAT) Stat Exams 07/18/24 20:01 Completed Assessment/Plan (1) URI (upper respiratory infection) Current Visit: Yes Status: Acute Assessment & Plan: - coughing up green sputum - Sputum culture- pending - CXR: Portable chest unchanged again hyperinflated with chronic lung markings and mild left infrahilar subsegmental atelectasis/scarring. Heart not enlarged again with CABG. Bony thorax intact again with osteopenia, degenerative changes, dextroscoliosis, and right shoulder arthroplasty. No new/acute findings. - Flu/COVID/RSV negative - BC X2 pending - RA 95% - no fever - Voice hoarse - Cough medication Code(s): J06.9 - ACUTE UPPER RESPIRATORY INFECTION, UNSPECIFIED (2) Cough Current Visit: Yes Status: Acute Assessment & Plan: - see above plan for URI Code(s): R05.9 - COUGH, UNSPECIFIED (3) Difficulty swallowing solids Current Visit: Yes Status: Acute Assessment & Plan: - Ongoing for 1 month and worsening - feel like food gets stuck in esophagus - General surgery consult for possible EGD - Diet changed to soft diet today, NPO after midnight - Protonix IV Code(s): R13.10 - DYSPHAGIA, UNSPECIFIED (4) TATI (acute kidney injury) Current Visit: Yes Status: Acute Assessment & Plan: - creat 1.81- Baseline 0.99- trend - Likely 2;2 IV lasix gave in ER last night - Hx CHF Code(s): N17.9 - ACUTE KIDNEY FAILURE, UNSPECIFIED (5) Type II diabetes mellitus Current Visit: Yes Status: Chronic Qualifiers: Diabetes mellitus medical terminologist insulin use: without medical terminologist use Assessment & Plan: - hold metformin - Accuchecks ac/hs, low dose s/s - A1C- pending (6) HTN (hypertension) Current Visit: Yes Status: Chronic Assessment & Plan: - Controlled- trend - Continue home meds Code(s): I10 - ESSENTIAL (PRIMARY) HYPERTENSION (7) Hypothyroidism Current Visit: Yes Status: Acute Assessment & Plan: - Continue synthroid - TSH pending Code(s): E03.9 - HYPOTHYROIDISM, UNSPECIFIED (8) Atrial fibrillation Current Visit: Yes Status: Chronic Qualifiers: Assessment & Plan: - Controlled - tele - Continue home meds - eliquis Code(s): I48.91 - UNSPECIFIED ATRIAL FIBRILLATION (9) CHF (congestive heart failure) Current Visit: No Status: Chronic Qualifiers: Heart failure type: unspecified Assessment & Plan: - not in acute exacerbcation - Follows Dr. Whitten and wants to d/c prior to appointment Saturday - Lasix 40 IV gave in ER yesterday - Denies SOB today, RA 95% - CXR reviewed - Echo 10/15/22 IMPRESSION: 1) GLOBAL LEFT VENTRICULAR HYPOKINESIA WITH A LEFT VENTRICULAR EJECTION FRACTION AROUND 35%. 2) SEVERE MITRAL REGURGITATION. 3) MODERATE AORTIC STENOSIS. 4) MILD TRICUSPID REGURGITATION. RIGHT VENTRICULAR SYSTOLIC PRESSURE OF 44 MM OF MERCURY. 5) MODERATE AORTIC REGURGITATION. 6) MILD PULMONIC INSUFFICIENCY. 7) LEFT VENTRICULAR HYPERTROPHY. 8) MODERATE TO SEVERE LEFT ATRIAL DILATATION. 9) MILDLY DILATED RIGHT SIDE CHAMBER. 10) MILD PULMONIC INSUFFICIENCY. 11) LEFT VENTRICLE DIASTOLIC DYSFUNCTION. VTE: Eliquis- held for possible EGD- SCD's PPI: Protonix Next of KIN: D/C plan: 1-2 days Code status: Full code Code(s): I50.9 - HEART FAILURE, UNSPECIFIED
[2024-07-19] MEDS ORDERED: SYNTHROID 100 MCG PO SCH (10:00)
[2024-07-19] MEDS ORDERED: NON-FORMULARY ITEM (Dapagliflozin Propanediol [Farxiga] 10 MG Tablet) PO SCH (10:00)
[2024-07-19] MEDS ORDERED: Ditropan 5 MG PO SCH (10:00)
[2024-07-19] MEDS ORDERED: NON-FORMULARY ITEM (Apixaban*** [Eliquis 5 Mg Tablet***] 5 MG Tablet) PO SCH (10:00)
[2024-07-19] MEDS ORDERED: NON-FORMULARY ITEM (Sacubitril/Valsartan [Entresto 24 Mg-26 Mg Tablet] 1 EACH Tablet) PO SCH (10:00)
[2024-07-19] MEDS ORDERED: CEFTIN 500 MG PO SCH (10:00)
[2024-07-19] MEDS ORDERED: Glucophage 500 MG PO SCH (10:00)
[2024-07-19] MEDS: Zetia 10 MG PO SCH (10:43)
[2024-07-19] MEDS: Lopressor 25MG Tab PO SCH (10:43)
[2024-07-19] MEDS: Aldactone 25 MG PO SCH (10:43)
[2024-07-19] MEDS: Prozac 20 MG PO SCH (10:44)
[2024-07-19] MEDS: LASIX 20 MG PO SCH (10:44)
[2024-07-19] MEDS: CEFTIN 500 MG PO SCH (10:44)
[2024-07-19] MEDS: ZYLOPRIM 100 MG PO SCH (10:44)
[2024-07-19] MEDS: PROTONIX 40 MG IV IV SCH (10:47)
[2024-07-19] MEDS: SYNTHROID 112 MCG PO SCH (10:48)
[2024-07-19] MEDS: HUMALOG SQ PRN (13:27)
[2024-07-19] MEDS: DESYREL 50 MG PO SCH (21:51)
[2024-07-19] MEDS ORDERED: NON-FORMULARY ITEM (Cetirizine Hcl [Zyrtec] 10 MG Tablet) PO SCH (22:00)
[2024-07-20] MEDS: Robitussin AC Syrup Unit Dose Cup PO PRN (02:14)
[2024-07-20 04:34] LABS: Hematocrit 35.6 % (34.1-44.9); Hemoglobin 11.7 g/dL (11.2-15.7); Mean Cell Volume 89.9 fL (79.4-94.8); Mean Corpuscular Hemoglobin 29.5 pg (25.6-32.2); Mean Corpuscular Hgb Concent. 32.9 g/dL (32.2-35.5); Mean Platelet Volume 11.3 fL (9.4-12.3); Platelet Count 218 x10^3/uL (182-369); Red Blood Count 3.96 x10^6/uL (3.93-5.22); Red Cell Distribution Width 14.5 % (11.7-14.4); White Blood Count 6.1 x10^3/uL (3.98-10.04)
[2024-07-20 05:00] LABS: ALBUMIN 3.4 g/dL (3.5-5.0); ANION GAP 15.5 MEQ/L (5-15); BILIRUBIN,TOTAL 0.6 mg/dL (0.2-1.3); Calcium 9.1 mg/dL (8.4-10.2); Creatinine 1 1.93 mg/dL (0.52-1.04); Potassium 4.4 mmol/L (3.5-5.1); Total Protein 6.5 g/dL (6.3-8.2)
--- NOTE | 2024-07-20 05:30 | PCM.DS ---
Discharge Summary Date of Admission: 07/18/24 22:36 Date of Discharge: 07/20/24 Admitting Physician: LIAM BLAKE MD Consults: Consults on Case 07/19/24 09:06 Consult Surgery ROUTINE Primary Care Provider: KRISTIN BAKER Allergies Allergies No Known Drug Allergies Allergy (Verified 07/18/24 19:34) Hospital Summary - Hospital Course Hospital Course: is a 78 year old female with PMHX of CHF, afib (on eliquis), hyperlipidemia, AL, TYpe II DM, hypothyroidism, OA, anxiety, and depression admitted 07/18/24 for URI and dysphagia after experiencing a one week history of a productive cough with green/bloody sputum , shortness of breath, and hoarseness. Patient also endorses a month history of progressive dysphasia with the sensation of food getting stuck. CXR with no acute findings. Labs with TATI - baseline creat around 1-1.2. Respiratory viral panel negative. Patient did recei ve IV lasix in the ED which may be contributing to her rise in creat. General surgery has been consulted for EGD for her dysphagia which will be completed as OP. IP treatment with ceftin. Discharge Note New Diagnosis: URI/UTI/TATI New Medications: Follow Up: cardiology as scheduled /PCP/surgery Results pending: ucult Outpatient testing to order:Repeat UA for treatment response Latest Assessment & Plan 1 URI -Respiratory viral panel negative -Supportive care with anti-pyretics, cough syrup, anti-emetics -At baseline RA -CXR with no acute findings -ceftin - patient with purulent sputum -Mucinex 2 Cough -see plan for URI 3 Difficulty swallowing solids -Surgery consulted for possible EGD- will complete as OP -Protonix 4 TATI - creat 1.81- Baseline 0.99- trend - Likely 2;2 IV lasix - Hx CHF- on entresto - avoid IVF-monitor renal/lytes daily -avoid nephrotoxic medications -consider holding spironolactone/lasix if no improvement 5 T2DM -SSI- low dose -Hold metformin -accuchecks ACHS -A1c 6.56 6 CHF - not in acute exacerbation - Follows Dr. Whitten and wants to d/c prior to appointment Saturday - Lasix 40 IV gave in ER - At baseline RA - CXR with no consolidation/effusions -Continue home meds entresto - Echo 10/15/22 IMPRESSION: 1) GLOBAL LEFT VENTRICULAR HYPOKINESIA WITH A LEFT VENTRICULAR EJECTION FRACTION AROUND 35%. 2) SEVERE MITRAL REGURGITATION. 3) MODERATE AORTIC STENOSIS. 4) MILD TRICUSPID REGURGITATION. RIGHT VENTRICULAR SYSTOLIC PRESSURE OF 44 MM OF MERCURY. 5) MODERATE AORTIC REGURGITATION. 6) MILD PULMONIC INSUFFICIENCY. 7) LEFT VENTRICULAR HYPERTROPHY. 8) MODERATE TO SEVERE LEFT ATRIAL DILATATION. 9) MILDLY DILATED RIGHT SIDE CHAMBER. 10) MILD PULMONIC INSUFFICIENCY. 11) LEFT VENTRICLE DIASTOLIC DYSFUNCTION. (7) HTN (hypertension) - Controlled - Continue home meds (8) Hypothyroidism - Continue synthroid - TSH pending (8) Atrial fibrillation - Controlled - tele - Continue home meds - eliquis on hold due to possible EGD VTE: Eliquis- held for possible EGD- SCD's PPI: Protonix Next of KIN: D/C plan: 1-2 days Code status: Full code I spent 35 minutes [id number] with the patient on the day of discharge performing discharge exam, discussing hospital stay and discharge instructions with patient and caregivers, preparation of discharge records, prescriptions & referral forms and addressing any questions/concerns the patient had as documented above. - Vitals & Intake/Output Vital Signs: Vital Signs Temperature 97.9 F 07/20/24 03:49 Pulse Rate 70 07/20/24 03:49 Respiratory Rate 22 07/20/24 03:49 Blood Pressure 129/53 07/20/24 03:49 O2 Sat by Pulse Oximetry 95 07/20/24 03:49 Intake & Output: Intake & Output 07/17/24 07/18/24 07/19/24 07/20/24 11:59 11:59 11:59 11:59 Intake Total 520 1220 Output Total 1 Balance 520 1219 Weight 75.1 kg - Lab Result Diagrams: 07/20/24 04:17 07/20/24 04:17 Lab Results-Last 24 Hrs: Lab Results-Last 24 Hours 07/19/24 07/19/24 07/19/24 Range/Units 05:10 05:26 05:26 WBC 6.6 (3.98-10.04) x10^3/uL RBC 3.77 L (3.93-5.22) x10^6/uL Hgb 11.0 L (11.2-15.7) g/dL Hct 34.4 (34.1-44.9) % MCV 91.2 (79.4-94.8) fL MCH 29.2 (25.6-32.2) pg MCHC 32.0 L (32.2-35.5) g/dL RDW 14.5 H (11.7-14.4) % Plt Count 182 (182-369) x10^3/uL MPV 10.7 (9.4-12.3) fL Gran % 64.0 (34.0-71.1) % Immature Gran % (Auto) 0.3 (0.001-0.429) % Nucleat RBC Rel Count 0.0 (0.00-0.2) % Eos # (Auto) 0.37 H (0.04-0.36) x10^3/uL Immature Gran # (Auto) 0.02 (0.001-0.031) x10^3u/L Absolute Lymphs (auto) 1.23 (1.18-3.74) x10^3/uL Absolute Monos (auto) 0.73 (0.24-0.86) x10^3/uL Absolute Nucleated RBC 0.00 (0.00-0.012) x10^3u/L Lymphocytes % 18.5 L (19.3-51.7) % Monocytes % 11.0 (4.7-12.5) % Eosinophils % 5.6 (0.7-5.8) % Basophils % 0.6 (0.1-1.2) % Absolute Granulocytes 4.25 (1.56-6.13) x10^3/uL Basophils # 0.04 (0.01-0.08) x10^3/uL Sodium 141 (135-145) mmol/L Potassium 4.7 (3.5-5.1) mmol/L Chloride 108 H (98-107) mmol/L Carbon Dioxide 24 (22-30) mmol/L Anion Gap 13.5 (5-15) MEQ/L BUN 41 H (7-17) mg/dL Creatinine 1.81 H (0.52-1.04) mg/dL Estimated GFR 28.1 ML/MIN Glucose 136 H (74-106) mg/dL POC Glucometer (74 to 106) mg/dL Hemoglobin A1c 6.56 H (4.5-6.0) % Calcium 9.1 (8.4-10.2) mg/dL Total Bilirubin 0.60 (0.2-1.3) mg/dL AST 54 H (14-36) U/L ALT 27 (0-35) U/L Alkaline Phosphatase 92 (38-126) U/L Serum Total Protein 6.3 (6.3-8.2) g/dL Albumin 3.4 L (3.5-5.0) g/dL 07/19/24 07/19/24 07/19/24 Range/Units 11:33 16:19 20:55 WBC (3.98-10.04) x10^3/uL RBC (3.93-5.22) x10^6/uL Hgb (11.2-15.7) g/dL Hct (34.1-44.9) % MCV (79.4-94.8) fL MCH (25.6-32.2) pg MCHC (32.2-35.5) g/dL RDW (11.7-14.4) % Plt Count (182-369) x10^3/uL MPV (9.4-12.3) fL Gran % (34.0-71.1) % Immature Gran % (Auto) (0.001-0.429) % Nucleat RBC Rel Count (0.00-0.2) % Eos # (Auto) (0.04-0.36) x10^3/uL Immature Gran # (Auto) (0.001-0.031) x10^3u/L Absolute Lymphs (auto) (1.18-3.74) x10^3/uL Absolute Monos (auto) (0.24-0.86) x10^3/uL Absolute Nucleated RBC (0.00-0.012) x10^3u/L Lymphocytes % (19.3-51.7) % Monocytes % (4.7-12.5) % Eosinophils % (0.7-5.8) % Basophils % (0.1-1.2) % Absolute Granulocytes (1.56-6.13) x10^3/uL Basophils # (0.01-0.08) x10^3/uL Sodium (135-145) mmol/L Potassium (3.5-5.1) mmol/L Chloride (98-107) mmol/L Carbon Dioxide (22-30) mmol/L Anion Gap (5-15) MEQ/L BUN (7-17) mg/dL Creatinine (0.52-1.04) mg/dL Estimated GFR ML/MIN Glucose (74-106) mg/dL POC Glucometer 236 H 78 133 H (74 to 106) mg/dL Hemoglobin A1c (4.5-6.0) % Calcium (8.4-10.2) mg/dL Total Bilirubin (0.2-1.3) mg/dL AST (14-36) U/L ALT (0-35) U/L Alkaline Phosphatase (38-126) U/L Serum Total Protein (6.3-8.2) g/dL Albumin (3.5-5.0) g/dL 07/20/24 07/20/24 Range/Units 04:17 04:17 WBC 6.1 (3.98-10.04) x10^3/uL RBC 3.96 (3.93-5.22) x10^6/uL Hgb 11.7 (11.2-15.7) g/dL Hct 35.6 (34.1-44.9) % MCV 89.9 (79.4-94.8) fL MCH 29.5 (25.6-32.2) pg MCHC 32.9 (32.2-35.5) g/dL RDW 14.5 H (11.7-14.4) % Plt Count 218 (182-369) x10^3/uL MPV 11.3 (9.4-12.3) fL Gran % (34.0-71.1) % Immature Gran % (Auto) (0.001-0.429) % Nucleat RBC Rel Count (0.00-0.2) % Eos # (Auto) (0.04-0.36) x10^3/uL Immature Gran # (Auto) (0.001-0.031) x10^3u/L Absolute Lymphs (auto) (1.18-3.74) x10^3/uL Absolute Monos (auto) (0.24-0.86) x10^3/uL Absolute Nucleated RBC (0.00-0.012) x10^3u/L Lymphocytes % (19.3-51.7) % Monocytes % (4.7-12.5) % Eosinophils % (0.7-5.8) % Basophils % (0.1-1.2) % Absolute Granulocytes (1.56-6.13) x10^3/uL Basophils # (0.01-0.08) x10^3/uL Sodium 140 (135-145) mmol/L Potassium 4.4 (3.5-5.1) mmol/L Chloride 106 (98-107) mmol/L Carbon Dioxide 23 (22-30) mmol/L Anion Gap 15.5 H (5-15) MEQ/L BUN 42 H (7-17) mg/dL Creatinine 1.93 H (0.52-1.04) mg/dL Estimated GFR 26.0 ML/MIN Glucose 115 H (74-106) mg/dL POC Glucometer (74 to 106) mg/dL Hemoglobin A1c (4.5-6.0) % Calcium 9.1 (8.4-10.2) mg/dL Total Bilirubin 0.60 (0.2-1.3) mg/dL AST 47 H (14-36) U/L ALT 26 (0-35) U/L Alkaline Phosphatase 85 (38-126) U/L Serum Total Protein 6.5 (6.3-8.2) g/dL Albumin 3.4 L (3.5-5.0) g/dL Micro Results-Entire Visit: Accuchecks Date 07/19/24 Date 07/19/24 Date 07/19/24 Time 21:00 Time 16:21 Time 11:51 - Radiology Exams Ordered Rad Exams-Entire Visit: Radiology Procedures Category Date Time Status CHEST 2 VIEWS (PA AND LAT) Stat Exams 07/18/24 20:01 Completed - Discharge Disposition: Home, Self-Care Condition: Good Prescriptions: No Action Trazodone HCl 50 mg [Desyrel 50 mg] 50 mg PO HS Metformin HCl 500 mg [Glucophage 500 MG] 500 mg PO BID Levothyroxine Sodium 112 mcg PO DAILY Fluoxetine HCl 20 mg PO DAILY Oxybutynin Chloride 5 mg [Ditropan 5 MG] 5 mg PO BID Cetirizine HCl [Zyrtec] 10 mg PO HS Apixaban [Eliquis 5 mg Tablet] 5 mg PO BID #60 tablet Digoxin 0.125 mg Tablet [Lanoxin 0.125MG TABLET] 0.0625 mg PO DAILY Dapagliflozin Propanediol [Farxiga] 1 ea PO DAILY Spironolactone 25 mg [Aldactone 25 MG] 12.5 mg PO DAILY Metoprolol Tartrate 25 mg [Lopressor 25MG Tab] 25 mg PO DAILY Allopurinol 100 mg [Zyloprim 100 mg] 50 mg PO DAILY Sacubitril/Valsartan [Entresto 24 mg-26 mg Tablet] 1 tab PO BID Ezetimibe 10 mg [Zetia 10 MG] 10 mg PO DAILY Furosemide 20 mg [Lasix 20 mg] 20 mg PO DAILY Vericiguat [Verquvo] 5 mg PO DAILY Follow up with: KRISTIN BAKER [Primary Care Provider] -
--- NOTE | 2024-07-20 05:36 | PCM.NOTE ---
Date and Time: 07/20/24 0531 Subjective Assessment: is a 78 year old female with PMHX of CHF, afib (on eliquis), hyperlipidemia, IN, TYpe II DM, hypothyroidism, OA, anxiety, and depression admitted 07/18/24 for URI and dysphagia after experiencing a one week history of a productive cough with green/bloody sputum , shortness of breath, and hoarsene ss. Patient also endorses a month history of progressive dysphasia with the sensation of food getting stuck. CXR with no acute findings. Labs with TATI - baseline creat around 1-1.2. Respiratory viral panel negative. Patient did receive IV lasix in the ED which may be contributing to her rise in creat. General surgery has been consulted for EGD for her dysphagia- will obtain as OP. IP treatment with ceftin for UTI - currently showing gram negative ID. 07/20/24: Met with patient bedside. Dyspnea and cough improved. Endorses cough remains productive with green sputum. Surgery consulted for EGD due to dysphagia - will obtain as OP. Discussed labs showing increase in creat. Patient is euvolemic. Will hold lasix/spironolactone/entresto today and continue fluids at 100ml/hr for 500mls. Urine with gram - ID -continue with ceftin until final result. No urinary symptoms. - Review of Systems Constitutional: No Symptoms Eyes: No Symptoms Ears, Nose, & Throat: No Symptoms Respiratory: Cough, Short Of Breath Cardiac: No Symptoms Abdominal/Gastrointestinal: No Symptoms Genitourinary Symptoms: No Symptoms Musculoskeletal: No Symptoms Skin: No Symptoms Neurological: No Symptoms Psychological: No Symptoms Endocrine: No Symptoms Hematologic/Lymphatic: No Symptoms Objective Exam General Appearance: no apparent distress Neurologic Exam: alert, oriented x 3, cooperative Skin Exam: normal color Eye Exam: PERRL Ears, Nose, Throat Exam: normal ENT inspection Neck Exam: normal inspection Respiratory Exam: normal breath sounds, lungs clear Cardiovascular Exam: irregular Gastrointestinal/Abdomen Exam: soft, normal bowel sounds Extremity Exam: normal inspection Back Exam: normal inspection Pelvic Exam: deferred Objective Data Vital Signs: Vital Signs - 24 hr Temp Pulse Resp BP BP Pulse Ox 07/20/24 03:49 97.9 F 70 22 129/53 95 07/19/24 20:00 98.1 F 86 19 108/65 95 07/19/24 16:47 111/52 07/19/24 15:56 98.0 F 62 16 87/47 94 L 07/19/24 11:51 97.6 F 62 16 88/51 93 L 07/19/24 07:28 97.8 F 65 16 120/56 95 Pain Assessment - Last Documented Pain Intensity 0 Intake and Output: Intake & Output 07/17/24 07/18/24 07/19/24 07/20/24 11:59 11:59 11:59 11:59 Intake Total 520 1220 Output Total 1 Balance 520 1219 Weight 75.1 kg Lab Results: Lab Results-Last 24 Hours 07/19/24 07/19/24 07/19/24 Range/Units 05:10 05:26 05:26 WBC 6.6 (3.98-10.04) x10^3/uL RBC 3.77 L (3.93-5.22) x10^6/uL Hgb 11.0 L (11.2-15.7) g/dL Hct 34.4 (34.1-44.9) % MCV 91.2 (79.4-94.8) fL MCH 29.2 (25.6-32.2) pg MCHC 32.0 L (32.2-35.5) g/dL RDW 14.5 H (11.7-14.4) % Plt Count 182 (182-369) x10^3/uL MPV 10.7 (9.4-12.3) fL Gran % 64.0 (34.0-71.1) % Immature Gran % (Auto) 0.3 (0.001-0.429) % Nucleat RBC Rel Count 0.0 (0.00-0.2) % Eos # (Auto) 0.37 H (0.04-0.36) x10^3/uL Immature Gran # (Auto) 0.02 (0.001-0.031) x10^3u/L Absolute Lymphs (auto) 1.23 (1.18-3.74) x10^3/uL Absolute Monos (auto) 0.73 (0.24-0.86) x10^3/uL Absolute Nucleated RBC 0.00 (0.00-0.012) x10^3u/L Lymphocytes % 18.5 L (19.3-51.7) % Monocytes % 11.0 (4.7-12.5) % Eosinophils % 5.6 (0.7-5.8) % Basophils % 0.6 (0.1-1.2) % Absolute Granulocytes 4.25 (1.56-6.13) x10^3/uL Basophils # 0.04 (0.01-0.08) x10^3/uL Sodium 141 (135-145) mmol/L Potassium 4.7 (3.5-5.1) mmol/L Chloride 108 H (98-107) mmol/L Carbon Dioxide 24 (22-30) mmol/L Anion Gap 13.5 (5-15) MEQ/L BUN 41 H (7-17) mg/dL Creatinine 1.81 H (0.52-1.04) mg/dL Estimated GFR 28.1 ML/MIN Glucose 136 H (74-106) mg/dL POC Glucometer (74 to 106) mg/dL Hemoglobin A1c 6.56 H (4.5-6.0) % Calcium 9.1 (8.4-10.2) mg/dL Total Bilirubin 0.60 (0.2-1.3) mg/dL AST 54 H (14-36) U/L ALT 27 (0-35) U/L Alkaline Phosphatase 92 (38-126) U/L Serum Total Protein 6.3 (6.3-8.2) g/dL Albumin 3.4 L (3.5-5.0) g/dL 07/19/24 07/19/24 07/19/24 Range/Units 11:33 16:19 20:55 WBC (3.98-10.04) x10^3/uL RBC (3.93-5.22) x10^6/uL Hgb (11.2-15.7) g/dL Hct (34.1-44.9) % MCV (79.4-94.8) fL MCH (25.6-32.2) pg MCHC (32.2-35.5) g/dL RDW (11.7-14.4) % Plt Count (182-369) x10^3/uL MPV (9.4-12.3) fL Gran % (34.0-71.1) % Immature Gran % (Auto) (0.001-0.429) % Nucleat RBC Rel Count (0.00-0.2) % Eos # (Auto) (0.04-0.36) x10^3/uL Immature Gran # (Auto) (0.001-0.031) x10^3u/L Absolute Lymphs (auto) (1.18-3.74) x10^3/uL Absolute Monos (auto) (0.24-0.86) x10^3/uL Absolute Nucleated RBC (0.00-0.012) x10^3u/L Lymphocytes % (19.3-51.7) % Monocytes % (4.7-12.5) % Eosinophils % (0.7-5.8) % Basophils % (0.1-1.2) % Absolute Granulocytes (1.56-6.13) x10^3/uL Basophils # (0.01-0.08) x10^3/uL Sodium (135-145) mmol/L Potassium (3.5-5.1) mmol/L Chloride (98-107) mmol/L Carbon Dioxide (22-30) mmol/L Anion Gap (5-15) MEQ/L BUN (7-17) mg/dL Creatinine (0.52-1.04) mg/dL Estimated GFR ML/MIN Glucose (74-106) mg/dL POC Glucometer 236 H 78 133 H (74 to 106) mg/dL Hemoglobin A1c (4.5-6.0) % Calcium (8.4-10.2) mg/dL Total Bilirubin (0.2-1.3) mg/dL AST (14-36) U/L ALT (0-35) U/L Alkaline Phosphatase (38-126) U/L Serum Total Protein (6.3-8.2) g/dL Albumin (3.5-5.0) g/dL 07/20/24 07/20/24 Range/Units 04:17 04:17 WBC 6.1 (3.98-10.04) x10^3/uL RBC 3.96 (3.93-5.22) x10^6/uL Hgb 11.7 (11.2-15.7) g/dL Hct 35.6 (34.1-44.9) % MCV 89.9 (79.4-94.8) fL MCH 29.5 (25.6-32.2) pg MCHC 32.9 (32.2-35.5) g/dL RDW 14.5 H (11.7-14.4) % Plt Count 218 (182-369) x10^3/uL MPV 11.3 (9.4-12.3) fL Gran % (34.0-71.1) % Immature Gran % (Auto) (0.001-0.429) % Nucleat RBC Rel Count (0.00-0.2) % Eos # (Auto) (0.04-0.36) x10^3/uL Immature Gran # (Auto) (0.001-0.031) x10^3u/L Absolute Lymphs (auto) (1.18-3.74) x10^3/uL Absolute Monos (auto) (0.24-0.86) x10^3/uL Absolute Nucleated RBC (0.00-0.012) x10^3u/L Lymphocytes % (19.3-51.7) % Monocytes % (4.7-12.5) % Eosinophils % (0.7-5.8) % Basophils % (0.1-1.2) % Absolute Granulocytes (1.56-6.13) x10^3/uL Basophils # (0.01-0.08) x10^3/uL Sodium 140 (135-145) mmol/L Potassium 4.4 (3.5-5.1) mmol/L Chloride 106 (98-107) mmol/L Carbon Dioxide 23 (22-30) mmol/L Anion Gap 15.5 H (5-15) MEQ/L BUN 42 H (7-17) mg/dL Creatinine 1.93 H (0.52-1.04) mg/dL Estimated GFR 26.0 ML/MIN Glucose 115 H (74-106) mg/dL POC Glucometer (74 to 106) mg/dL Hemoglobin A1c (4.5-6.0) % Calcium 9.1 (8.4-10.2) mg/dL Total Bilirubin 0.60 (0.2-1.3) mg/dL AST 47 H (14-36) U/L ALT 26 (0-35) U/L Alkaline Phosphatase 85 (38-126) U/L Serum Total Protein 6.5 (6.3-8.2) g/dL Albumin 3.4 L (3.5-5.0) g/dL Radiology Exams: Radiology Procedures Category Date Time Status CHEST 2 VIEWS (PA AND LAT) Stat Exams 07/18/24 20:01 Completed Assessment/Plan (1) TATI (acute kidney injury) Current Visit: Yes Status: Acute Assessment & Plan: - creat 1.93- Baseline 0.99- trend - Hx CHF- on entresto -IVF at 100ml/hr for 500ml -monitor renal/lytes daily -avoid nephrotoxic medications -hold spironolactone/lasix/entresto Code(s): N17.9 - ACUTE KIDNEY FAILURE, UNSPECIFIED (2) URI (upper respiratory infection) Current Visit: Yes Status: Acute Assessment & Plan: -Respiratory viral panel negative -Supportive care with anti-pyretics, cough syrup, anti-emetics -At baseline RA -CXR with no acute findings -ceftin - patient with purulent sputum -Mucinex Code(s): J06.9 - ACUTE UPPER RESPIRATORY INFECTION, UNSPECIFIED (3) CHF (congestive heart failure) Current Visit: Yes Status: Acute Assessment & Plan: - not in acute exacerbation -euvolemic on exam - Follows Dr. Whitten and wants to d/c prior to appointment Saturday - Lasix 40 IV gave in ER - At baseline RA - CXR with no consolidation/effusions -Continue home meds entresto - Echo 10/15/22 IMPRESSION: 1) GLOBAL LEFT VENTRICULAR HYPOKINESIA WITH A LEFT VENTRICULAR EJECTION FRACTION AROUND 35%. 2) SEVERE MITRAL REGURGITATION. 3) MODERATE AORTIC STENOSIS. 4) MILD TRICUSPID REGURGITATION. RIGHT VENTRICULAR SYSTOLIC PRESSURE OF 44 MM OF MERCURY. 5) MODERATE AORTIC REGURGITATION. 6) MILD PULMONIC INSUFFICIENCY. 7) LEFT VENTRICULAR HYPERTROPHY. 8) MODERATE TO SEVERE LEFT ATRIAL DILATATION. 9) MILDLY DILATED RIGHT SIDE CHAMBER. 10) MILD PULMONIC INSUFFICIENCY. 11) LEFT VENTRICLE DIASTOLIC DYSFUNCTION. Code(s): I50.9 - HEART FAILURE, UNSPECIFIED (4) Cough Current Visit: Yes Status: Acute Assessment & Plan: -see plan for URI Code(s): R05.9 - COUGH, UNSPECIFIED (5) Difficulty swallowing solids Current Visit: Yes Status: Acute Assessment & Plan: -Surgery consulted for possible EGD - they will complete this as op -Protonix Code(s): R13.10 - DYSPHAGIA, UNSPECIFIED (6) Hypothyroidism Current Visit: Yes Status: Acute Assessment & Plan: - Continue synthroid - TSH pending Code(s): E03.9 - HYPOTHYROIDISM, UNSPECIFIED (7) Atrial fibrillation Current Visit: Yes Status: Chronic Qualifiers: Assessment & Plan: - Controlled - tele - Continue home meds - eliquis Code(s): I48.91 - UNSPECIFIED ATRIAL FIBRILLATION (8) HTN (hypertension) Current Visit: Yes Status: Chronic Assessment & Plan: -stable continue home meds Code(s): I10 - ESSENTIAL (PRIMARY) HYPERTENSION (9) Type II diabetes mellitus Current Visit: Yes Status: Chronic Qualifiers: Diabetes mellitus longwall headgate operator insulin use: without longwall headgate operator use Assessment & Plan: -SSI- low dose -Hold metformin -accuchecks ACHS -A1c 6.56 VTE: Eliquis- PPI: Protonix Next of KIN: D/C plan: 1-2 days Code status: Full code
--- NOTE | 2024-07-20 08:56 | CONS ---
CHIEF COMPLAINT: Cough and dysphagia. REASON FOR CONSULTATION: Dysphagia. REFERRAL SOURCE: Hospitalist service. HISTORY OF PRESENT ILLNESS: This patient presents to the emergency department and admitted with a cough and shortness of breath. The cough has been going on for about 1 week. She also complains of significant dysphagia with solid foods that is intermittent and occasional, going on for the last month. She had no prior episodes of dysphagia before. 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 PAST SURGICAL HISTORY: Also includes hysterectomy, total knee, total shoulder, tubal. HOME MEDICATIONS: Reviewed. See MAR including Eliquis. FAMILY HISTORY: Noncontributory. SOCIAL HISTORY: Noncontributory. LAB DATA AND TESTS: Reviewed CBC, CMP. PHYSICAL EXAMINATION: GENERAL: No acute distress. HEENT: Sclerae anicteric. Extraocular motions intact. NECK: Supple. No JVD. CHEST: Persistent cough but otherwise nonlabored breathing. ABDOMEN: Soft, nontender. NEUROLOGIC: Awake, alert and oriented. PSYCHIATRIC: Appropriate mood and affect. RESULTS REVIEWED: CBC, CMP. Admission H and P. ASSESSMENT AND PLAN: Dysphagia. Discussed with the patient EGD with possible dilatation including risk of bleeding, perforation and/or anesthesia complication. The patient is on Eliquis and has eaten today so we could not perform procedure today. I would recommend she follow up with us outpatient. We would be happy to see her in our [place] office later this week and get her scheduled for EGD, possible dilatation, as well as obtain cardiac clearance to hold her Eliquis for procedure as she will need to be off the Eliquis for 48 hours before procedure. Patient agreeable to this plan.
[2024-07-20] MEDS: ELIQUIS 2.5 MG TABLET PO SCH (09:40)
[2024-07-20] MEDS: Protonix 40MG Tablet PO SCH (09:40)
[2024-07-20] MEDS: Sodium Chloride 0.9% 500 ML 500 ML IV SCH (10:51)
[2024-07-20 17:44] LABS: ANION GAP 13.6 MEQ/L (5-15); Calcium 9.3 mg/dL (8.4-10.2); Creatinine 1 1.79 mg/dL (0.52-1.04); EST GLOMERULAR FILTRATION RATE 28.5 ML/MIN; Potassium 4.6 mmol/L (3.5-5.1)
[2024-07-21 04:44] LABS: Hematocrit 36.9 % (34.1-44.9); Hemoglobin 11.8 g/dL (11.2-15.7); Mean Cell Volume 90.9 fL (79.4-94.8); Mean Corpuscular Hemoglobin 29.1 pg (25.6-32.2); Mean Platelet Volume 11.1 fL (9.4-12.3); Platelet Count 207 x10^3/uL (182-369); Red Blood Count 4.06 x10^6/uL (3.93-5.22); Red Cell Distribution Width 14.2 % (11.7-14.4); White Blood Count 5.3 x10^3/uL (3.98-10.04)
[2024-07-21 04:55] LABS: ALBUMIN 3.5 g/dL (3.5-5.0); ANION GAP 14.8 MEQ/L (5-15); BILIRUBIN,TOTAL 0.5 mg/dL (0.2-1.3); Creatinine 1 1.54 mg/dL (0.52-1.04); EST GLOMERULAR FILTRATION RATE 34.1 ML/MIN; Potassium 4.4 mmol/L (3.5-5.1); Total Protein 6.7 g/dL (6.3-8.2)
--- NOTE | 2024-07-21 05:37 | PCM.NOTE ---
Date and Time: 07/21/24 0529 Subjective Assessment: is a 78 year old female with PMHX of CHF, afib (on eliquis), hyperlipidemia, [place], TYpe II DM, hypothyroidism, OA, anxiety, and depression admitted 07/18/24 for URI and dysphagia after experiencing a one week history of a productive cough with green/bloody sputum , shortness of breath, and hoarsene ss. Patient also endorses a month history of progressive dysphasia with the sensation of food getting stuck. CXR with no acute findings. Labs with TATI - baseline creat around 1-1.2. Respiratory viral panel negative. Patient did receive IV lasix in the ED which may be contributing to her rise in creat. General surgery has been consulted for EGD for her dysphagia- will obtain as OP. IP treatment with ceftin for UTI - currently showing gram negative ID. 07/20/24: Met with patient bedside. Dyspnea and cough improved. Endorses cough remains productive with green sputum. Surgery consulted for EGD due to dysphagia - will obtain as OP. Discussed labs showing increase in creat. Patient is euvolemic. Will hold lasix/spironolactone/entresto today and continue fluids at 100ml/hr for 500mls. Sputum culture with gram - ID -continue with ceftin until final result. No urinary symptoms. 07/21/24: Met with patient bedside. Endorses productive cough this morning but otherwise feeling better today. Repeat cxr today with no acute findings. Sputum culture showing Serratia Marcescens- sens to ceftin. Will continue. Discussed labs with noted improvement with her creat levels. No edema on physical exam. Will continue to hold lasix/spironolactone/entresto today. Most likely can discharge tomorrow if she continues to improve. - Review of Systems Constitutional: No Symptoms Eyes: No Symptoms Ears, Nose, & Throat: No Symptoms Respiratory: Cough Cardiac: No Symptoms Abdominal/Gastrointestinal: No Symptoms Genitourinary Symptoms: No Symptoms Musculoskeletal: No Symptoms Skin: No Symptoms Neurological: No Symptoms Psychological: No Symptoms Endocrine: No Symptoms Hematologic/Lymphatic: No Symptoms Immunological/Allergic: No Symptoms Objective Exam General Appearance: no apparent distress Neurologic Exam: alert, oriented x 3, cooperative Skin Exam: normal color Eye Exam: PERRL Ears, Nose, Throat Exam: normal ENT inspection Neck Exam: normal inspection Respiratory Exam: crackles/rales Cardiovascular Exam: regular rate/rhythm, normal heart sounds Gastrointestinal/Abdomen Exam: soft, normal bowel sounds Extremity Exam: normal inspection Back Exam: normal inspection Pelvic Exam: deferred Rectal Exam: deferred Objective Data Vital Signs: Vital Signs - 24 hr Temp Pulse Resp BP Pulse Ox 07/21/24 04:00 97.2 F 58 L 18 109/52 94 L 07/20/24 23:09 98.7 F 57 L 17 99/49 94 L 07/20/24 18:57 97.5 F 54 L 16 103/50 97 07/20/24 16:00 98.1 F 66 20 101/53 94 L 07/20/24 12:00 97.8 F 58 L 20 94/48 95 07/20/24 07:41 97.7 F 69 23 132/58 93 L Pain Assessment - Last Documented Pain Intensity 0 Intake and Output: Intake & Output 07/18/24 07/19/24 07/20/24 07/21/24 11:59 11:59 11:59 11:59 Intake Total 520 1340 902 Output Total 1 Balance 520 1339 902 Weight 75.1 kg 74.5 kg Lab Results: Lab Results-Last 24 Hours 07/20/24 07/20/24 07/20/24 Range/Units 04:48 07:31 17:19 WBC (3.98-10.04) x10^3/uL RBC (3.93-5.22) x10^6/uL Hgb (11.2-15.7) g/dL Hct (34.1-44.9) % MCV (79.4-94.8) fL MCH (25.6-32.2) pg MCHC (32.2-35.5) g/dL RDW (11.7-14.4) % Plt Count (182-369) x10^3/uL MPV (9.4-12.3) fL Sodium (135-145) mmol/L Potassium (3.5-5.1) mmol/L Chloride (98-107) mmol/L Carbon Dioxide (22-30) mmol/L Anion Gap (5-15) MEQ/L BUN (7-17) mg/dL Creatinine (0.52-1.04) mg/dL Estimated GFR ML/MIN Glucose (74-106) mg/dL POC Glucometer 109 H 132 H (74 to 106) mg/dL Calcium (8.4-10.2) mg/dL Total Bilirubin (0.2-1.3) mg/dL AST (14-36) U/L ALT (0-35) U/L Alkaline Phosphatase (38-126) U/L Serum Total Protein (6.3-8.2) g/dL Albumin (3.5-5.0) g/dL TSH 3rd Generation 0.971 (0.470-4.680) mIU/L 07/20/24 07/20/24 07/21/24 Range/Units 17:22 21:29 04:05 WBC 5.3 (3.98-10.04) x10^3/uL RBC 4.06 (3.93-5.22) x10^6/uL Hgb 11.8 (11.2-15.7) g/dL Hct 36.9 (34.1-44.9) % MCV 90.9 (79.4-94.8) fL MCH 29.1 (25.6-32.2) pg MCHC 32.0 L (32.2-35.5) g/dL RDW 14.2 (11.7-14.4) % Plt Count 207 (182-369) x10^3/uL MPV 11.1 (9.4-12.3) fL Sodium 140 (135-145) mmol/L Potassium 4.6 (3.5-5.1) mmol/L Chloride 105 (98-107) mmol/L Carbon Dioxide 26 (22-30) mmol/L Anion Gap 13.6 (5-15) MEQ/L BUN 41 H (7-17) mg/dL Creatinine 1.79 H (0.52-1.04) mg/dL Estimated GFR 28.5 ML/MIN Glucose 149 H (74-106) mg/dL POC Glucometer 192 H (74 to 106) mg/dL Calcium 9.3 (8.4-10.2) mg/dL Total Bilirubin (0.2-1.3) mg/dL AST (14-36) U/L ALT (0-35) U/L Alkaline Phosphatase (38-126) U/L Serum Total Protein (6.3-8.2) g/dL Albumin (3.5-5.0) g/dL TSH 3rd Generation (0.470-4.680) mIU/L 07/21/24 Range/Units 04:05 WBC (3.98-10.04) x10^3/uL RBC (3.93-5.22) x10^6/uL Hgb (11.2-15.7) g/dL Hct (34.1-44.9) % MCV (79.4-94.8) fL MCH (25.6-32.2) pg MCHC (32.2-35.5) g/dL RDW (11.7-14.4) % Plt Count (182-369) x10^3/uL MPV (9.4-12.3) fL Sodium 141 (135-145) mmol/L Potassium 4.4 (3.5-5.1) mmol/L Chloride 109 H (98-107) mmol/L Carbon Dioxide 22 (22-30) mmol/L Anion Gap 14.8 (5-15) MEQ/L BUN 39 H (7-17) mg/dL Creatinine 1.54 H (0.52-1.04) mg/dL Estimated GFR 34.1 ML/MIN Glucose 159 H (74-106) mg/dL POC Glucometer (74 to 106) mg/dL Calcium 9.0 (8.4-10.2) mg/dL Total Bilirubin 0.50 (0.2-1.3) mg/dL AST 46 H (14-36) U/L ALT 26 (0-35) U/L Alkaline Phosphatase 91 (38-126) U/L Serum Total Protein 6.7 (6.3-8.2) g/dL Albumin 3.5 (3.5-5.0) g/dL TSH 3rd Generation (0.470-4.680) mIU/L Assessment/Plan (1) TATI (acute kidney injury) Current Visit: Yes Status: Acute Assessment & Plan: - creat 1.93- Baseline 0.99- trend - Hx CHF- on entresto -IVF at 100ml/hr for 500ml -monitor renal/lytes daily -avoid nephrotoxic medications -hold spironolactone/lasix/entresto 07/21: -creat improving now at 1.54<1.93 -continue to hold spironolactone/lasix/entresto Code(s): N17.9 - ACUTE KIDNEY FAILURE, UNSPECIFIED (2) URI (upper respiratory infection) Current Visit: Yes Status: Acute Assessment & Plan: -Respiratory viral panel negative -Supportive care with anti-pyretics, cough syrup, anti-emetics -At baseline RA -CXR with no acute findings -ceftin - patient with purulent sputum -Mucinex 07/21: -sputum culture with serratia marcescens - continue Ceftin Code(s): J06.9 - ACUTE UPPER RESPIRATORY INFECTION, UNSPECIFIED (3) CHF (congestive heart failure) Current Visit: Yes Status: Acute Assessment & Plan: - not in acute exacerbation -euvolemic on exam - Follows Dr. Whitten and wants to d/c prior to appointment Saturday - Lasix 40 IV gave in ER - At baseline RA - CXR with no consolidation/effusions -Continue home meds entresto - Echo 10/15/22 IMPRESSION: 1) GLOBAL LEFT VENTRICULAR HYPOKINESIA WITH A LEFT VENTRICULAR EJECTION FRACTION AROUND 35%. 2) SEVERE MITRAL REGURGITATION. 3) MODERATE AORTIC STENOSIS. 4) MILD TRICUSPID REGURGITATION. RIGHT VENTRICULAR SYSTOLIC PRESSURE OF 44 MM OF MERCURY. 5) MODERATE AORTIC REGURGITATION. 6) MILD PULMONIC INSUFFICIENCY. 7) LEFT VENTRICULAR HYPERTROPHY. 8) MODERATE TO SEVERE LEFT ATRIAL DILATATION. 9) MILDLY DILATED RIGHT SIDE CHAMBER. 10) MILD PULMONIC INSUFFICIENCY. 11) LEFT VENTRICLE DIASTOLIC DYSFUNCTION. 07/21: -Entresto/lasix/spironolactone held -repeat cxr with no acute findings Code(s): I50.9 - HEART FAILURE, UNSPECIFIED (4) Cough Current Visit: Yes Status: Acute Assessment & Plan: -see plan for URI Code(s): R05.9 - COUGH, UNSPECIFIED (5) Difficulty swallowing solids Current Visit: Yes Status: Acute Assessment & Plan: -Surgery consulted for possible EGD - they will complete this as op -Protonix Code(s): R13.10 - DYSPHAGIA, UNSPECIFIED (6) Hypothyroidism Current Visit: Yes Status: Acute Assessment & Plan: - Continue synthroid - TSH wnl Code(s): E03.9 - HYPOTHYROIDISM, UNSPECIFIED (7) Atrial fibrillation Current Visit: Yes Status: Chronic Qualifiers: Assessment & Plan: - Controlled - tele - Continue home meds - eliquis Code(s): I48.91 - UNSPECIFIED ATRIAL FIBRILLATION (8) HTN (hypertension) Current Visit: Yes Status: Chronic Assessment & Plan: -stable continue home meds Code(s): I10 - ESSENTIAL (PRIMARY) HYPERTENSION (9) Type II diabetes mellitus Current Visit: Yes Status: Chronic Qualifiers: Diabetes mellitus assisted insulin use: without assisted use Assessment & Plan: -SSI- low dose -Hold metformin -accuchecks ACHS -A1c 6.56 VTE: Eliquis- PPI: Protonix Next of KIN: D/C plan: 1-2 days Code status: Full code Code(s): N17.9 - ACUTE KIDNEY FAILURE, UNSPECIFIED (2) URI (upper respiratory infection) Current Visit: Yes Status: Acute Code(s): J06.9 - ACUTE UPPER RESPIRATORY INFECTION, UNSPECIFIED (3) CHF (congestive heart failure) Current Visit: Yes Status: Acute Code(s): I50.9 - HEART FAILURE, UNSPECIFIED (4) Cough Current Visit: Yes Status: Acute Code(s): R05.9 - COUGH, UNSPECIFIED (5) Difficulty swallowing solids Current Visit: Yes Status: Acute Code(s): R13.10 - DYSPHAGIA, UNSPECIFIED (6) Hypothyroidism Current Visit: Yes Status: Acute Code(s): E03.9 - HYPOTHYROIDISM, UNSPECIFIED (7) Atrial fibrillation Current Visit: Yes Status: Chronic Qualifiers: Code(s): I48.91 - UNSPECIFIED ATRIAL FIBRILLATION (8) HTN (hypertension) Current Visit: Yes Status: Chronic Code(s): I10 - ESSENTIAL (PRIMARY) HYPERTENSION (9) Type II diabetes mellitus Current Visit: Yes Status: Chronic Qualifiers: Diabetes mellitus assisted insulin use: without assisted use
--- NOTE | 2024-07-21 09:10 | XRAY ---
Indication: Bilateral lower lobe "crackled." Comparison: July 18, 2024 Portable chest unchanged again hyperinflated with left hilar/perihilar postsurgical changes and left infrahilar subsegmental atelectasis/scarring. Heart borderline enlarged. No new/acute cardiopulmonary abnormalities.
[2024-07-21] MEDS: TYLENOL 325 MG PO PRN (16:15)
--- NOTE | 2024-07-21 22:12 | TM.IN ---
Tele-Medicine Incident Note - Incident Note Tel-Medicine Incident Note: Cross Cover Note Notified by nursing of patient having large mass on right side of abdomen, painful, worse with coughing. Patient states she did not notice the mass a few days ago; that she first noticed it after arriving at the hospital. No erythema, no warmth, no pulsatility. Just tender. Obtained CT Abd/Pelvis w/o contrast (due to CKD). Pending full result, but images reviewed, and has large heterogenous abdominal wall mass along right si de. No fluid collection noted. Patient told nurse that if needs surgery, would want to be transferred. Reviewed notes, and patient's CHF is improving (diuretics held due to TATI.) If TATI improves, can consider doing repeat CT with contrast, although at this point infection is lower on differential and there is no fluid collection to assess for abscess. Can discuss in the morning with surgery if something that would be amenable to biopsy (mass is extra-abdominal), or if would normally try exploration and possible excisional biopsy. If so, would need to transfer patient. Alternatively, if patient wants to pursue outside workup and is ready for discharge from CHF perspective, can plan for quick follow-up for evaluation. Will defer to morning team, and plan patient-directed course based on surgery recommendations. Harman Goel MD Telemedicine Hospitalist [facility] Telemedicine Encounter - Telemedicine Encounter Telemedicine Encounter: "The entirety of this encounter was performed via Telemedicine" This visit was performed using real-time audio and video connection between my location and thepatients locationwith the assistance of a surrogateat the patients location. Written or verbal consent was obtained from the patient/guardian to perform this visit [email or web address] technology. Any patient questions regarding the telemedicine interaction were answered.
[2024-07-21] MEDS: NORCO 5/325 MG PO PRN (22:33)
[2024-07-22 05:08] LABS: Absolute Neutrophil Ct (ANC) 4.83 x10^3/uL (1.56-6.13); BASOPHIL % 0.3 % (0.1-1.2); Basophil (Absolute #) 0.02 x10^3/uL (0.01-0.08); Eosinophil % 4.7 % (0.7-5.8); Eosinophil (Absolute #) 0.34 x10^3/uL (0.04-0.36); Hematocrit 30.5 % (34.1-44.9); Hemoglobin 9.8 g/dL (11.2-15.7); IMMATURE GRAN # 0.04 x10^3u/L (0.001-0.031); IMMATURE GRAN % 0.5 % (0.001-0.429); Lymphocyte (Absolute #) 1.49 x10^3/uL (1.18-3.74); Lymphocytes % 20.4 % (19.3-51.7); Mean Corpuscular Hemoglobin 29.3 pg (25.6-32.2); Mean Corpuscular Hgb Concent. 32.1 g/dL (32.2-35.5); Mean Platelet Volume 10.8 fL (9.4-12.3); Monocyte (Absolute #) 0.58 x10^3/uL (0.24-0.86); Monocytes % 7.9 % (4.7-12.5); Neutrophil % 66.2 % (34.0-71.1); Platelet Count 216 x10^3/uL (182-369); Red Blood Count 3.35 x10^6/uL (3.93-5.22); Red Cell Distribution Width 14.2 % (11.7-14.4); White Blood Count 7.3 x10^3/uL (3.98-10.04)
--- NOTE | 2024-07-22 05:13 | PCM.NOTE ---
Date and Time: 07/22/24 0509 Subjective Assessment: is a 78 year old female with PMHX of CHF, afib (on eliquis), hyperlipidemia, [place], TYpe II DM, hypothyroidism, OA, anxiety, and depression admitted 07/18/24 for URI and dysphagia after experiencing a one week history of a productive cough with green/bloody sputum , shortness of breath, and hoarsene ss. Patient also endorses a month history of progressive dysphasia with the sensation of food getting stuck. CXR with no acute findings. Labs with TATI - baseline creat around 1-1.2. Respiratory viral panel negative. Patient did receive IV lasix in the ED which may be contributing to her rise in creat. General surgery has been consulted for EGD for her dysphagia- will obtain as OP. IP treatment with ceftin for UTI - currently showing gram negative ID. Patient noting a mass to right abdomen which is painful with cough. CT imaging showing large heterogenous abdominal wall mass along right side with no fluid collection noted- final results pending. 07/20/24: Met with patient bedside. Dyspnea and cough improved. Endorses cough remains productive with green sputum. Surgery consulted for EGD due to dysphagia - will obtain as OP. Discussed labs showing increase in creat. Patient is euvolemic. Will hold lasix/spironolactone/entresto today and continue fluids at 100ml/hr for 500mls. Sputum culture with gram - ID -continue with ceftin until final result. No urinary symptoms. 07/21/24: Met with patient bedside. Endorses productive cough this morning but otherwise feeling better today. Repeat cxr today with no acute findings. Sputum culture showing Serratia Marcescens- sens to ceftin. Will continue. Discussed labs with noted improvement with her creat levels. No edema on physical exam. Will continue to hold lasix/spironolactone/entresto today. Most likely can discharge tomorrow if she continues to improve. 07/22/24: Overnight events noted of patient complaints of right lateral abdominal pain and mass. Patient states she just noticed this 07/21/24 around 5 p[address] Endorses continued cough. CT imaging showing large lateral right abdominal wall heterogeneous mass as detailed. Partial differential offered on this noncontrast exam includes hematoma, infectious process/abscess, and benign/malignant soft tissue malignancies. Patient with 2 pt drop in Hgb 9.8<11.8. Surgery consulted - appreciate recs. Creat remains elevated. - Review of Systems Constitutional: No Symptoms Eyes: No Symptoms Ears, Nose, & Throat: No Symptoms Respiratory: Cough Abdominal/Gastrointestinal: Abdominal Pain (Right flank) Genitourinary Symptoms: No Symptoms Musculoskeletal: No Symptoms Skin: No Symptoms Neurological: No Symptoms Psychological: No Symptoms Endocrine: No Symptoms Hematologic/Lymphatic: No Symptoms Immunological/Allergic: No Symptoms Objective Exam General Appearance: no apparent distress Neurologic Exam: alert, oriented x 3, cooperative Skin Exam: normal color Eye Exam: PERRL Ears, Nose, Throat Exam: normal ENT inspection Neck Exam: normal inspection Respiratory Exam: normal breath sounds, lungs clear Cardiovascular Exam: regular rate/rhythm, normal heart sounds Gastrointestinal/Abdomen Exam: soft, normal bowel sounds, other (right lateral mass -solid) Extremity Exam: normal inspection Back Exam: normal inspection Pelvic Exam: deferred Rectal Exam: deferred Objective Data Vital Signs: Vital Signs - 24 hr Temp Pulse Resp BP Pulse Ox 07/22/24 04:00 98.0 F 63 18 106/54 96 07/22/24 00:00 98.1 F 60 16 98/49 94 L 07/21/24 19:55 98.0 F 59 L 16 101/55 94 L 07/21/24 15:33 97.8 F 65 16 91/52 95 07/21/24 11:43 97.8 F 90 16 118/57 97 07/21/24 08:00 97.8 F 59 L 16 139/56 94 L Pain Assessment - Last Documented Pain Intensity 10 Pain Scale Used 0-10 Pain Scale Intake and Output: Intake & Output 07/19/24 07/20/24 07/21/24 07/22/24 11:59 11:59 11:59 11:59 Intake Total 520 1340 1282 1240 Output Total 1 Balance 520 1339 1282 1240 Weight 75.1 kg 74.5 kg 74.6 kg Lab Results: Lab Results-Last 24 Hours 07/21/24 07/21/24 07/21/24 Range/Units 07:23 11:32 16:18 POC Glucometer 107 H 213 H TNP (74 to 106) mg/dL 07/21/24 Range/Units 21:08 POC Glucometer 269 H (74 to 106) mg/dL Radiology Exams: Radiology Procedures Category Date Time Status ABDOMEN AND PELVIS W/0 CONTRAS [CT] Stat Exams 07/21/24 20:07 Taken CHEST 1 VIEW (PORTABLE) Urgent Exams 07/21/24 08:04 Completed Multi-Disciplinary Progress Notes: Multi-Disciplinary Progress Notes 07/21/24 10:54 Case Management Note by Agusto Garibayise S/W PATIENT AND SHE CONTINUES TO DENY ANY NEW NEEDS AT DC. STILL REFUSES [facility] AT THIS TIME. WILL DC HOME WITH SPOUSE FELICIA TO ASSIST NEEDED. Initialized on 07/21/24 10:54 - END OF NOTE Assessment/Plan (1) TATI (acute kidney injury) Current Visit: Yes Status: Acute Assessment & Plan: - creat 1.93- Baseline 0.99- trend - Hx CHF- on entresto -IVF at 100ml/hr for 500ml -monitor renal/lytes daily -avoid nephrotoxic medications -hold spironolactone/lasix/entresto 07/21: -creat improving now at 1.54<1.93 -continue to hold spironolactone/lasix/entresto 07/22: -continue to hold spironolactone/lasix/entresto creat 1.64>1.54 - may be secondary to ?hematoma found on CT Code(s): N17.9 - ACUTE KIDNEY FAILURE, UNSPECIFIED Mass Right Abdomen -CT abdomen and pelvis showing large lateral right abdominal wall heterogeneous mass as detailed. Partial differential offered on this noncontrast exam includes hematoma, infectious process/abscess, and benign/malignant soft tissue malignancies -Surgery consulted- appreciate recs -Hold eliquis (2) URI (upper respiratory infection) Current Visit: Yes Status: Acute Assessment & Plan: -Respiratory viral panel negative -Supportive care with anti-pyretics, cough syrup, anti-emetics -At baseline RA -CXR with no acute findings -ceftin - patient with purulent sputum -Mucinex 07/21: -sputum culture with serratia marcescens - continue Ceftin Code(s): J06.9 - ACUTE UPPER RESPIRATORY INFECTION, UNSPECIFIED (3) CHF (congestive heart failure) Current Visit: Yes Status: Acute Assessment & Plan: - not in acute exacerbation -euvolemic on exam - Follows Dr. Whitten and wants to d/c prior to appointment Saturday - Lasix 40 IV gave in ER - At baseline RA - CXR with no consolidation/effusions -Continue home meds entresto - Echo 10/15/22 IMPRESSION: 1) GLOBAL LEFT VENTRICULAR HYPOKINESIA WITH A LEFT VENTRICULAR EJECTION FRACTION AROUND 35%. 2) SEVERE MITRAL REGURGITATION. 3) MODERATE AORTIC STENOSIS. 4) MILD TRICUSPID REGURGITATION. RIGHT VENTRICULAR SYSTOLIC PRESSURE OF 44 MM OF MERCURY. 5) MODERATE AORTIC REGURGITATION. 6) MILD PULMONIC INSUFFICIENCY. 7) LEFT VENTRICULAR HYPERTROPHY. 8) MODERATE TO SEVERE LEFT ATRIAL DILATATION. 9) MILDLY DILATED RIGHT SIDE CHAMBER. 10) MILD PULMONIC INSUFFICIENCY. 11) LEFT VENTRICLE DIASTOLIC DYSFUNCTION. 07/21: -Entresto/lasix/spironolactone held -repeat cxr with no acute findings 07/22: -CT abdomen with pleural effusion - lungs clear today - no edema on exam - continue to hold meds with worsening kidney function Code(s): I50.9 - HEART FAILURE, UNSPECIFIED (4) Cough Current Visit: Yes Status: Acute Assessment & Plan: -see plan for URI -add vicki perldemi Code(s): R05.9 - COUGH, UNSPECIFIED (5) Difficulty swallowing solids Current Visit: Yes Status: Acute Assessment & Plan: -Surgery consulted for possible EGD - they will complete this as op -Protonix Code(s): R13.10 - DYSPHAGIA, UNSPECIFIED (6) Hypothyroidism Current Visit: Yes Status: Acute Assessment & Plan: - Continue synthroid - TSH wnl Code(s): E03.9 - HYPOTHYROIDISM, UNSPECIFIED (7) Atrial fibrillation Current Visit: Yes Status: Chronic Qualifiers: Assessment & Plan: - Controlled - tele - Continue home meds - eliquis -hold with drop in hgb ? hematoma Code(s): I48.91 - UNSPECIFIED ATRIAL FIBRILLATION (8) HTN (hypertension) Current Visit: Yes Status: Chronic Assessment & Plan: -stable continue home meds Code(s): I10 - ESSENTIAL (PRIMARY) HYPERTENSION (9) Type II diabetes mellitus Current Visit: Yes Status: Chronic Qualifiers: Diabetes mellitus sustainable communities designer insulin use: without sustainable communities designer use Assessment & Plan: -SSI- low dose -Hold metformin -accuchecks ACHS -A1c 6.56 VTE: Eliquis- PPI: Protonix Next of KIN: D/C plan: 1-2 days Code status: Full code Code(s): N17.9 - ACUTE KIDNEY FAILURE, UNSPECIFIED (2) URI (upper respiratory infection) Current Visit: Yes Status: Acute Code(s): J06.9 - ACUTE UPPER RESPIRATORY INFECTION, UNSPECIFIED (3) CHF (congestive heart failure) Current Visit: Yes Status: Acute Code(s): I50.9 - HEART FAILURE, UNSPECIFIED (4) Cough Current Visit: Yes Status: Acute Code(s): R05.9 - COUGH, UNSPECIFIED (5) Difficulty swallowing solids Current Visit: Yes Status: Acute Code(s): R13.10 - DYSPHAGIA, UNSPECIFIED (6) Hypothyroidism Current Visit: Yes Status: Acute Code(s): E03.9 - HYPOTHYROIDISM, UNSPECIFIED (7) Atrial fibrillation Current Visit: Yes Status: Chronic Qualifiers: Code(s): I48.91 - UNSPECIFIED ATRIAL FIBRILLATION (8) HTN (hypertension) Current Visit: Yes Status: Chronic Code(s): I10 - ESSENTIAL (PRIMARY) HYPERTENSION (9) Type II diabetes mellitus Current Visit: Yes Status: Chronic Qualifiers: Diabetes mellitus senior living insulin use: without senior living use
[2024-07-22 05:25] LABS: ALBUMIN 3.1 g/dL (3.5-5.0); ANION GAP 11.4 MEQ/L (5-15); BILIRUBIN,TOTAL 0.5 mg/dL (0.2-1.3); Calcium 8.4 mg/dL (8.4-10.2); Creatinine 1 1.64 mg/dL (0.52-1.04); EST GLOMERULAR FILTRATION RATE 31.7 ML/MIN; Potassium 4.1 mmol/L (3.5-5.1); Total Protein 6.1 g/dL (6.3-8.2)
--- NOTE | 2024-07-22 09:15 | XRAY ---
Indication: Abdominal mass. Multiple contiguous axial images obtained through the abdomen and pelvis without contrast. Comparison: July 28, 2020 Lung bases now demonstrates cardiomegaly again with coronary calcifications and mitral valve calcifications. Also new tiny bilateral effusions concerning for cardiac decompensation/CHF versus fluid overload. Again scattered left lung base/atelectasis/scarring. Right lateral mid axillary line abdominal wall demonstrates new heterogeneous noncalcified soft tissue mass measuring at least 11.3 x 6.8 x 8.8 cm. Lack of IV contrast precludes further characterization. Stomach distended with food. Gallbladder contracted without gallstones. Noncontrasted stomach and bowel loops appear nonobstructed. New moderate diffuse colonic fecal stasis. Again sigmoid diverticulosis without diverticulitis, tiny hepatic/splenic calcific granulomas, appendectomy, and hysterectomy. No free fluid/air. Remaining liver, gallbladder, pancreas, spleen, adrenal glands, kidneys, ureters, and bladder are unremarkable for noncontrast exam. There remains moderate diffuse scattered arteriosclerotic calcifications. No AAA. Osseous structures intact again with osteopenia, mild degenerative spondylosis throughout the spine, minimal grade 1 listhesis L4 on L5, and mild degenerative changes both hips. Impression: 1. New large lateral right abdominal wall heterogeneous mass as detailed. Partial differential offered on this noncontrast exam includes hematoma, infectious process/abscess, and benign/malignant soft tissue malignancies. Correlate clinically. 2. New cardiomegaly with bilateral effusions. Rule out cardiac decompensation/CHF versus fluid overload. 3. New moderate diffuse colonic fecal stasis. 4. Chronic findings including mitral valve calcifications sigmoid diverticulosis, arteriosclerotic disease, and chronic bony findings.
[2024-07-22] MEDS: Tessalon Perles 100 MG PO PRN (12:17)
[2024-07-22 13:13] LABS: Hematocrit 32.1 % (34.1-44.9); Hemoglobin 10.2 g/dL (11.2-15.7)
[2024-07-23 04:03] VITALS: RESP 16
--- NOTE | 2024-07-23 05:28 | PCM.NOTE ---
Date and Time: 07/23/24 0527 Subjective Assessment: is a 78 year old female with PMHX of CHF, afib (on eliquis), hyperlipidemia, [place], TYpe II DM, hypothyroidism, OA, anxiety, and depression admitted 07/18/24 for URI and dysphagia after experiencing a one week history of a productive cough with green/bloody sputum , shortness of breath, and hoarsene ss. Patient also endorses a month history of progressive dysphasia with the sensation of food getting stuck. CXR with no acute findings. Labs with TATI - baseline creat around 1-1.2. Respiratory viral panel negative. Patient did receive IV lasix in the ED which may be contributing to her rise in creat. General surgery has been consulted for EGD for her dysphagia- will obtain as OP. IP treatment with ceftin for UTI - currently showing gram negative ID. Patient noting a mass to right abdomen which is painful with cough. CT imaging showing large heterogenous abdominal wall mass along right side with no fluid collection noted- final results pending. 07/20/24: Met with patient bedside. Dyspnea and cough improved. Endorses cough remains productive with green sputum. Surgery consulted for EGD due to dysphagia - will obtain as OP. Discussed labs showing increase in creat. Patient is euvolemic. Will hold lasix/spironolactone/entresto today and continue fluids at 100ml/hr for 500mls. Sputum culture with gram - ID -continue with ceftin until final result. No urinary symptoms. 07/21/24: Met with patient bedside. Endorses productive cough this morning but otherwise feeling better today. Repeat cxr today with no acute findings. Sputum culture showing Serratia Marcescens- sens to ceftin. Will continue. Discussed labs with noted improvement with her creat levels. No edema on physical exam. Will continue to hold lasix/spironolactone/entresto today. Most likely can discharge tomorrow if she continues to improve. 07/22/24: Overnight events noted of patient complaints of right lateral abdominal pain and mass. Patient states she just noticed this 07/21/24 around 5 p.m. Endorses continued cough. CT imaging showing large lateral right abdominal wall heterogeneous mass as detailed. Partial differential offered on this noncontrast exam includes hematoma, infectious process/abscess, and benign/malignant soft tissue malignancies. Patient with 2 pt drop in Hgb 9.8<11.8. Surgery consulted - appreciate recs. Creat remains elevated. Objective Data Vital Signs: Vital Signs - 24 hr Temp Pulse Resp BP Pulse Ox 07/23/24 04:00 98.5 F 72 16 115/58 98 07/23/24 00:00 69 20 07/22/24 20:00 99.0 F 74 16 111/72 97 07/22/24 16:00 97.6 F 67 16 101/51 95 07/22/24 12:00 97.7 F 98 H 16 99/55 96 07/22/24 07:29 98.1 F 76 16 117/56 97 Pain Assessment - Last Documented Pain Intensity 7 Pain Scale Used 0-10 Pain Scale Intake and Output: Intake & Output 07/20/24 07/21/24 07/22/24 07/23/24 11:59 11:59 11:59 11:59 Intake Total 1340 1282 1480 480 Output Total 1 Balance 1339 1282 1480 480 Weight 74.5 kg 74.6 kg 77.3 kg Lab Results: Lab Results-Last 24 Hours 07/22/24 07/22/24 07/22/24 Range/Units 04:30 07:08 11:49 Hgb (11.2-15.7) g/dL Hct (34.1-44.9) % Sodium 140 (135-145) mmol/L Potassium 4.1 (3.5-5.1) mmol/L Chloride 108 H (98-107) mmol/L Carbon Dioxide 25 (22-30) mmol/L Anion Gap 11.4 (5-15) MEQ/L BUN 38 H (7-17) mg/dL Creatinine 1.64 H (0.52-1.04) mg/dL Estimated GFR 31.7 ML/MIN Glucose 114 H (74-106) mg/dL POC Glucometer 110 H 160 H (74 to 106) mg/dL Calcium 8.4 (8.4-10.2) mg/dL Total Bilirubin 0.50 (0.2-1.3) mg/dL AST 46 H (14-36) U/L ALT 26 (0-35) U/L Alkaline Phosphatase 85 (38-126) U/L Serum Total Protein 6.1 L (6.3-8.2) g/dL Albumin 3.1 L (3.5-5.0) g/dL 07/22/24 07/22/24 07/22/24 Range/Units 13:02 16:06 21:09 Hgb 10.2 L (11.2-15.7) g/dL Hct 32.1 L (34.1-44.9) % Sodium (135-145) mmol/L Potassium (3.5-5.1) mmol/L Chloride (98-107) mmol/L Carbon Dioxide (22-30) mmol/L Anion Gap (5-15) MEQ/L BUN (7-17) mg/dL Creatinine (0.52-1.04) mg/dL Estimated GFR ML/MIN Glucose (74-106) mg/dL POC Glucometer 200 H 174 H (74 to 106) mg/dL Calcium (8.4-10.2) mg/dL Total Bilirubin (0.2-1.3) mg/dL AST (14-36) U/L ALT (0-35) U/L Alkaline Phosphatase (38-126) U/L Serum Total Protein (6.3-8.2) g/dL Albumin (3.5-5.0) g/dL Radiology Exams: Radiology Procedures Category Date Time Status ABDOMEN AND PELVIS W/0 CONTRAS [CT] Stat Exams 07/21/24 20:07 Completed CHEST 1 VIEW (PORTABLE) Urgent Exams 07/21/24 08:04 Completed Multi-Disciplinary Progress Notes: Multi-Disciplinary Progress Notes 07/22/24 13:27 Case Management Note by Tmamie Dorsey S/W PATIENT- SHE CONTINUES TO DENY ANY NEW NEEDS AT TIME OF DC. SHE PLANS TO DC HOME WITH HER AT TIME OF DC Initialized on 07/22/24 13:27 - END OF NOTE Assessment/Plan (1) TATI (acute kidney injury) Current Visit: Yes Status: Acute Assessment & Plan: - creat 1.93- Baseline 0.99- trend - Hx CHF- on entresto -IVF at 100ml/hr for 500ml -monitor renal/lytes daily -avoid nephrotoxic medications -hold spironolactone/lasix/entresto 07/21: -creat improving now at 1.54<1.93 -continue to hold spironolactone/lasix/entresto 07/22: -continue to hold spironolactone/lasix/entresto creat 1.64>1.54 - may be secondary to ?hematoma found on CT Code(s): N17.9 - ACUTE KIDNEY FAILURE, UNSPECIFIED Mass Right Abdomen -CT abdomen and pelvis showing large lateral right abdominal wall heterogeneous mass as detailed. Partial differential offered on this noncontrast exam includes hematoma, infectious process/abscess, and benign/malignant soft tissue malignancies -Surgery consulted- appreciate recs -Hold eliquis (2) URI (upper respiratory infection) Current Visit: Yes Status: Acute Assessment & Plan: -Respiratory viral panel negative -Supportive care with anti-pyretics, cough syrup, anti-emetics -At baseline RA -CXR with no acute findings -ceftin - patient with purulent sputum -Mucinex 07/21: -sputum culture with serratia marcescens - continue Ceftin Code(s): J06.9 - ACUTE UPPER RESPIRATORY INFECTION, UNSPECIFIED (3) CHF (congestive heart failure) Current Visit: Yes Status: Acute Assessment & Plan: - not in acute exacerbation -euvolemic on exam - Follows Dr. Whitten and wants to d/c prior to appointment Saturday - Lasix 40 IV gave in ER - At baseline RA - CXR with no consolidation/effusions -Continue home meds entresto - Echo 10/15/22 IMPRESSION: 1) GLOBAL LEFT VENTRICULAR HYPOKINESIA WITH A LEFT VENTRICULAR EJECTION FRACTION AROUND 35%. 2) SEVERE MITRAL REGURGITATION. 3) MODERATE AORTIC STENOSIS. 4) MILD TRICUSPID REGURGITATION. RIGHT VENTRICULAR SYSTOLIC PRESSURE OF 44 MM OF MERCURY. 5) MODERATE AORTIC REGURGITATION. 6) MILD PULMONIC INSUFFICIENCY. 7) LEFT VENTRICULAR HYPERTROPHY. 8) MODERATE TO SEVERE LEFT ATRIAL DILATATION. 9) MILDLY DILATED RIGHT SIDE CHAMBER. 10) MILD PULMONIC INSUFFICIENCY. 11) LEFT VENTRICLE DIASTOLIC DYSFUNCTION. 07/21: -Entresto/lasix/spironolactone held -repeat cxr with no acute findings 07/22: -CT abdomen with pleural effusion - lungs clear today - no edema on exam - continue to hold meds with worsening kidney function Code(s): I50.9 - HEART FAILURE, UNSPECIFIED (4) Cough Current Visit: Yes Status: Acute Assessment & Plan: -see plan for URI -add tespancho sierra Code(s): R05.9 - COUGH, UNSPECIFIED (5) Difficulty swallowing solids Current Visit: Yes Status: Acute Assessment & Plan: -Surgery consulted for possible EGD - they will complete this as op -Protonix Code(s): R13.10 - DYSPHAGIA, UNSPECIFIED (6) Hypothyroidism Current Visit: Yes Status: Acute Assessment & Plan: - Continue synthroid - TSH wnl Code(s): E03.9 - HYPOTHYROIDISM, UNSPECIFIED (7) Atrial fibrillation Current Visit: Yes Status: Chronic Qualifiers: Assessment & Plan: - Controlled - tele - Continue home meds - eliquis -hold with drop in hgb ? hematoma Code(s): I48.91 - UNSPECIFIED ATRIAL FIBRILLATION (8) HTN (hypertension) Current Visit: Yes Status: Chronic Assessment & Plan: -stable continue home meds Code(s): I10 - ESSENTIAL (PRIMARY) HYPERTENSION (9) Type II diabetes mellitus Current Visit: Yes Status: Chronic Qualifiers: Diabetes mellitus oracle sql developer insulin use: without oracle sql developer use Assessment & Plan: -SSI- low dose -Hold metformin -accuchecks ACHS -A1c 6.56 VTE: Eliquis- PPI: Protonix Next of KIN: D/C plan: 1-2 days Code status: Full code Code(s): N17.9 - ACUTE KIDNEY FAILURE, UNSPECIFIED (2) URI (upper respiratory infection) Current Visit: Yes Status: Acute Code(s): J06.9 - ACUTE UPPER RESPIRATORY INFECTION, UNSPECIFIED (3) CHF (congestive heart failure) Current Visit: Yes Status: Acute Code(s): I50.9 - HEART FAILURE, UNSPECIFIED (4) Cough Current Visit: Yes Status: Acute Code(s): R05.9 - COUGH, UNSPECIFIED (5) Difficulty swallowing solids Current Visit: Yes Status: Acute Code(s): R13.10 - DYSPHAGIA, UNSPECIFIED (6) Hypothyroidism Current Visit: Yes Status: Acute Code(s): E03.9 - HYPOTHYROIDISM, UNSPEC IFIED (7) Atrial fibrillation Current Visit: Yes Status: Chronic Qualifiers: Code(s): I48.91 - UNSPECIFIED ATRIAL FIBRILLATION (8) HTN (hypertension) Current Visit: Yes Status: Chronic Code(s): I10 - ESSENTIAL (PRIMARY) HYPERTENSION (9) Type II diabetes mellitus Current Visit: Yes Status: Chronic Qualifiers: Diabetes mellitus pen[facility]entiary insulin use: without oracle sql developer use (10) Mass of abdomen Current Visit: Yes Status: Acute Code(s): R19.00 - INTRA-ABD AND PELVIC SWELLING, MASS AND LUMP, UNSP SITE
[2024-07-23 05:30] LABS: BASOPHIL % 0.6 % (0.1-1.2); Basophil (Absolute #) 0.04 x10^3/uL (0.01-0.08); Eosinophil (Absolute #) 0.29 x10^3/uL (0.04-0.36); Hematocrit 28.6 % (34.1-44.9); Hemoglobin 9.2 g/dL (11.2-15.7); IMMATURE GRAN # 0.04 x10^3u/L (0.001-0.031); IMMATURE GRAN % 0.6 % (0.001-0.429); Lymphocyte (Absolute #) 1.49 x10^3/uL (1.18-3.74); Lymphocytes % 20.8 % (19.3-51.7); Mean Cell Volume 90.8 fL (79.4-94.8); Mean Corpuscular Hemoglobin 29.2 pg (25.6-32.2); Mean Corpuscular Hgb Concent. 32.2 g/dL (32.2-35.5); Mean Platelet Volume 10.7 fL (9.4-12.3); Monocyte (Absolute #) 0.71 x10^3/uL (0.24-0.86); Monocytes % 9.9 % (4.7-12.5); Neutrophil % 64.1 % (34.0-71.1); Platelet Count 211 x10^3/uL (182-369); Red Blood Count 3.15 x10^6/uL (3.93-5.22); White Blood Count 7.2 x10^3/uL (3.98-10.04)
[2024-07-23 05:41] LABS: ANION GAP 9.9 MEQ/L (5-15); BILIRUBIN,TOTAL 0.5 mg/dL (0.2-1.3); Calcium 8.3 mg/dL (8.4-10.2); Creatinine 1 1.25 mg/dL (0.52-1.04); EST GLOMERULAR FILTRATION RATE 43.8 ML/MIN; Potassium 4.3 mmol/L (3.5-5.1); Total Protein 5.9 g/dL (6.3-8.2)
--- NOTE | 2024-07-23 11:11 | PCM.DS ---
Discharge Summary Date of Admission: 07/20/24 05:30 Date of Discharge: 07/23/24 Admitting Physician: LIAM BLAKE MD Consults: Consults on Case 07/19/24 09:06 Consult Surgery ROUTINE 07/22/24 07:09 Consult Surgery ROUTINE Primary Care Provider: KRISTIN BAKER Allergies Allergies No Known Drug Allergies Allergy (Verified 07/18/24 19:34) Hospital Summary - Hospital Course Hospital Course: is a 78 year old female with PMHX of CHF, afib (on eliquis), hyperlipidemia, OH, TYpe II DM, hypothyroidism, OA, anxiety, and depression admitted 07/18/24 for URI and dysphagia after experiencing a one week history of a productive cough with green/bloody sputum , shortness of breath, and hoarseness. Patient also endorses a month history of progressive dysphasia with the sensation of food getting stuck. CXR with no acute findings. Labs with TATI - baseline creat around 1-1.2. Respiratory viral panel negative. Patient did receive IV lasix in the ED which may be contributing to her rise in creat. General surgery has been consulted for EGD for her dysphagia- will obtain as OP. IP treatment with ceftin for sputum culture with serratia marcescens. Patient noting a mass to right abdomen which is painful with cough. CT imaging showing large heterogenous abdominal wall mass along right side with no fluid collection noted. Surgery consulted and believes this is a hematoma - recommendations for Eliquis to be held x 2 week, abdominal binder, and follow up as OP. Cough improved. Entresto/lasix/spironolactone held - creat improving. Patient advised to continue to hold meds - discussed with Dr. Vann's nurse charlotte Mckeon to hold meds - patient to l follow up Saturday with Dr. Vann. Patient requesting discharge home today. Will send home on Discharge Note New Diagnosis: TATI/URI New Medications: cefuroxime Follow Up: Edwar/PCP Latest Assessment & Plan (1) TATI (acute kidney injury) Current Visit: Yes Status: Acute Assessment & Plan: - creat 1.93- Baseline 0.99- trend - Hx CHF- on entresto -IVF at 100ml/hr for 500ml -monitor renal/lytes daily -avoid nephrotoxic medications -hold spironolactone/lasix/entresto 07/21: -creat improving now at 1.54<1.93 -continue to hold spironolactone/lasix/entresto 07/22: -continue to hold spironolactone/lasix/entresto creat 1.64>1.54 - may be secondary to ?hematoma found on CT Code(s): N17.9 - ACUTE KIDNEY FAILURE, UNSPECIFIED Mass Right Abdomen -CT abdomen and pelvis showing large lateral right abdominal wall heterogeneous mass as detailed. Partial differential offered on this noncontrast exam includes hematoma, infectious process/abscess, and benign/malignant soft tissue malignancies -Surgery consulted- Hold eliquis, abdominal binder, follow up as OP (2) URI (upper respiratory infection) Current Visit: Yes Status: Acute Assessment & Plan: -Respiratory viral panel negative -Supportive care with anti-pyretics, cough syrup, anti-emetics -At baseline RA -CXR with no acute findings -ceftin - patient with purulent sputum -Mucinex 07/21: -sputum culture with serratia marcescens - continue Ceftin Code(s): J06.9 - ACUTE UPPER RESPIRATORY INFECTION, UNSPECIFIED (3) CHF (congestive heart failure) Current Visit: Yes Status: Acute Assessment & Plan: - not in acute exacerbation -euvolemic on exam - Follows Dr. Whitten and wants to d/c prior to appointment Saturday - Lasix 40 IV gave in ER - At baseline RA - CXR with no consolidation/effusions -Continue home meds entresto - Echo 10/15/22 IMPRESSION: 1) GLOBAL LEFT VENTRICULAR HYPOKINESIA WITH A LEFT VENTRICULAR EJECTION FRACTION AROUND 35%. 2) SEVERE MITRAL REGURGITATION. 3) MODERATE AORTIC STENOSIS. 4) MILD TRICUSPID REGURGITATION. RIGHT VENTRICULAR SYSTOLIC PRESSURE OF 44 MM OF MERCURY. 5) MODERATE AORTIC REGURGITATION. 6) MILD PULMONIC INSUFFICIENCY. 7) LEFT VENTRICULAR HYPERTROPHY. 8) MODERATE TO SEVERE LEFT ATRIAL DILATATION. 9) MILDLY DILATED RIGHT SIDE CHAMBER. 10) MILD PULMONIC INSUFFICIENCY. 11) LEFT VENTRICLE DIASTOLIC DYSFUNCTION. 07/21: -Entresto/lasix/spironolactone held -repeat cxr with no acute findings 07/22: -CT abdomen with pleural effusion - lungs clear today - no edema on exam - continue to hold meds with worsening kidney function Code(s): I50.9 - HEART FAILURE, UNSPECIFIED (4) Cough Current Visit: Yes Status: Acute Assessment & Plan: -see plan for URI -add vicki sierra Code(s): R05.9 - COUGH, UNSPECIFIED (5) Difficulty swallowing solids Current Visit: Yes Status: Acute Assessment & Plan: -Surgery consulted for possible EGD - they will complete this as op -Protonix Code(s): R13.10 - DYSPHAGIA, UNSPECIFIED (6) Hypothyroidism Current Visit: Yes Status: Acute Assessment & Plan: - Continue synthroid - TSH wnl Code(s): E03.9 - HYPOTHYROIDISM, UNSPECIFIED (7) Atrial fibrillation Current Visit: Yes Status: Chronic Qualifiers: Assessment & Plan: - Controlled - tele - Continue home meds - eliquis -hold with drop in hgb ? hematoma Code(s): I48.91 - UNSPECIFIED ATRIAL FIBRILLATION (8) HTN (hypertension) Current Visit: Yes Status: Chronic Assessment & Plan: -stable continue home meds Code(s): I10 - ESSENTIAL (PRIMARY) HYPERTENSION (9) Type II diabetes mellitus Current Visit: Yes Status: Chronic Qualifiers: Diabetes mellitus group home insulin use: without buttermaker helper use Assessment & Plan: -SSI- low dose -Hold metformin -accuchecks ACHS -A1c 6.56 I spent 35 minutes [id number] with the patient on the day of discharge performing discharge exam, discussing hospital stay and discharge instructions with patient and caregivers, preparation of discharge records, prescriptions & referral forms and addressing any questions/concerns the patient had as documented above. - Vitals & Intake/Output Vital Signs: Vital Signs Temperature 98.0 F 07/23/24 07:17 Pulse Rate 60 07/23/24 07:17 Respiratory Rate 16 07/23/24 07:17 Blood Pressure 110/52 07/23/24 07:17 O2 Sat by Pulse Oximetry 94 L 07/23/24 07:17 Intake & Output: Intake & Output 07/20/24 07/21/24 07/22/24 07/23/24 11:59 11:59 11:59 11:59 Intake Total 1340 1282 1480 720 Output Total 1 Balance 1339 1282 1480 720 Weight 74.5 kg 74.6 kg 77.3 kg 77.4 kg - Lab Result Diagrams: 07/23/24 04:30 07/23/24 04:30 Lab Results-Last 24 Hrs: Lab Results-Last 24 Hours 07/22/24 07/22/24 07/22/24 Range/Units 11:49 13:02 16:06 WBC (3.98-10.04) x10^3/uL RBC (3.93-5.22) x10^6/uL Hgb 10.2 L (11.2-15.7) g/dL Hct 32.1 L (34.1-44.9) % MCV (79.4-94.8) fL MCH (25.6-32.2) pg MCHC (32.2-35.5) g/dL RDW (11.7-14.4) % Plt Count (182-369) x10^3/uL MPV (9.4-12.3) fL Gran % (34.0-71.1) % Immature Gran % (Auto) (0.001-0.429) % Nucleat RBC Rel Count (0.00-0.2) % Eos # (Auto) (0.04-0.36) x10^3/uL Immature Gran # (Auto) (0.001-0.031) x10^3u/L Absolute Lymphs (auto) (1.18-3.74) x10^3/uL Absolute Monos (auto) (0.24-0.86) x10^3/uL Absolute Nucleated RBC (0.00-0.012) x10^3u/L Lymphocytes % (19.3-51.7) % Monocytes % (4.7-12.5) % Eosinophils % (0.7-5.8) % Basophils % (0.1-1.2) % Absolute Granulocytes (1.56-6.13) x10^3/uL Basophils # (0.01-0.08) x10^3/uL Sodium (135-145) mmol/L Potassium (3.5-5.1) mmol/L Chloride (98-107) mmol/L Carbon Dioxide (22-30) mmol/L Anion Gap (5-15) MEQ/L BUN (7-17) mg/dL Creatinine (0.52-1.04) mg/dL Estimated GFR ML/MIN Glucose (74-106) mg/dL POC Glucometer 160 H 200 H (74 to 106) mg/dL Calcium (8.4-10.2) mg/dL Total Bilirubin (0.2-1.3) mg/dL AST (14-36) U/L ALT (0-35) U/L Alkaline Phosphatase (38-126) U/L Serum Total Protein (6.3-8.2) g/dL Albumin (3.5-5.0) g/dL 07/22/24 07/23/24 07/23/24 Range/Units 21:09 04:30 04:30 WBC 7.2 (3.98-10.04) x10^3/uL RBC 3.15 L (3.93-5.22) x10^6/uL Hgb 9.2 L (11.2-15.7) g/dL Hct 28.6 L (34.1-44.9) % MCV 90.8 (79.4-94.8) fL MCH 29.2 (25.6-32.2) pg MCHC 32.2 (32.2-35.5) g/dL RDW 14.0 (11.7-14.4) % Plt Count 211 (182-369) x10^3/uL MPV 10.7 (9.4-12.3) fL Gran % 64.1 (34.0-71.1) % Immature Gran % (Auto) 0.6 H (0.001-0.429) % Nucleat RBC Rel Count 0.0 (0.00-0.2) % Eos # (Auto) 0.29 (0.04-0.36) x10^3/uL Immature Gran # (Auto) 0.04 H (0.001-0.031) x10^3u/L Absolute Lymphs (auto) 1.49 (1.18-3.74) x10^3/uL Absolute Monos (auto) 0.71 (0.24-0.86) x10^3/uL Absolute Nucleated RBC 0.00 (0.00-0.012) x10^3u/L Lymphocytes % 20.8 (19.3-51.7) % Monocytes % 9.9 (4.7-12.5) % Eosinophils % 4.0 (0.7-5.8) % Basophils % 0.6 (0.1-1.2) % Absolute Granulocytes 4.60 (1.56-6.13) x10^3/uL Basophils # 0.04 (0.01-0.08) x10^3/uL Sodium 138 (135-145) mmol/L Potassium 4.3 (3.5-5.1) mmol/L Chloride 108 H (98-107) mmol/L Carbon Dioxide 25 (22-30) mmol/L Anion Gap 9.9 (5-15) MEQ/L BUN 29 H (7-17) mg/dL Creatinine 1.25 H (0.52-1.04) mg/dL Estimated GFR 43.8 ML/MIN Glucose 123 H (74-106) mg/dL POC Glucometer 174 H (74 to 106) mg/dL Calcium 8.3 L (8.4-10.2) mg/dL Total Bilirubin 0.50 (0.2-1.3) mg/dL AST 39 H (14-36) U/L ALT 25 (0-35) U/L Alkaline Phosphatase 81 (38-126) U/L Serum Total Protein 5.9 L (6.3-8.2) g/dL Albumin 3.0 L (3.5-5.0) g/dL 07/23/24 Range/Units 07:05 WBC (3.98-10.04) x10^3/uL RBC (3.93-5.22) x10^6/uL Hgb (11.2-15.7) g/dL Hct (34.1-44.9) % MCV (79.4-94.8) fL MCH (25.6-32.2) pg MCHC (32.2-35.5) g/dL RDW (11.7-14.4) % Plt Count (182-369) x10^3/uL MPV (9.4-12.3) fL Gran % (34.0-71.1) % Immature Gran % (Auto) (0.001-0.429) % Nucleat RBC Rel Count (0.00-0.2) % Eos # (Auto) (0.04-0.36) x10^3/uL Immature Gran # (Auto) (0.001-0.031) x10^3u/L Absolute Lymphs (auto) (1.18-3.74) x10^3/uL Absolute Monos (auto) (0.24-0.86) x10^3/uL Absolute Nucleated RBC (0.00-0.012) x10^3u/L Lymphocytes % (19.3-51.7) % Monocytes % (4.7-12.5) % Eosinophils % (0.7-5.8) % Basophils % (0.1-1.2) % Absolute Granulocytes (1.56-6.13) x10^3/uL Basophils # (0.01-0.08) x10^3/uL Sodium (135-145) mmol/L Potassium (3.5-5.1) mmol/L Chloride (98-107) mmol/L Carbon Dioxide (22-30) mmol/L Anion Gap (5-15) MEQ/L BUN (7-17) mg/dL Creatinine (0.52-1.04) mg/dL Estimated GFR ML/MIN Glucose (74-106) mg/dL POC Glucometer 140 H (74 to 106) mg/dL Calcium (8.4-10.2) mg/dL Total Bilirubin (0.2-1.3) mg/dL AST (14-36) U/L ALT (0-35) U/L Alkaline Phosphatase (38-126) U/L Serum Total Protein (6.3-8.2) g/dL Albumin (3.5-5.0) g/dL Micro Results-Entire Visit: Microbiology 07/18/24 20:27 Blood Culture - Final Blood 07/18/24 21:18 Gram Stain - Final Sputum - Expectorant Sputum Culture - Final Serratia Marcescens Accuchecks Date 07/23/24 - Radiology Exams Ordered Rad Exams-Entire Visit: Radiology Procedures Category Date Time Status ABDOMEN AND PELVIS W/0 CONTRAS [CT] Stat Exams 07/21/24 20:07 Completed Discharge Exam General Appearance: no apparent distress Neurologic Exam: alert, oriented x 3, cooperative Eye Exam: PERRL Ears, Nose, Throat Exam: normal ENT inspection Neck Exam: normal inspection Respiratory Exam: normal breath sounds, lungs clear Cardiovascular Exam: regular rate/rhythm, normal heart sounds Gastrointestinal/Abdomen Exam: soft, normal bowel sounds, other (mass on right abdomen with overlaying bruising) Pelvic Exam: deferred Rectal Exam: deferred Back Exam: normal inspection Extremity Exam: normal inspection Skin Exam: ecchymosis (right abdomen) Final Diagnosis/Problem List - Final Discharge Diagnosis/Problem (1) TATI (acute kidney injury) Current Visit: Yes Status: Acute Code(s): N17.9 - ACUTE KIDNEY FAILURE, UNSPECIFIED (2) URI (upper respiratory infection) Current Visit: Yes Status: Acute Code(s): J06.9 - ACUTE UPPER RESPIRATORY INFECTION, UNSPECIFIED (3) CHF (congestive heart failure) Current Visit: Yes Status: Chronic Code(s): I50.9 - HEART FAILURE, UNSPECIFIED (4) Cough Current Visit: Yes Status: Acute Code(s): R05.9 - COUGH, UNSPECIFIED (5) Difficulty swallowing solids Current Visit: Yes Status: Chronic Code(s): R13.10 - DYSPHAGIA, UNSPECIFIED (6) Hypothyroidism Current Visit: Yes Status: Chronic Code(s): E03.9 - HYPOTHYROIDISM, UNSPECIFIED (7) Atrial fibrillation Current Visit: Yes Status: Chronic Code(s): I48.91 - UNSPECIFIED ATRIAL FIBRILLATION (8) HTN (hypertension) Current Visit: Yes Status: Chronic Code(s): I10 - ESSENTIAL (PRIMARY) HYPERTENSION (9) Type II diabetes mellitus Current Visit: Yes Status: Chronic (10) Mass of abdomen Current Visit: Yes Status: Acute Code(s): R19.00 - INTRA-ABD AND PELVIC SWELLING, MASS AND LUMP, UNSP SITE - Discharge Disposition: Home, Self-Care Condition: Good Prescriptions: New Benzonatate 100 mg PO TIDPRN 30 Days #30 cap Cefuroxime Axetil [Cefuroxime] 250 mg PO BID 4 Days #8 tablet PANTOPRAZOLE 40 mg Tablet [Protonix 40MG Tablet] 40 mg PO DAILY 30 Days #30 tablet Continue Trazodone HCl 50 mg [Desyrel 50 mg] 50 mg PO HS Metformin HCl 500 mg [Glucophage 500 MG] 500 mg PO BID Levothyroxine Sodium 112 mcg PO DAILY Fluoxetine HCl 20 mg PO DAILY Oxybutynin Chloride 5 mg [Ditropan 5 MG] 5 mg PO BID Cetirizine HCl [Zyrtec] 10 mg PO HS Digoxin 0.125 mg Tablet [Lanoxin 0.125MG TABLET] 0.0625 mg PO DAILY Dapagliflozin Propanediol [Farxiga] 1 ea PO DAILY Metoprolol Tartrate 25 mg [Lopressor 25MG Tab] 25 mg PO DAILY Allopurinol 100 mg [Zyloprim 100 mg] 50 mg PO DAILY Ezetimibe 10 mg [Zetia 10 MG] 10 mg PO DAILY Vericiguat [Verquvo] 5 mg PO DAILY Discontinued Apixaban [Eliquis 5 mg Tablet] 5 mg PO BID #60 tablet Spironolactone 25 mg [Aldactone 25 MG] 12.5 mg PO DAILY Sacubitril/Valsartan [Entresto 24 mg-26 mg Tablet] 1 tab PO BID Furosemide 20 mg [Lasix 20 mg] 20 mg PO DAILY Additional Instructions: Follow up with surgeon's office after discharge. May see Dr. Hurley at [place] office Follow up with: KRISTIN BAKER [Primary Care Provider] - ALMAZ VANN [CONSULTING PHYSICIAN] - 08/05/24 3:00 pm RADHA HURLEY MD [ACTIVE STAFF] -
--- NOTE | 2024-07-23 11:50 | CONS ---
DATE OF CONSULTATION: 07/22/2024 HISTORY OF PRESENT ILLNESS: This is a 78-year-old female who has been here for a few days with coughing. Developed some swelling on the right side of her flank while she was here in the hospital. CAT scan, noncontrast, was done because she does have [id number] kidney disease and is on chronic diuretics for heart disease and CAT scan showed she had "an abdominal mass on her right flank." Surgery was consulted to evaluate. This is new to her. She just developed it over the last 1 to 2 days. It is tender. She says it does not seem to be getting much bigger today. Otherwise, she feels fine, is ambulating off oxygen and feels about her baseline. She is joined by all her family in the room. Vital signs have been stable. PAST MEDICAL HISTORY: Atrial fibrillation on Eliquis, which has been held for the past few days, as well as chronic kidney disease and heart disease. PAST SURGICAL HISTORY: Noncontributory. PHYSICAL EXAMINATION: GENERAL: She alert and oriented. Nonlabored breathing off oxygen. ABDOMEN: Soft. She does have tenderness and bulging in her right flank just above the iliac crest. There is no skin breakdown. There is no purulence or fluctuance noted. There is minimal bruising. LABORATORY: Her hemoglobin dropped about 1 g to the 9's yesterday but it seems to be stable around 10 for the most part. Otherwise, unremarkable lab findings. RADIOGRAPHIC: Findings as discussed. The CAT scan showed this abdominal mass in the right flank. Otherwise, no other abnormalities other than some constipation. ASSESSMENT: Suspected right oblique flank hematoma after coughing fit. PLAN: I reviewed the labs and the imaging, the patient's presentation and it looks to me like she has a flank hematoma from coughing while on blood thinners. Given the fact that this just newly developed over the last handful of days, I do not think this is a malignant mass that had gone unnoticed for this time. It is a weird place for her to develop a mass anyway. I would recommend holding her blood thinner for 2 weeks, applying an abdominal binder to the area, monitoring her for another day. If the mass is not growing and her hemoglobin stays stable, I think it is fine for her to go home. While continuing to hold blood thinner at home, we can evaluate her in the office to make sure there is nothing else to do for this "mass." If it does get bigger or there is concerning findings and is not improving, we can consider surgery or biopsy at that time but I do not believe that will be necessary. No emergent intervention required. Thank you for the consultation.
[2024-07-23 12:50] VITALS: BP 122/61; PULSE 73; TEMP 97.8; O2SAT 96
== END 2024-07-23 13:12 | disposition home or self-care (01) | DRG 684 ==
LOC: ED 19:14 → MED SURG 22:36 → OBSVTOIN 07-20 05:30
PROVIDERS: ADMIT Student in an Organized Health Care Education/Training Program; ATTEND Student in an Organized Health Care Education/Training Program
DX: N17.9 Acute kidney failure, unspecified (principal); I11.0 Hypertensive heart disease with heart failure; I50.9 Heart failure, unspecified; I48.91 Unspecified atrial fibrillation; E78.5 Hyperlipidemia, unspecified; I25.2 Old myocardial infarction; E11.9 Type 2 diabetes mellitus without complications; E03.9 Hypothyroidism, unspecified; J06.9 Acute upper respiratory infection, unspecified; R19.01 Right upper quadrant abdominal swelling, mass and lump; R05.9 Cough, unspecified; R13.10 Dysphagia, unspecified; Z79.01 Long term (current) use of anticoagulants; Z79.899 Other long term (current) drug therapy; Z95.0 Presence of cardiac pacemaker
CPT/HCPCS: 0241U; 36000; 36415; 71045; 71046; 74176; 80048; 80053; 80162; 82947; 83036; 83605; 83880; 84145; 84443; 85014; 85018; 85025; 85027; 87040; 87070; 87077; 87186; 93005; 93041; 96365; 96367; 96374; 99285; G0378; Q3014; J0456; J0696; J1817; J1940; L0625; A9270-GY

== ENCOUNTER 2024-08-04 06:05 | Observation (INO) | payer MEDICARE ==
--- NOTE | 2024-08-04 06:41 | ERPHSYRPT ---
- History of Present Illness Source: patient, family Exam Limitations: no limitations Patient Subjective Stated Complaint: pt states that she has been coughing since she left here. pt states that she is coughing up stuff and swollowing it. pt states it is upsetting her stomach Triage Nursing Assessment: pt came into the er via wheelchair; pt transfer to cot per self; pt is axo x3; c/o cough; pt denies pain; clear lung sounds in all lobes; dry hacking cough present; skin PDW; no respiratory distress present; vitals wnl Timing/Duration: day(s) (Constant coughing for the last several days after discharge from recent hospitalization), worse Severity: moderate Modifying Factors: Improves With: movement, other (Worsens with activity) Associated Symptoms: nausea, shortness of breath, loss of appetite, weakness, No abdominal pain, No chest pain Hx Tetanus, Diphtheria Vaccination/Date Given: No Hx Influenza Vaccination/Date Given: No (unsure) Hx Pneumococcal Vaccination/Date Given: Yes Immunizations Up to Date: No <GATO GARY - Last Filed: 08/04/24 06:46> <KIMBERLY ISAACS - Last Filed: 08/04/24 08:35> - History of Present Illness Time Seen by Provider: 08/04/24 06:20 Physician History: This is an 79-year-old white female patient who presents with constant coughing since her discharge from the hospital approximately 1-1/2 weeks ago. She is felt weak her appetite but both solids and liquids have decreased. She is not ambulating much because of the coughing and weakness. Patient denies chest pain. She has some shortness of breath especially with activity. She has been coughing up sputum and swallowing which is making her feel sick to her stomach. Patient does see a tack picker, Dr. Vann whom she saw approximately 2 weeks ago and has a follow-up appointment scheduled in 2 days. Patient has a history of hypothyroidism, hypertension, CHF on digoxin and has atrial fibrillation. She has a history of gout, gastroesophageal reflux disease and depression. Patient does not believe she is on any anticoagulation therapy and it does not appear that she is on it in review of her list of medication. I also reviewed her most recent inpatient admission here in our facility. (GATO GARY) Allergies/Adverse Reactions: No Known Drug Allergies Allergy (Verified 08/04/24 06:07) Home Medications: Fluoxetine HCl 20 mg PO DAILY 07/28/20 [History] Levothyroxine Sodium 112 mcg PO DAILY 07/28/20 [History] Metformin HCl 500 mg [Glucophage 500 MG] 500 mg PO BID 07/28/20 [History] Trazodone HCl 50 mg [Desyrel 50 mg] 50 mg PO HS 07/28/20 [History] Oxybutynin Chloride 5 mg [Ditropan 5 MG] 5 mg PO BID 07/29/20 [History] Cetirizine HCl [Zyrtec] 10 mg PO HS 08/16/20 [History] Dapagliflozin Propanediol [Farxiga] 1 ea PO DAILY 05/09/23 [History] Digoxin 0.125 mg Tablet [Lanoxin 0.125MG TABLET] 0.0625 mg PO DAILY 05/09/23 [History] Allopurinol 100 mg [Zyloprim 100 mg] 50 mg PO DAILY 07/18/24 [History] Ezetimibe 10 mg [Zetia 10 MG] 10 mg PO DAILY 07/18/24 [History] Metoprolol Tartrate 25 mg [Lopressor 25MG Tab] 25 mg PO DAILY 07/18/24 [H istory] Vericiguat [Verquvo] 5 mg PO DAILY 07/18/24 [History] Travel Risk - International Travel Have you traveled outside of the country in past 3 weeks: No - Emerging Infectious Disease Are you exhibiting symptoms associated with any current EIDs: Yes Symptoms: Cough: New Onset <GATO GARY - Last Filed: 08/04/24 06:46> - Review of Systems Constitutional: Weakness Eyes: No Symptoms Ears, Nose, & Throat: No Symptoms Respiratory: Cough, Dyspnea on Exertion (MONTEZ) Cardiac: No Symptoms, No Chest Pain Abdominal/Gastrointestinal: Nausea Genitourinary Symptoms: No Symptoms Musculoskeletal: No Symptoms Skin: No Symptoms Neurological: No Symptoms Psychological: No Symptoms Endocrine: No Symptoms Hematologic/Lymphatic: No Symptoms Immunological/Allergic: No Symptoms All Other Systems: Reviewed and Negative <GATO GARY - Last Filed: 08/04/24 06:46> - Past Medical History Pertinent Past Medical History: Yes Neurological History: No Pertinent History ENT History: No Pertinent History Cardiac History: Arrhythmia, High Cholesterol, Myocardial Infarction ([place]) Respiratory History: No Pertinent History, CHF Endocrine Medical History: Diabetes Type II, Hypothyroidism Musculoskeletal History: Arthritis GI Medical History: No Pertinent History History: Renal Disease Psycho-Social History: Anxiety, Depression Female Reproductive Disorders: No Pertinent History Other Medical History: A. fib. severe mitral valve regurgitation. - Past Surgical History Past Surgical History: Yes Neuro Surgical History: No Pertinent History Cardiac: CABG Respiratory: No Pertinent History Gastrointestinal: Appendectomy Genitourinary: No Pertinent History Musculoskeletal: Joint Replacement Female Surgical History: Hysterectomy, Tubal Ligation Other Surgical History: Right shoulder replacement and right knee replacement, ooperectomy (one ovary remains), Right rotator cuff repair, CABG x 3 2003 Significant Family History: no pertinent family hx - Social History Smoking Status: Never smoker Exposure to second hand smoke: No Drug Use: none Patient Lives Alone: No - Social Determinants of Health Will the patient participate in the screening: Yes Do you worry about a steady place to live?: No Do you have any problems with any of the following?: No known problems In the past 12 months,have you had to go without utilities?: No Transportation Issues: No Has anyone in your support network made you feel unsafe?: No Have you or anyone in your house had to go without enough: No <GATO GARY - Last Filed: 08/04/24 06:46> - Physical Exam General Appearance: no apparent distress, alert, obese Eye Exam: PERRL/EOMI, eyes nml inspection Ears, Nose, Throat Exam: normal ENT inspection, moist mucous membranes Neck Exam: normal inspection, non-tender, supple, full range of motion Respiratory Exam: normal breath sounds, lungs clear, airway intact, No chest tenderness, No respiratory distress Cardiovascular Exam: regular rate/rhythm, normal heart sounds, normal peripheral pulses Gastrointestinal/Abdomen Exam: soft, normal bowel sounds, No tenderness Pelvic Exam: not done Rectal Exam: not done Back Exam: normal inspection, normal range of motion, No CVA tenderness, No vertebral tenderness Extremity Exam: normal inspection, normal range of motion, pelvis stable Neurologic Exam: alert, oriented x 3, cooperative, supervisor throwing department II-XII nml as tested, sensation nml Skin Exam: ecchymosis (Right anterior lateral wall with ecchymosis and subcutaneous hematoma that is been present for few weeks secondary to coughing) Lymphatic Exam: No adenopathy SpO2 Interpretation: normal SpO2: 99 O2 Delivery: Room Air <GATO GARY - Last Filed: 08/04/24 06:46> - Nursing Vital Signs Nursing Vital Signs: Initial Vital Signs Pulse Rate 63 08/04/24 06:07 Respiratory Rate 18 08/04/24 06:07 Blood Pressure 110/53 08/04/24 06:07 O2 Sat by Pulse Oximetry 99 08/04/24 06:07 Pain Scale Pain Intensity 0 - Course Nursing assessment & vital signs reviewed: Yes <GATO GARY - Last Filed: 08/04/24 06:46> - Radiology Exams Chest X-ray Interpretation: Teleradiologist Report (Right lower lobe infiltrate) <KIMBERLY ISAACS - Last Filed: 08/04/24 08:35> Ordered Tests: Active Orders 24 hr Category Date Time Status Security Screener STAT Care 08/04/24 06:33 Active EKG-ER Only STAT Care 08/04/24 06:32 Active IV Insertion STAT Care 08/04/24 06:21 Active Pulse Oximetry (ED) STAT Care 08/04/24 06:32 Active CHEST 1 VIEW (PORTABLE) Stat Exams 08/04/24 06:33 Taken BLOOD CULTURE Stat Lab 08/04/24 08:04 Ordered CBC W DIFF Stat Lab 08/04/24 06:40 Completed CMP Stat Lab 08/04/24 06:40 Completed D-DIMER QUANTITATIVE Stat Lab 08/04/24 06:40 Completed NT PRO BNPII Stat Lab 08/04/24 06:40 Completed PROTIME WITH INR Stat Lab 08/04/24 06:40 Completed TROPONIN Q4H Lab 08/04/24 06:40 Completed TROPONIN Q4H Lab 08/04/24 10:45 Ordered TROPONIN Q4H Lab 08/04/24 14:45 Ordered TSH [TSH, 3RD Generation] Stat Lab 08/04/24 06:40 Completed Transfer Order Routine Transfer 08/04/24 Ordered Medication Summary Generic Name Dose Route Start Last Admin Trade Name Freq PRN Reason Stop Dose Admin Ceftriaxone Sodium 2 gm in 100 mls @ 200 mls/hr 08/04/24 08:05 08/04/24 08:17 Rocephin 2 Gm/100 Ml Nacl IV 08/04/24 08:34 200 mls/hr STAT ONE 200 mls/hr Administration Azithromycin 500 mg in 250 mls @ 250 mls/hr 08/04/24 08:05 Zithromax 500 Mg/ 250 Ml Nacl Premix IV 08/04/24 09:04 STAT STA Discontinued Medications Generic Name Dose Route Start Last Admin Trade Name Almita PRN Reason Stop Dose Admin Furosemide 20 mg 08/04/24 08:02 08/04/24 08:23 Furosemide 20 Mg/Vial IV 08/04/24 08:03 Not Given ONCE STA Furosemide Confirm 08/04/24 08:15 Furosemide 40 Mg/4 Ml Vial Administered 08/04/24 08:16 Dose 40 mg .ROUTE .STK-MED ONE Furosemide 20 mg 08/04/24 08:18 08/04/24 08:19 Furosemide 40 Mg/4 Ml Vial IV 08/04/24 08:19 20 mg STAT ONE Administration Ceftriaxone Sodium Confirm 08/04/24 08:15 Rocephin 2 Gm/100 Ml Nacl Administered 08/04/24 08:16 Dose 2 gm in 100 mls @ ud IV .STK-MED ONE Lab/Rad Data: Laboratory Result Diagrams 08/04/24 06:40 08/04/24 06:40 Laboratory Results 08/04/24 08/04/24 08/04/24 Range/Units 06:45 06:40 06:40 WBC (3.98-10.04) x10^3/uL RBC (3.93-5.22) x10^6/uL Hgb (11.2-15.7) g/dL Hct (34.1-44.9) % MCV (79.4-94.8) fL MCH (25.6-32.2) pg MCHC (32.2-35.5) g/dL RDW (11.7-14.4) % Plt Count (182-369) x10^3/uL MPV (9.4-12.3) fL Gran % (34.0-71.1) % Immature Gran % (Auto) (0.001-0.429) % Nucleat RBC Rel Count (0.00-0.2) % Eos # (Auto) (0.04-0.36) x10^3/uL Immature Gran # (Auto) (0.001-0.031) x10^3u/L Absolute Lymphs (auto) (1.18-3.74) x10^3/uL Absolute Monos (auto) (0.24-0.86) x10^3/uL Absolute Nucleated RBC (0.00-0.012) x10^3u/L Lymphocytes % (19.3-51.7) % Monocytes % (4.7-12.5) % Eosinophils % (0.7-5.8) % Basophils % (0.1-1.2) % Absolute Granulocytes (1.56-6.13) x10^3/uL Basophils # (0.01-0.08) x10^3/uL PT (9.4-12.5) SECONDS INR (0.8-3.0) D-Dimer (0.0-0.50) mg/L Sodium (135-145) mmol/L Potassium (3.5-5.1) mmol/L Chloride (98-107) mmol/L Carbon Dioxide (22-30) mmol/L Anion Gap (5-15) MEQ/L BUN (7-17) mg/dL Creatinine (0.52-1.04) mg/dL Estimated GFR ML/MIN Glucose (74-106) mg/dL Calcium (8.4-10.2) mg/dL Total Bilirubin (0.2-1.3) mg/dL AST (14-36) U/L ALT (0-35) U/L Alkaline Phosphatase (38-126) U/L Troponin I (0.000-0.033) ng/mL NT-Pro-B Natriuret Pep (<300) pg/mL Serum Total Protein (6.3-8.2) g/dL Albumin (3.5-5.0) g/dL Free T4 2.17 (0.78-2.19) ng/dL TSH 3rd Generation 8.450 H (0.470-4.680) mIU/L Digoxin (0.8-1.9) ng/mL Influenza Type A Ag NEGATIVE (NEGATIVE) Influenza Type B Ag NEGATIVE (NEGATIVE) RSV (PCR) NEGATIVE (NEGATIVE) SARS-CoV-2 (PCR) NEGATIVE (NEGATIVE) 08/04/24 08/04/24 08/04/24 Range/Units 06:40 06:40 06:40 WBC (3.98-10.04) x10^3/uL RBC (3.93-5.22) x10^6/uL Hgb (11.2-15.7) g/dL Hct (34.1-44.9) % MCV (79.4-94.8) fL MCH (25.6-32.2) pg MCHC (32.2-35.5) g/dL RDW (11.7-14.4) % Plt Count (182-369) x10^3/uL MPV (9.4-12.3) fL Gran % (34.0-71.1) % Immature Gran % (Auto) (0.001-0.429) % Nucleat RBC Rel Count (0.00-0.2) % Eos # (Auto) (0.04-0.36) x10^3/uL Immature Gran # (Auto) (0.001-0.031) x10^3u/L Absolute Lymphs (auto) (1.18-3.74) x10^3/uL Absolute Monos (auto) (0.24-0.86) x10^3/uL Absolute Nucleated RBC (0.00-0.012) x10^3u/L Lymphocytes % (19.3-51.7) % Monocytes % (4.7-12.5) % Eosinophils % (0.7-5.8) % Basophils % (0.1-1.2) % Absolute Granulocytes (1.56-6.13) x10^3/uL Basophils # (0.01-0.08) x10^3/uL PT 12.1 (9.4-12.5) SECONDS INR 1.12 (0.8-3.0) D-Dimer 2.06 H* (0.0-0.50) mg/L Sodium (135-145) mmol/L Potassium (3.5-5.1) mmol/L Chloride (98-107) mmol/L Carbon Dioxide (22-30) mmol/L Anion Gap (5-15) MEQ/L BUN (7-17) mg/dL Creatinine (0.52-1.04) mg/dL Estimated GFR ML/MIN Glucose (74-106) mg/dL Calcium (8.4-10.2) mg/dL Total Bilirubin (0.2-1.3) mg/dL AST (14-36) U/L ALT (0-35) U/L Alkaline Phosphatase (38-126) U/L Troponin I < 0.012 (0.000-0.033) ng/mL NT-Pro-B Natriuret Pep 13938 (<300) pg/mL Serum Total Protein (6.3-8.2) g/dL Albumin (3.5-5.0) g/dL Free T4 (0.78-2.19) ng/dL TSH 3rd Generation (0.470-4.680) mIU/L Digoxin 0.7 L (0.8-1.9) ng/mL Influenza Type A Ag (NEGATIVE) Influenza Type B Ag (NEGATIVE) RSV (PCR) (NEGATIVE) SARS-CoV-2 (PCR) (NEGATIVE) 08/04/24 08/04/24 Range/Units 06:40 06:40 WBC 6.7 (3.98-10.04) x10^3/uL RBC 3.64 L (3.93-5.22) x10^6/uL Hgb 10.6 L (11.2-15.7) g/dL Hct 34.3 (34.1-44.9) % MCV 94.2 (79.4-94.8) fL MCH 29.1 (25.6-32.2) pg MCHC 30.9 L (32.2-35.5) g/dL RDW 17.7 H (11.7-14.4) % Plt Count 325 (182-369) x10^3/uL MPV 10.6 (9.4-12.3) fL Gran % 64.7 (34.0-71.1) % Immature Gran % (Auto) 0.4 (0.001-0.429) % Nucleat RBC Rel Count 0.0 (0.00-0.2) % Eos # (Auto) 0.33 (0.04-0.36) x10^3/uL Immature Gran # (Auto) 0.03 (0.001-0.031) x10^3u/L Absolute Lymphs (auto) 1.30 (1.18-3.74) x10^3/uL Absolute Monos (auto) 0.63 (0.24-0.86) x10^3/uL Absolute Nucleated RBC 0.00 (0.00-0.012) x10^3u/L Lymphocytes % 19.4 (19.3-51.7) % Monocytes % 9.4 (4.7-12.5) % Eosinophils % 4.9 (0.7-5.8) % Basophils % 1.2 (0.1-1.2) % Absolute Granulocytes 4.34 (1.56-6.13) x10^3/uL Basophils # 0.08 (0.01-0.08) x10^3/uL PT (9.4-12.5) SECONDS INR (0.8-3.0) D-Dimer (0.0-0.50) mg/L Sodium 141 (135-145) mmol/L Potassium 4.8 (3.5-5.1) mmol/L Chloride 107 (98-107) mmol/L Carbon Dioxide 20 L (22-30) mmol/L Anion Gap 18.4 H (5-15) MEQ/L BUN 44 H (7-17) mg/dL Creatinine 1.56 H (0.52-1.04) mg/dL Estimated GFR 33.4 ML/MIN Glucose 129 H (74-106) mg/dL Calcium 9.4 (8.4-10.2) mg/dL Total Bilirubin 1.40 H (0.2-1.3) mg/dL AST 49 H (14-36) U/L ALT 44 H (0-35) U/L Alkaline Phosphatase 113 (38-126) U/L Troponin I (0.000-0.033) ng/mL NT-Pro-B Natriuret Pep (<300) pg/mL Serum Total Protein 6.3 (6.3-8.2) g/dL Albumin 3.5 (3.5-5.0) g/dL Free T4 (0.78-2.19) ng/dL TSH 3rd Generation (0.470-4.680) mIU/L Digoxin (0.8-1.9) ng/mL Influenza Type A Ag (NEGATIVE) Influenza Type B Ag (NEGATIVE) RSV (PCR) (NEGATIVE) SARS-CoV-2 (PCR) (NEGATIVE) - Progress Progress: unchanged <GATO GARY - Last Filed: 08/04/24 06:46> - Progress Progress: improved Discussed with Dr.: Other (Dr. Crane accepted admission at 8:17 AM) Counseled pt/family regarding: lab results, diagnosis, rad results <KIMBERLY ISAACS - Last Filed: 08/04/24 08:35> - Progress Progress Note: 08/04/24 06:42 My medical decision making and the assignment of at least moderate complexity and possible high complexity to this patient's medical issue today and based upon review of the past medical history, review of the patient's medication list, reviewed patient drug allergy list, history present illness and physical findings on examination. The workup includes placement of intravenous line, CBC, CMP, PT/INR, digoxin level, urinalysis, chest x-ray, twelve-lead EKG, viral swabs, troponin, D-dimer level, BNP level. Differential diagnosis includes but is not limited to pneumonia, arrhythmia, urinary tract infection, myocardial infarction, COPD exacerbation, CHF exacerbation, electrolyte abnormalities The care of this patient is being transferred to Dr. Kimberly Isaacs at shift change. He will follow-up on pending study results and make final disposition. (GATO GARY) Patient endorsed to Dr. Isaacs at change of shift. I received patient at approximately [address] Isaacs advised to follow-up on pending studies. Chest x- ray reviewed. Formal read pending however there appears to be a right lower lobe opacity. Blood cultures obtained. Antibiotics initiated. In light of patient's symptoms coughing episodes pertussis is on the differential. Pertussis PCR ordered. Results pending. Patient placed in isolation in the interim. In light of the pneumonia patient receiving Rocephin and azithromycin. Azithromycin will cover pertussis. Patient states that her tetanus is not updated. Will update patient's tetanus as Adacel will provide pertussis immunization. Patient has known hypothyroidism. She has been taking her medications as indicated. However based on patient's most recent TSH thyroid medication adjustment may be indicated. Patient's BNP observed to be elevated at 16,000. Patient advised that she has a history of CHF and is not been taking her Lasix regularly. Patient did not take her Lasix yesterday as she advises her blood pressure was 90s systolic. Patient's blood pressure appears to be within her normal range today. Lasix ordered and administered. D-dimer positive. Due to chronic renal insufficiency and GFR of 13 CTA chest not performed however patient is currently on Eliquis for chronic atrial fibrillation. VQ scan upon admission may be indicated. No indication for additional anticoagulation at this time. Patient also reports she has not been able to sleep well. She sleeps an average of 2 hours per night. Insomnia included in her diagnosis. This was conveyed to receiving physician. Patient appears to be resting well at this time. No indication for further workup through the ED. Patient will be admitted for further evaluation and treatment. Plan of care discussed with patient and her who is at the bedside. They agree to admission to [facility] for further evaluation and treatment. They voiced no other complaints or concerns at this time. Portions of this note were created with voice recognition technology. There may be grammatical, spelling, punctuation or sound alike errors 08/04/24 08:25 (KIMBERLY ISAACS) Medical Desision Making - Independent Historian Additional History obtained from: Spouse <GATO GARY - Last Filed: 08/04/24 06:46> - Departure Departure Disposition: Observation Critical Care Time: No <GATO GARY - Last Filed: 08/04/24 06:46> <KIMBERLY ISAACS - Last Filed: 08/04/24 08:35> - Departure Clinical Impression: Cough, Shortness of breath, Elevated brain natriuretic peptide (BNP) level, Pneumonia, Hypothyroidism, Chronic renal insufficiency, Chronic atrial fibrillation, Generalized weakness, Insomnia, Decreased appetite, High anion gap metabolic acidosis Condition: Stable Referrals: KRISTIN BAKER [NON-STAFF PHY W/O PRIVILEGES] - Follow up/PCP as directed
[2024-08-04 06:48] LABS: Absolute Neutrophil Ct (ANC) 4.34 x10^3/uL (1.56-6.13); BASOPHIL % 1.2 % (0.1-1.2); Basophil (Absolute #) 0.08 x10^3/uL (0.01-0.08); Eosinophil % 4.9 % (0.7-5.8); Eosinophil (Absolute #) 0.33 x10^3/uL (0.04-0.36); Hematocrit 34.3 % (34.1-44.9); Hemoglobin 10.6 g/dL (11.2-15.7); IMMATURE GRAN # 0.03 x10^3u/L (0.001-0.031); IMMATURE GRAN % 0.4 % (0.001-0.429); Lymphocytes % 19.4 % (19.3-51.7); Mean Cell Volume 94.2 fL (79.4-94.8); Mean Corpuscular Hemoglobin 29.1 pg (25.6-32.2); Mean Corpuscular Hgb Concent. 30.9 g/dL (32.2-35.5); Mean Platelet Volume 10.6 fL (9.4-12.3); Monocyte (Absolute #) 0.63 x10^3/uL (0.24-0.86); Monocytes % 9.4 % (4.7-12.5); Neutrophil % 64.7 % (34.0-71.1); Platelet Count 325 x10^3/uL (182-369); Red Blood Count 3.64 x10^6/uL (3.93-5.22); Red Cell Distribution Width 17.7 % (11.7-14.4); White Blood Count 6.7 x10^3/uL (3.98-10.04)
[2024-08-04 07:03] LABS: ALBUMIN 3.5 g/dL (3.5-5.0); ANION GAP 18.4 MEQ/L (5-15); BILIRUBIN,TOTAL 1.4 mg/dL (0.2-1.3); Calcium 9.4 mg/dL (8.4-10.2); Creatinine 1 1.56 mg/dL (0.52-1.04); EST GLOMERULAR FILTRATION RATE 33.4 ML/MIN; Potassium 4.8 mmol/L (3.5-5.1); Total Protein 6.3 g/dL (6.3-8.2)
[2024-08-04 07:09] LABS: INR 1.12 (0.8-3.0); PROTIME 12.1 SECONDS (9.4-12.5)
[2024-08-04 07:13] LABS: D-DIMER QUANTITATIVE 2.06 mg/L (0.0-0.50)
[2024-08-04 07:16] LABS: NT PRO BNPII 16800 pg/mL (<300); TROPONIN < 0.012 ng/mL (0.000-0.033)
[2024-08-04 07:22] LABS: INFLUENZA A NEGATIVE (NEGATIVE); INFLUENZA B NEGATIVE (NEGATIVE); RESPIRATORY SYNCTIAL VIRUS NEGATIVE (NEGATIVE); SARS-CoV-2 Xpert Express NEGATIVE (NEGATIVE)
[2024-08-04] MEDS ORDERED: Lasix 40 MG/4 ML ONE (08:15)
[2024-08-04] MEDS ORDERED: ROCEPHIN 2 GM/100 ML NACL 2 GM/100 ML IVPB IV ONE (08:15)
[2024-08-04] MEDS: ROCEPHIN 2 GM/100 ML NACL 2 GM/100 ML IVPB IV ONE (08:17)
[2024-08-04] MEDS: Lasix 40 MG/4 ML IV ONE (08:19)
[2024-08-04] MEDS: Lasix 20 MG/2 ML IV STA (08:23)
[2024-08-04] MEDS: Zithromax 500 MG/ 250 ML NaCl Premix 500 MG/250 ML IVPB IV STA (08:25)
[2024-08-04] MEDS ORDERED: Zithromax 500 MG/ 250 ML NaCl Premix 500 MG/250 ML IVPB IV ONE (08:27)
[2024-08-04] MEDS ORDERED: Adacel Vial IM ONE (08:32)
[2024-08-04] MEDS: Adacel Vial IM ONE (08:32)
--- NOTE | 2024-08-04 08:53 | XRAY ---
Indication: Cough. Comparison: July 21, 2024 Portable chest unchanged again hyperinflated with left perihilar postsurgical changes and left infrahilar subsegmental atelectasis/scarring. Heart remains borderline enlarged. Bony thorax intact again with osteopenia, degenerative changes, sternotomy wires, and right shoulder arthroplasty. Impression: Continued nonacute chest with chronic features.
--- NOTE | 2024-08-04 12:16 | PCM.HP ---
History of Present Illness - Chief Complaint Chief Complaint: pneumonia Date: 08/04/24 History of Present Illness: is a 78 year old female with PMHX of CHF, afib (on eliquis), hyperlipidemia, OK, TYpe II DM, HTN, CKD, hypothyroidism, OA, anxiety, and depression who presented to ED 08/04/24 with complaints of an uncontrollable cough. Patient was recently admitted 07/18/24- 07/23/24 with similar complaints. I have reviewed this documentation. At that visit CXR was negative and sputum culture with serratia marcescens. She received treatment with Ceftin at that time. She also developed a hematoma to her right abdomen during that visit for which surgery was consulted and felt this was secondary to her coughing - no surgical intervention. Eliqus was held x 2 weeks and later resumed at a lower dose by her Orthotic/Prosthetic Practitioner Dr. Vann. Patient states that her symptoms have never resolved and that nothing has made her cough better. This has caused her to have some nausea, poor appetite, and a poor energy level. She reports an average of about 2 hours a night of sleep. She also reports feeling "itchy" all over. Denies fever, sob, cp, abdominal pain, LONGORIA, dizziness, N/V/D. Upon arrival to ED, vitals signs stable. CXR with non-acute findings. Labs remarkable for hgb at 10.6, DDimer elevated at 2.06, Co2 at 20, Gap 18.4, BUN 44, creat at 1.56, Tbili at 1.40, ASt at 49, [place] 44[place] [address], and TSH 8.450. Respiratory panel is negative. Patient was given Rocephin/Azithromycin, lasix, and adacel vaccine. Pertussis PCR ordered and pending. - Review of Systems Constitutional: Fatigue, Weakness Eyes: No Symptoms Ears, Nose, & Throat: No Symptoms Respiratory: Cough, Short Of Breath Cardiac: No Symptoms Abdominal/Gastrointestinal: Nausea, Appetite Changes Genitourinary Symptoms: No Symptoms Musculoskeletal: No Symptoms Skin: Pruritis Neurological: No Symptoms Psychological: Other (insomnia ) Endocrine: No Symptoms Hematologic/Lymphatic: No Symptoms Immunological/Allergic: No Symptoms Medications & Allergies Home Medications: Home Medication List Fluoxetine HCl 20 mg PO DAILY 07/28/20 [History Confirmed 08/04/24] Levothyroxine Sodium 112 mcg PO DAILY 07/28/20 [History Confirmed 08/04/24] Metformin HCl 500 mg [Glucophage 500 MG] 500 mg PO BID 07/28/20 [History Confirmed 08/04/24] Trazodone HCl 50 mg [Desyrel 50 mg] 50 mg PO HS 07/28/20 [History Confirmed 08/04/24] Oxybutynin Chloride 5 mg [Ditropan 5 MG] 5 mg PO BID 07/29/20 [History Confirmed 08/04/24] Cetirizine HCl [Zyrtec] 10 mg PO HS 08/16/20 [History Confirmed 08/04/24] Dapagliflozin Propanediol [Farxiga] 1 ea PO DAILY 05/09/23 [History Confirmed 08/04/24] Digoxin 0.125 mg Tablet [Lanoxin 0.125MG TABLET] 0.0625 mg PO DAILY 05/09/23 [History Confirmed 08/04/24] Allopurinol 100 mg [Zyloprim 100 mg] 50 mg PO DAILY 07/18/24 [History Confirmed 08/04/24] Ezetimibe 10 mg [Zetia 10 MG] 10 mg PO DAILY 07/18/24 [History Confirmed 08/04/24] Metoprolol Tartrate 25 mg [Lopressor 25MG Tab] 25 mg PO DAILY 07/18/24 [History Confirmed 08/04/24] Vericiguat [Verquvo] 5 mg PO DAILY 07/18/24 [History Confirmed 08/04/24] PANTOPRAZOLE 40 mg Tablet [Protonix 40MG Tablet] 40 mg PO DAILY 30 Days #30 tablet 07/23/24 [Rx Confirmed 08/04/24] Apixaban [Eliquis 2.5 mg Tablet] 2.5 mg PO BID 08/04/24 [History Confirmed 08/04/24] Furosemide 20 mg [Lasix 20 mg] 20 mg PO DAILY 08/04/24 [History Confirmed 08/04/24] Allergies/Adverse Reactions: Allergies Allergy/AdvReac Type Severity Reaction Status Date / Time No Known Drug Allergies Allergy Verified 08/04/24 09:46 - Past Medical History Past Medical History: Yes Neurological History: No Pertinent History ENT History: No Pertinent History Cardiac History: Arrhythmia, Congestive Heart Failure, High Cholesterol, Hypertension, Myocardial Infarction (OK) Respiratory History: No Pertinent History, CHF Endocrine Medical History: Diabetes Type II, Hypothyroidism Musculoskelatal History: Arthritis GI Medical History: No Pertinent History History: Renal Disease Pyscho-Social History: Anxiety, Depression Reproductive Disorders: No Pertinent History Comment: A. fib. severe mitral valve regurgitation. - Past Surgical History Past Surgical History: Yes Neuro Surgical History: No Pertinent History Cardiac History: CABG Respiratory Surgery: No Pertinent History GI Surgical History: Appendectomy Genitourinary Surgical Hx: No Pertinent History Musculskeletal Surgical Hx: Joint Replacement Female Surgical History: Hysterectomy, Tubal Ligation Other Surgical History: Right shoulder replacement and right knee replacement, ooperectomy (one ovary remains), Right rotator cuff repair, CABG x 3 2003 Significant Family History: heart disease, kidney/renal disease, stroke - Social History Smoking Status: Never smoker Exposure to second hand smoke: No Alcohol: None Drug Use: none - Social Determinants of Health Will the patient participate in the screening: Yes Do you worry about a steady place to live?: No Do you have any problems with any of the following?: No known problems In the past 12 months,have you had to go without utilities?: No Have you or anyone in your house had to go without enough: No Transportation Issues: No Has anyone in your support network made you feel unsafe?: No Does the patient want assistance with any of the above?: No - Physical Exam Vital Signs: Vital Signs - 24 hr Temp Pulse Resp BP BP Pulse Ox 08/04/24 11:49 97.9 F 75 15 113/52 98 08/04/24 10:04 97.5 F 64 18 111/53 94 L 08/04/24 10:00 60 95 08/04/24 09:30 98 08/04/24 09:20 98 08/04/24 09:10 99 08/04/24 09:01 65 18 118/52 83 L 08/04/24 08:30 125/58 83 L 08/04/24 08:00 64 5 L 138/61 97 08/04/24 07:30 65 18 118/60 99 08/04/24 07:00 69 17 109/63 97 08/04/24 06:46 99 08/04/24 06:36 96 08/04/24 06:30 72 20 112/50 96 08/04/24 06:08 97.7 F 66 18 110/53 99 08/04/24 06:07 63 18 110/53 99 General Appearance: no apparent distress Neurologic Exam: alert, oriented x 3, cooperative Eye Exam: PERRL/EOMI Ears, Nose, Throat Exam: normal ENT inspection Neck Exam: normal inspection Respiratory Exam: normal breath sounds, lungs clear Cardiovascular Exam: regular rate/rhythm, normal heart sounds, murmur Gastrointestinal/Abdomen Exam: soft, normal bowel sounds Pelvic Exam: not done Rectal Exam: deferred Back Exam: normal inspection Extremity Exam: normal inspection Skin Exam: normal color Results - Labs Lab/Micro Results: Lab Results-Last 24 Hours 08/04/24 08/04/24 08/04/24 Range/Units 06:40 06:40 06:40 WBC 6.7 (3.98-10.04) x10^3/uL RBC 3.64 L (3.93-5.22) x10^6/uL Hgb 10.6 L (11.2-15.7) g/dL Hct 34.3 (34.1-44.9) % MCV 94.2 (79.4-94.8) fL MCH 29.1 (25.6-32.2) pg MCHC 30.9 L (32.2-35.5) g/dL RDW 17.7 H (11.7-14.4) % Plt Count 325 (182-369) x10^3/uL MPV 10.6 (9.4-12.3) fL Gran % 64.7 (34.0-71.1) % Immature Gran % (Auto) 0.4 (0.001-0.429) % Nucleat RBC Rel Count 0.0 (0.00-0.2) % Eos # (Auto) 0.33 (0.04-0.36) x10^3/uL Immature Gran # (Auto) 0.03 (0.001-0.031) x10^3u/L Absolute Lymphs (auto) 1.30 (1.18-3.74) x10^3/uL Absolute Monos (auto) 0.63 (0.24-0.86) x10^3/uL Absolute Nucleated RBC 0.00 (0.00-0.012) x10^3u/L Lymphocytes % 19.4 (19.3-51.7) % Monocytes % 9.4 (4.7-12.5) % Eosinophils % 4.9 (0.7-5.8) % Basophils % 1.2 (0.1-1.2) % Absolute Granulocytes 4.34 (1.56-6.13) x10^3/uL Basophils # 0.08 (0.01-0.08) x10^3/uL PT 12.1 (9.4-12.5) SECONDS INR 1.12 (0.8-3.0) D-Dimer 2.06 H* (0.0-0.50) mg/L Sodium 141 (135-145) mmol/L Potassium 4.8 (3.5-5.1) mmol/L Chloride 107 (98-107) mmol/L Carbon Dioxide 20 L (22-30) mmol/L Anion Gap 18.4 H (5-15) MEQ/L BUN 44 H (7-17) mg/dL Creatinine 1.56 H (0.52-1.04) mg/dL Estimated GFR 33.4 ML/MIN Glucose 129 H (74-106) mg/dL POC Glucometer (74 to 106) mg/dL Calcium 9.4 (8.4-10.2) mg/dL Total Bilirubin 1.40 H (0.2-1.3) mg/dL AST 49 H (14-36) U/L ALT 44 H (0-35) U/L Alkaline Phosphatase 113 (38-126) U/L Troponin I (0.000-0.033) ng/mL NT-Pro-B Natriuret Pep (<300) pg/mL Serum Total Protein 6.3 (6.3-8.2) g/dL Albumin 3.5 (3.5-5.0) g/dL Free T4 (0.78-2.19) ng/dL TSH 3rd Generation (0.470-4.680) mIU/L Digoxin (0.8-1.9) ng/mL Influenza Type A Ag (NEGATIVE) Influenza Type B Ag (NEGATIVE) RSV (PCR) (NEGATIVE) SARS-CoV-2 (PCR) (NEGATIVE) 08/04/24 08/04/24 08/04/24 Range/Units 06:40 06:40 06:40 WBC (3.98-10.04) x10^3/uL RBC (3.93-5.22) x10^6/uL Hgb (11.2-15.7) g/dL Hct (34.1-44.9) % MCV (79.4-94.8) fL MCH (25.6-32.2) pg MCHC (32.2-35.5) g/dL RDW (11.7-14.4) % Plt Count (182-369) x10^3/uL MPV (9.4-12.3) fL Gran % (34.0-71.1) % Immature Gran % (Auto) (0.001-0.429) % Nucleat RBC Rel Count (0.00-0.2) % Eos # (Auto) (0.04-0.36) x10^3/uL Immature Gran # (Auto) (0.001-0.031) x10^3u/L Absolute Lymphs (auto) (1.18-3.74) x10^3/uL Absolute Monos (auto) (0.24-0.86) x10^3/uL Absolute Nucleated RBC (0.00-0.012) x10^3u/L Lymphocytes % (19.3-51.7) % Monocytes % (4.7-12.5) % Eosinophils % (0.7-5.8) % Basophils % (0.1-1.2) % Absolute Granulocytes (1.56-6.13) x10^3/uL Basophils # (0.01-0.08) x10^3/uL PT (9.4-12.5) SECONDS INR (0.8-3.0) D-Dimer (0.0-0.50) mg/L Sodium (135-145) mmol/L Potassium (3.5-5.1) mmol/L Chloride (98-107) mmol/L Carbon Dioxide (22-30) mmol/L Anion Gap (5-15) MEQ/L BUN (7-17) mg/dL Creatinine (0.52-1.04) mg/dL Estimated GFR ML/MIN Glucose (74-106) mg/dL POC Glucometer (74 to 106) mg/dL Calcium (8.4-10.2) mg/dL Total Bilirubin (0.2-1.3) mg/dL AST (14-36) U/L ALT (0-35) U/L Alkaline Phosphatase (38-126) U/L Troponin I < 0.012 (0.000-0.033) ng/mL NT-Pro-B Natriuret Pep 60018 (<300) pg/mL Serum Total Protein (6.3-8.2) g/dL Albumin (3.5-5.0) g/dL Free T4 (0.78-2.19) ng/dL TSH 3rd Generation 8.450 H (0.470-4.680) mIU/L Digoxin 0.7 L (0.8-1.9) ng/mL Influenza Type A Ag (NEGATIVE) Influenza Type B Ag (NEGATIVE) RSV (PCR) (NEGATIVE) SARS-CoV-2 (PCR) (NEGATIVE) 08/04/24 08/04/24 08/04/24 Range/Units 06:40 06:45 08:50 WBC (3.98-10.04) x10^3/uL RBC (3.93-5.22) x10^6/uL Hgb (11.2-15.7) g/dL Hct (34.1-44.9) % MCV (79.4-94.8) fL MCH (25.6-32.2) pg MCHC (32.2-35.5) g/dL RDW (11.7-14.4) % Plt Count (182-369) x10^3/uL MPV (9.4-12.3) fL Gran % (34.0-71.1) % Immature Gran % (Auto) (0.001-0.429) % Nucleat RBC Rel Count (0.00-0.2) % Eos # (Auto) (0.04-0.36) x10^3/uL Immature Gran # (Auto) (0.001-0.031) x10^3u/L Absolute Lymphs (auto) (1.18-3.74) x10^3/uL Absolute Monos (auto) (0.24-0.86) x10^3/uL Absolute Nucleated RBC (0.00-0.012) x10^3u/L Lymphocytes % (19.3-51.7) % Monocytes % (4.7-12.5) % Eosinophils % (0.7-5.8) % Basophils % (0.1-1.2) % Absolute Granulocytes (1.56-6.13) x10^3/uL Basophils # (0.01-0.08) x10^3/uL PT (9.4-12.5) SECONDS INR (0.8-3.0) D-Dimer (0.0-0.50) mg/L Sodium (135-145) mmol/L Potassium (3.5-5.1) mmol/L Chloride (98-107) mmol/L Carbon Dioxide (22-30) mmol/L Anion Gap (5-15) MEQ/L BUN (7-17) mg/dL Creatinine (0.52-1.04) mg/dL Estimated GFR ML/MIN Glucose (74-106) mg/dL POC Glucometer (74 to 106) mg/dL Calcium (8.4-10.2) mg/dL Total Bilirubin (0.2-1.3) mg/dL AST (14-36) U/L ALT (0-35) U/L Alkaline Phosphatase (38-126) U/L Troponin I < 0.012 (0.000-0.033) ng/mL NT-Pro-B Natriuret Pep (<300) pg/mL Serum Total Protein (6.3-8.2) g/dL Albumin (3.5-5.0) g/dL Free T4 2.17 (0.78-2.19) ng/dL TSH 3rd Generation (0.470-4.680) mIU/L Digoxin (0.8-1.9) ng/mL Influenza Type A Ag NEGATIVE (NEGATIVE) Influenza Type B Ag NEGATIVE (NEGATIVE) RSV (PCR) NEGATIVE (NEGATIVE) SARS-CoV-2 (PCR) NEGATIVE (NEGATIVE) 08/04/24 Range/Units 11:16 WBC (3.98-10.04) x10^3/uL RBC (3.93-5.22) x10^6/uL Hgb (11.2-15.7) g/dL Hct (34.1-44.9) % MCV (79.4-94.8) fL MCH (25.6-32.2) pg MCHC (32.2-35.5) g/dL RDW (11.7-14.4) % Plt Count (182-369) x10^3/uL MPV (9.4-12.3) fL Gran % (34.0-71.1) % Immature Gran % (Auto) (0.001-0.429) % Nucleat RBC Rel Count (0.00-0.2) % Eos # (Auto) (0.04-0.36) x10^3/uL Immature Gran # (Auto) (0.001-0.031) x10^3u/L Absolute Lymphs (auto) (1.18-3.74) x10^3/uL Absolute Monos (auto) (0.24-0.86) x10^3/uL Absolute Nucleated RBC (0.00-0.012) x10^3u/L Lymphocytes % (19.3-51.7) % Monocytes % (4.7-12.5) % Eosinophils % (0.7-5.8) % Basophils % (0.1-1.2) % Absolute Granulocytes (1.56-6.13) x10^3/uL Basophils # (0.01-0.08) x10^3/uL PT (9.4-12.5) SECONDS INR (0.8-3.0) D-Dimer (0.0-0.50) mg/L Sodium (135-145) mmol/L Potassium (3.5-5.1) mmol/L Chloride (98-107) mmol/L Carbon Dioxide (22-30) mmol/L Anion Gap (5-15) MEQ/L BUN (7-17) mg/dL Creatinine (0.52-1.04) mg/dL Estimated GFR ML/MIN Glucose (74-106) mg/dL POC Glucometer 119 H (74 to 106) mg/dL Calcium (8.4-10.2) mg/dL Total Bilirubin (0.2-1.3) mg/dL AST (14-36) U/L ALT (0-35) U/L Alkaline Phosphatase (38-126) U/L Troponin I (0.000-0.033) ng/mL NT-Pro-B Natriuret Pep (<300) pg/mL Serum Total Protein (6.3-8.2) g/dL Albumin (3.5-5.0) g/dL Free T4 (0.78-2.19) ng/dL TSH 3rd Generation (0.470-4.680) mIU/L Digoxin (0.8-1.9) ng/mL Influenza Type A Ag (NEGATIVE) Influenza Type B Ag (NEGATIVE) RSV (PCR) (NEGATIVE) SARS-CoV-2 (PCR) (NEGATIVE) - Radiology Impressions Radiology Exams & Impressions: Radiology Procedures Category Date Time Status CHEST 1 VIEW (PORTABLE) Stat Exams 08/04/24 06:33 Completed CHEST WITHOUT CONTRAST [CT] Stat Exams 08/04/24 10:32 Ordered Assessment/Plan (1) Cough Current Visit: Yes Status: Acute Assessment & Plan: -CXR with non-acute findings -Robitussin with codeine -ceftriaxone/azith -CT chest w/o - consider VQ scan -Pertussis PCR pending Code(s): R05.9 - COUGH, UNSPECIFIED (2) URI (upper respiratory infection) Current Visit: Yes Status: Acute Assessment & Plan: -see cough above Code(s): J06.9 - ACUTE UPPER RESPIRATORY INFECTION, UNSPECIFIED (3) Acute on chronic renal failure Current Visit: Yes Status: Acute Assessment & Plan: -Baseline 0.99 - Hx CHF -monitor renal/lytes daily -avoid nephrotoxic medications Code(s): N17.9 - ACUTE KIDNEY FAILURE, UNSPECIFIED; N18.9 - CHRONIC KIDNEY DISEASE, UNSPECIFIED (4) Hematoma of abdominal wall Current Visit: Yes Status: Acute Assessment & Plan: -Improved since last visit - on reduced dose of Eliquis -Surgery follow up scheduled Code(s): S30.1XXA - CONTUSION OF ABDOMINAL WALL, INITIAL ENCOUNTER (5) CHF (congestive heart failure) Current Visit: Yes Status: Acute Assessment & Plan: -Follows closely with Dr. Vann - next appt this thurs - Echo 10/15/22 IMPRESSION: 1) GLOBAL LEFT VENTRICULAR HYPOKINESIA WITH A LEFT VENTRICULAR EJECTION FRACTION AROUND 35%. 2) SEVERE MITRAL REGURGITATION. 3) MODERATE AORTIC STENOSIS. 4) MILD TRICUSPID REGURGITATION. RIGHT VENTRICULAR SYSTOLIC PRESSURE OF 44 MM OF MERCURY. 5) MODERATE AORTIC REGURGITATION. 6) MILD PULMONIC INSUFFICIENCY. 7) LEFT VENTRICULAR HYPERTROPHY. 8) MODERATE TO SEVERE LEFT ATRIAL DILATATION. 9) MILDLY DILATED RIGHT SIDE CHAMBER. 10) MILD PULMONIC INSUFFICIENCY. 11) LEFT VENTRICLE DIASTOLIC DYSFUNCTION. -BNP 83132 -No edema on exam -Lasix 20mg given in ED -continue home meds -Echo Code(s): I50.9 - HEART FAILURE, UNSPECIFIED (6) Hypothyroid Current Visit: Yes Status: Acute Assessment & Plan: -TSH level reviwed and elevated at 8.450 - will dose reduce synthroid to 100mcg from 112mcg - she will need follow up as OP with PCP Code(s): E03.9 - HYPOTHYROIDISM, UNSPECIFIED (7) HTN (hypertension) Current Visit: Yes Status: Acute Assessment & Plan: -stable continue home meds Code(s): I10 - ESSENTIAL (PRIMARY) HYPERTENSION (8) Depression Current Visit: Yes Status: Acute Assessment & Plan: -continue prozac Code(s): F32.A - DEPRESSION, UNSPECIFIED (9) Chronic atrial fibrillation Current Visit: Yes Status: Acute Assessment & Plan: -Continue Eliquis/metoprolol Code(s): I48.20 - CHRONIC ATRIAL FIBRILLATION, UNSPECIFIED (10) Elevated brain natriuretic peptide (BNP) level Current Visit: Yes Status: Acute Assessment & Plan: -See CHF Code(s): R79.89 - OTHER SPECIFIED ABNORMAL FINDINGS OF BLOOD CHEMISTRY (11) High anion gap metabolic acidosis Current Visit: Yes Status: Acute Assessment & Plan: -Co2 at 20 - continue to monitor Code(s): E87.29 - OTHER ACIDOSIS (12) Insomnia Current Visit: Yes Status: Acute Assessment & Plan: -Trazadone at HS Code(s): G47.00 - INSOMNIA, UNSPECIFIED (13) Type II diabetes mellitus Current Visit: No Status: Chronic Qualifiers: Diabetes mellitus long wall mining machine tender insulin use: without group home use Assessment & Plan: -SSI- low dose -Hold metformin -accuchecks ACHS -A1c reviewed and at 6.56 VTE: Eliquis- PPI: Protonix Next of KIN: D/C plan: 1-2 days
[2024-08-04] MEDS ORDERED: DUONEB 0.5-3 MG/3 ml Neb IH PRN (12:40)
[2024-08-04] MEDS ORDERED: MEDICATION INTERVENTION MC SCH ×2 (12:45)
--- NOTE | 2024-08-04 13:33 | XRAY ---
Indication: Cough. Short of breath. Multiple contiguous axial images obtained through the chest without contrast. Comparison: October 14, 2022 Heart is now enlarged again with mitral valve calcifications and CABG surgery. Aorta remains mildly arteriosclerotic without aneurysm. Stable tiny right suprahilar calcified nodes. No pathologic mediastinal lymphadenopathy. Lungs again demonstrates small bilateral effusions. Also grossly stable diffuse scattered left lung subsegmental atelectasis/scarring and tiny right upper lobe calcified granuloma. Bony thorax intact again with osteopenia, mild degenerative changes throughout spine, sternotomy wires, and right shoulder arthroplasty. Limited upper abdomen again demonstrates tiny hepatic/splenic calcified granulomas. Impression: 1. New cardiomegaly with again small bilateral effusions favoring cardiac decompensation/CHF versus fluid overload. 2. Chronic findings including left lung atelectasis/scarring, mitral valve calcifications, arteriosclerotic disease, chronic bony findings, and old granulomatous disease.
[2024-08-04] MEDS: Protonix 40MG Tablet PO SCH (13:56)
[2024-08-04] MEDS: Zetia 10 MG PO SCH (13:56)
[2024-08-04] MEDS: Prozac 20 MG PO SCH (13:56)
[2024-08-04] MEDS: ELIQUIS 2.5 MG TABLET PO SCH (13:57)
[2024-08-04] MEDS: Lopressor 25MG Tab PO SCH (13:57)
[2024-08-04] MEDS: SYNTHROID 100 MCG PO SCH (13:57)
[2024-08-04] MEDS: Lanoxin 0.125MG TABLET PO SCH (13:57)
[2024-08-04] MEDS: Ditropan 5 MG PO SCH (13:57)
[2024-08-04] MEDS: Robitussin AC Syrup Unit Dose Cup PO PRN (14:03)
[2024-08-04] MEDS: DESYREL 50 MG PO SCH (21:58)
[2024-08-04] MEDS: CLARITIN 10 MG PO SCH (21:58)
[2024-08-04] MEDS ORDERED: NON-FORMULARY ITEM (Cetirizine Hcl [Zyrtec] 10 MG Tablet) PO SCH (22:00)
[2024-08-05] MEDS: TYLENOL 325 MG PO PRN (02:57)
--- NOTE | 2024-08-05 05:07 | PCM.NOTE ---
Date and Time: 08/05/24 0505 Subjective Assessment: is a 78 year old female with PMHX of CHF, afib (on eliquis), hyperlipidemia, NH, TYpe II DM, HTN, CKD, hypothyroidism, OA, anxiety, and depression who presented to ED 08/04/24 with complaints of an uncontrollable cough. Patient was recently admitted 07/18/24- 07/23/24 with similar complaints. I have reviewed this documentation. At that visit CXR was negative and sputum culture with serratia marcescens. She received treatment with Ceftin at that time. She also developed a hematoma to her right abdomen during that visit for which surgery was consulted and felt this was secondary to her coughing - no surgical intervention. Eliqus was held x 2 weeks and later resumed at a lower dose by her Soap Maker Dr. Vann. Patient states that her symptoms have never resolved and that nothing has made her cough better. This has caused her to have some nausea, poor appetite, and a poor energy level. She reports an average of about 2 hours a night of sleep. She also reports feeling "itchy" all over. Denies fever, sob, cp, abdominal pain, LONGORIA, dizziness, N/V/D. Upon arrival to ED, vitals signs stable. CXR with non-acute findings. Labs remarkable for hgb at 10.6, DDimer elevated at 2.06, Co2 at 20, Gap 18.4, BUN 44, creat at 1.56, Tbili at 1.40, ASt at 49, [place] 44[place] [address], and TSH 8.450. Respiratory panel is negative. Patient was given Rocephin/Azithromycin, lasix, and adacel vaccine. Pertussis PCR ordered and pending. 08/05/24: Endorses improvement in dyspnea and cough today. Sleep improved. Discussed CT findings favoring CHF. Pertussis pending. Will continue with azith, prednisone, and lasix. On baseline RA. Vitals stable. Possible discharge tomorrow pending treatment response. Denies fever, cp, abdominal pain, LONGORIA, dizziness, N/V/D. - Review of Systems Constitutional: Weakness Eyes: No Symptoms Ears, Nose, & Throat: No Symptoms Respiratory: Cough, Short Of Breath Cardiac: No Symptoms Abdominal/Gastrointestinal: No Symptoms Genitourinary Symptoms: No Symptoms Musculoskeletal: No Symptoms Skin: No Symptoms Neurological: No Symptoms Psychological: No Symptoms Endocrine: No Symptoms Hematologic/Lymphatic: No Symptoms Immunological/Allergic: No Symptoms Objective Exam General Appearance: no apparent distress Neurologic Exam: alert, oriented x 3, cooperative Skin Exam: normal color Eye Exam: PERRL Ears, Nose, Throat Exam: normal ENT inspection Neck Exam: normal inspection Respiratory Exam: normal breath sounds, lungs clear Cardiovascular Exam: regular rate/rhythm, normal heart sounds Gastrointestinal/Abdomen Exam: soft, normal bowel sounds Extremity Exam: normal inspection Back Exam: normal inspection Pelvic Exam: deferred Rectal Exam: deferred Objective Data Vital Signs: Vital Signs - 24 hr Temp Pulse Resp BP BP Pulse Ox 08/05/24 03:35 97.6 F 70 20 128/60 96 08/04/24 23:26 96.5 F 91 H 14 129/58 96 08/04/24 19:50 96.5 F 66 20 101/51 08/04/24 19:15 72 16 96 08/04/24 16:00 97.4 F 60 18 109/54 94 L 08/04/24 13:57 70 113/59 08/04/24 12:40 56 L 18 97 08/04/24 11:49 97.9 F 75 15 113/52 98 08/04/24 10:04 97.5 F 64 18 111/53 94 L 08/04/24 10:00 60 95 08/04/24 09:30 98 08/04/24 09:20 98 08/04/24 09:10 99 08/04/24 09:01 65 18 118/52 83 L 08/04/24 08:30 125/58 83 L 08/04/24 08:00 64 5 L 138/61 97 08/04/24 07:30 65 18 118/60 99 08/04/24 07:00 69 17 109/63 97 08/04/24 06:46 99 08/04/24 06:36 96 08/04/24 06:30 72 20 112/50 96 08/04/24 06:08 97.7 F 66 18 110/53 99 08/04/24 06:07 63 18 110/53 99 Pain Assessment - Last Documented Pain Intensity 7 Pain Scale Used FLACC Intake and Output: Intake & Output 08/02/24 08/03/24 08/04/24 08/05/24 11:59 11:59 11:59 11:59 Intake Total 340 Output Total 1100 Balance -760 Weight 77.4 kg Lab Results: Lab Results-Last 24 Hours 08/04/24 08/04/24 08/04/24 Range/Units 06:00 06:40 06:40 WBC 6.7 (3.98-10.04) x10^3/uL RBC 3.64 L (3.93-5.22) x10^6/uL Hgb 10.6 L (11.2-15.7) g/dL Hct 34.3 (34.1-44.9) % MCV 94.2 (79.4-94.8) fL MCH 29.1 (25.6-32.2) pg MCHC 30.9 L (32.2-35.5) g/dL RDW 17.7 H (11.7-14.4) % Plt Count 325 (182-369) x10^3/uL MPV 10.6 (9.4-12.3) fL Gran % 64.7 (34.0-71.1) % Immature Gran % (Auto) 0.4 (0.001-0.429) % Nucleat RBC Rel Count 0.0 (0.00-0.2) % Eos # (Auto) 0.33 (0.04-0.36) x10^3/uL Immature Gran # (Auto) 0.03 (0.001-0.031) x10^3u/L Absolute Lymphs (auto) 1.30 (1.18-3.74) x10^3/uL Absolute Monos (auto) 0.63 (0.24-0.86) x10^3/uL Absolute Nucleated RBC 0.00 (0.00-0.012) x10^3u/L Lymphocytes % 19.4 (19.3-51.7) % Monocytes % 9.4 (4.7-12.5) % Eosinophils % 4.9 (0.7-5.8) % Basophils % 1.2 (0.1-1.2) % Absolute Granulocytes 4.34 (1.56-6.13) x10^3/uL Basophils # 0.08 (0.01-0.08) x10^3/uL PT (9.4-12.5) SECONDS INR (0.8-3.0) D-Dimer (0.0-0.50) mg/L Sodium 141 (135-145) mmol/L Potassium 4.8 (3.5-5.1) mmol/L Chloride 107 (98-107) mmol/L Carbon Dioxide 20 L (22-30) mmol/L Anion Gap 18.4 H (5-15) MEQ/L BUN 44 H (7-17) mg/dL Creatinine 1.56 H (0.52-1.04) mg/dL Estimated GFR 33.4 ML/MIN Glucose 129 H (74-106) mg/dL POC Glucometer (74 to 106) mg/dL Lactic Acid (0.4-2.0) Calcium 9.4 (8.4-10.2) mg/dL Total Bilirubin 1.40 H (0.2-1.3) mg/dL AST 49 H (14-36) U/L ALT 44 H (0-35) U/L Alkaline Phosphatase 113 (38-126) U/L Troponin I (0.000-0.033) ng/mL NT-Pro-B Natriuret Pep (<300) pg/mL Serum Total Protein 6.3 (6.3-8.2) g/dL Albumin 3.5 (3.5-5.0) g/dL Procalcitonin 0.066 (0.030-0.080) ng/mL Free T4 (0.78-2.19) ng/dL TSH 3rd Generation (0.470-4.680) mIU/L Digoxin (0.8-1.9) ng/mL Influenza Type A Ag (NEGATIVE) Influenza Type B Ag (NEGATIVE) RSV (PCR) (NEGATIVE) SARS-CoV-2 (PCR) (NEGATIVE) 08/04/24 08/04/24 08/04/24 Range/Units 06:40 06:40 06:40 WBC (3.98-10.04) x10^3/uL RBC (3.93-5.22) x10^6/uL Hgb (11.2-15.7) g/dL Hct (34.1-44.9) % MCV (79.4-94.8) fL MCH (25.6-32.2) pg MCHC (32.2-35.5) g/dL RDW (11.7-14.4) % Plt Count (182-369) x10^3/uL MPV (9.4-12.3) fL Gran % (34.0-71.1) % Immature Gran % (Auto) (0.001-0.429) % Nucleat RBC Rel Count (0.00-0.2) % Eos # (Auto) (0.04-0.36) x10^3/uL Immature Gran # (Auto) (0.001-0.031) x10^3u/L Absolute Lymphs (auto) (1.18-3.74) x10^3/uL Absolute Monos (auto) (0.24-0.86) x10^3/uL Absolute Nucleated RBC (0.00-0.012) x10^3u/L Lymphocytes % (19.3-51.7) % Monocytes % (4.7-12.5) % Eosinophils % (0.7-5.8) % Basophils % (0.1-1.2) % Absolute Granulocytes (1.56-6.13) x10^3/uL Basophils # (0.01-0.08) x10^3/uL PT 12.1 (9.4-12.5) SECONDS INR 1.12 (0.8-3.0) D-Dimer 2.06 H* (0.0-0.50) mg/L Sodium (135-145) mmol/L Potassium (3.5-5.1) mmol/L Chloride (98-107) mmol/L Carbon Dioxide (22-30) mmol/L Anion Gap (5-15) MEQ/L BUN (7-17) mg/dL Creatinine (0.52-1.04) mg/dL Estimated GFR ML/MIN Glucose (74-106) mg/dL POC Glucometer (74 to 106) mg/dL Lactic Acid (0.4-2.0) Calcium (8.4-10.2) mg/dL Total Bilirubin (0.2-1.3) mg/dL AST (14-36) U/L ALT (0-35) U/L Alkaline Phosphatase (38-126) U/L Troponin I < 0.012 (0.000-0.033) ng/mL NT-Pro-B Natriuret Pep 95521 (<300) pg/mL Serum Total Protein (6.3-8.2) g/dL Albumin (3.5-5.0) g/dL Procalcitonin (0.030-0.080) ng/mL Free T4 (0.78-2.19) ng/dL TSH 3rd Generation (0.470-4.680) mIU/L Digoxin 0.7 L (0.8-1.9) ng/mL Influenza Type A Ag (NEGATIVE) Influenza Type B Ag (NEGATIVE) RSV (PCR) (NEGATIVE) SARS-CoV-2 (PCR) (NEGATIVE) 08/04/24 08/04/24 08/04/24 Range/Units 06:40 06:40 06:45 WBC (3.98-10.04) x10^3/uL RBC (3.93-5.22) x10^6/uL Hgb (11.2-15.7) g/dL Hct (34.1-44.9) % MCV (79.4-94.8) fL MCH (25.6-32.2) pg MCHC (32.2-35.5) g/dL RDW (11.7-14.4) % Plt Count (182-369) x10^3/uL MPV (9.4-12.3) fL Gran % (34.0-71.1) % Immature Gran % (Auto) (0.001-0.429) % Nucleat RBC Rel Count (0.00-0.2) % Eos # (Auto) (0.04-0.36) x10^3/uL Immature Gran # (Auto) (0.001-0.031) x10^3u/L Absolute Lymphs (auto) (1.18-3.74) x10^3/uL Absolute Monos (auto) (0.24-0.86) x10^3/uL Absolute Nucleated RBC (0.00-0.012) x10^3u/L Lymphocytes % (19.3-51.7) % Monocytes % (4.7-12.5) % Eosinophils % (0.7-5.8) % Basophils % (0.1-1.2) % Absolute Granulocytes (1.56-6.13) x10^3/uL Basophils # (0.01-0.08) x10^3/uL PT (9.4-12.5) SECONDS INR (0.8-3.0) D-Dimer (0.0-0.50) mg/L Sodium (135-145) mmol/L Potassium (3.5-5.1) mmol/L Chloride (98-107) mmol/L Carbon Dioxide (22-30) mmol/L Anion Gap (5-15) MEQ/L BUN (7-17) mg/dL Creatinine (0.52-1.04) mg/dL Estimated GFR ML/MIN Glucose (74-106) mg/dL POC Glucometer (74 to 106) mg/dL Lactic Acid (0.4-2.0) Calcium (8.4-10.2) mg/dL Total Bilirubin (0.2-1.3) mg/dL AST (14-36) U/L ALT (0-35) U/L Alkaline Phosphatase (38-126) U/L Troponin I (0.000-0.033) ng/mL NT-Pro-B Natriuret Pep (<300) pg/mL Serum Total Protein (6.3-8.2) g/dL Albumin (3.5-5.0) g/dL Procalcitonin (0.030-0.080) ng/mL Free T4 2.17 (0.78-2.19) ng/dL TSH 3rd Generation 8.450 H (0.470-4.680) mIU/L Digoxin (0.8-1.9) ng/mL Influenza Type A Ag NEGATIVE (NEGATIVE) Influenza Type B Ag NEGATIVE (NEGATIVE) RSV (PCR) NEGATIVE (NEGATIVE) SARS-CoV-2 (PCR) NEGATIVE (NEGATIVE) 08/04/24 08/04/24 08/04/24 Range/Units 08:50 11:16 12:40 WBC (3.98-10.04) x10^3/uL RBC (3.93-5.22) x10^6/uL Hgb (11.2-15.7) g/dL Hct (34.1-44.9) % MCV (79.4-94.8) fL MCH (25.6-32.2) pg MCHC (32.2-35.5) g/dL RDW (11.7-14.4) % Plt Count (182-369) x10^3/uL MPV (9.4-12.3) fL Gran % (34.0-71.1) % Immature Gran % (Auto) (0.001-0.429) % Nucleat RBC Rel Count (0.00-0.2) % Eos # (Auto) (0.04-0.36) x10^3/uL Immature Gran # (Auto) (0.001-0.031) x10^3u/L Absolute Lymphs (auto) (1.18-3.74) x10^3/uL Absolute Monos (auto) (0.24-0.86) x10^3/uL Absolute Nucleated RBC (0.00-0.012) x10^3u/L Lymphocytes % (19.3-51.7) % Monocytes % (4.7-12.5) % Eosinophils % (0.7-5.8) % Basophils % (0.1-1.2) % Absolute Granulocytes (1.56-6.13) x10^3/uL Basophils # (0.01-0.08) x10^3/uL PT (9.4-12.5) SECONDS INR (0.8-3.0) D-Dimer (0.0-0.50) mg/L Sodium (135-145) mmol/L Potassium (3.5-5.1) mmol/L Chloride (98-107) mmol/L Carbon Dioxide (22-30) mmol/L Anion Gap (5-15) MEQ/L BUN (7-17) mg/dL Creatinine (0.52-1.04) mg/dL Estimated GFR ML/MIN Glucose (74-106) mg/dL POC Glucometer 119 H (74 to 106) mg/dL Lactic Acid 2.1 H (0.4-2.0) Calcium (8.4-10.2) mg/dL Total Bilirubin (0.2-1.3) mg/dL AST (14-36) U/L ALT (0-35) U/L Alkaline Phosphatase (38-126) U/L Troponin I < 0.012 (0.000-0.033) ng/mL NT-Pro-B Natriuret Pep (<300) pg/mL Serum Total Protein (6.3-8.2) g/dL Albumin (3.5-5.0) g/dL Procalcitonin (0.030-0.080) ng/mL Free T4 (0.78-2.19) ng/dL TSH 3rd Generation (0.470-4.680) mIU/L Digoxin (0.8-1.9) ng/mL Influenza Type A Ag (NEGATIVE) Influenza Type B Ag (NEGATIVE) RSV (PCR) (NEGATIVE) SARS-CoV-2 (PCR) (NEGATIVE) 08/04/24 08/04/24 08/04/24 Range/Units 14:33 16:23 21:39 WBC (3.98-10.04) x10^3/uL RBC (3.93-5.22) x10^6/uL Hgb (11.2-15.7) g/dL Hct (34.1-44.9) % MCV (79.4-94.8) fL MCH (25.6-32.2) pg MCHC (32.2-35.5) g/dL RDW (11.7-14.4) % Plt Count (182-369) x10^3/uL MPV (9.4-12.3) fL Gran % (34.0-71.1) % Immature Gran % (Auto) (0.001-0.429) % Nucleat RBC Rel Count (0.00-0.2) % Eos # (Auto) (0.04-0.36) x10^3/uL Immature Gran # (Auto) (0.001-0.031) x10^3u/L Absolute Lymphs (auto) (1.18-3.74) x10^3/uL Absolute Monos (auto) (0.24-0.86) x10^3/uL Absolute Nucleated RBC (0.00-0.012) x10^3u/L Lymphocytes % (19.3-51.7) % Monocytes % (4.7-12.5) % Eosinophils % (0.7-5.8) % Basophils % (0.1-1.2) % Absolute Granulocytes (1.56-6.13) x10^3/uL Basophils # (0.01-0.08) x10^3/uL PT (9.4-12.5) SECONDS INR (0.8-3.0) D-Dimer (0.0-0.50) mg/L Sodium (135-145) mmol/L Potassium (3.5-5.1) mmol/L Chloride (98-107) mmol/L Carbon Dioxide (22-30) mmol/L Anion Gap (5-15) MEQ/L BUN (7-17) mg/dL Creatinine (0.52-1.04) mg/dL Estimated GFR ML/MIN Glucose (74-106) mg/dL POC Glucometer 191 H 148 H (74 to 106) mg/dL Lactic Acid (0.4-2.0) Calcium (8.4-10.2) mg/dL Total Bilirubin (0.2-1.3) mg/dL AST (14-36) U/L ALT (0-35) U/L Alkaline Phosphatase (38-126) U/L Troponin I < 0.012 (0.000-0.033) ng/mL NT-Pro-B Natriuret Pep (<300) pg/mL Serum Total Protein (6.3-8.2) g/dL Albumin (3.5-5.0) g/dL Procalcitonin (0.030-0.080) ng/mL Free T4 (0.78-2.19) ng/dL TSH 3rd Generation (0.470-4.680) mIU/L Digoxin (0.8-1.9) ng/mL Influenza Type A Ag (NEGATIVE) Influenza Type B Ag (NEGATIVE) RSV (PCR) (NEGATIVE) SARS-CoV-2 (PCR) (NEGATIVE) Radiology Exams: Radiology Procedures Category Date Time Status CHEST 1 VIEW (PORTABLE) Stat Exams 08/04/24 06:33 Completed CHEST WITHOUT CONTRAST [CT] Stat Exams 08/04/24 10:32 Completed ECHO W/2D AND DOPPLER [US] Routine Exams 08/04/24 12:29 Taken Assessment/Plan (1) Cough Current Visit: Yes Status: Acute Assessment & Plan: -CXR with non-acute findings -Robitussin with codeine -ceftriaxone/azith -CT chest w/o - consider VQ scan -Pertussis PCR pending 08/05: -CT chest favoring CHF - continue lasix -Pertussis pending- continue azithromycin -Prednisone Code(s): R05.9 - COUGH, UNSPECIFIED (2) URI (upper respiratory infection) Current Visit: Yes Status: Acute Assessment & Plan: -see cough above Code(s): J06.9 - ACUTE UPPER RESPIRATORY INFECTION, UNSPECIFIED (3) Acute on chronic renal failure Current Visit: Yes Status: Acute Assessment & Plan: -Baseline 0.99 - Hx CHF -monitor renal/lytes daily -avoid nephrotoxic medications 08/05: -CMP reviewed, creat improved at 1.49- continue to monitor Code(s): N17.9 - ACUTE KIDNEY FAILURE, UNSPECIFIED; N18.9 - CHRONIC KIDNEY DISEASE, UNSPECIFIED (4) Hematoma of abdominal wall Current Visit: Yes Status: Acute Assessment & Plan: -Improved since last visit - on reduced dose of Eliquis -Surgery follow up scheduled Code(s): S30.1XXA - CONTUSION OF ABDOMINAL WALL, INITIAL ENCOUNTER (5) CHF (congestive heart failure) Current Visit: Yes Status: Acute Assessment & Plan: -Follows closely with Dr. Vann - next appt this thurs - Echo 10/15/22 IMPRESSION: 1) GLOBAL LEFT VENTRICULAR HYPOKINESIA WITH A LEFT VENTRICULAR EJECTION FRACTION AROUND 35%. 2) SEVERE MITRAL REGURGITATION. 3) MODERATE AORTIC STENOSIS. 4) MILD TRICUSPID REGURGITATION. RIGHT VENTRICULAR SYSTOLIC PRESSURE OF 44 MM OF MERCURY. 5) MODERATE AORTIC REGURGITATION. 6) MILD PULMONIC INSUFFICIENCY. 7) LEFT VENTRICULAR HYPERTROPHY. 8) MODERATE TO SEVERE LEFT ATRIAL DILATATION. 9) MILDLY DILATED RIGHT SIDE CHAMBER. 10) MILD PULMONIC INSUFFICIENCY. 11) LEFT VENTRICLE DIASTOLIC DYSFUNCTION. -BNP 10875 -No edema on exam -Lasix 20mg given in ED -continue home meds -Echo 08/05: -CT chest reviewed favoring CHF - continue lasix IV 40mg daily Code(s): I50.9 - HEART FAILURE, UNSPECIFIED (6) Hypothyroid Current Visit: Yes Status: Acute Assessment & Plan: -TSH level reviwed and elevated at 8.450 - will dose reduce synthroid to 100mcg from 112mcg - she will need follow up as OP with PCP Code(s): E03.9 - HYPOTHYROIDISM, UNSPECIFIED (7) HTN (hypertension) Current Visit: Yes Status: Acute Assessment & Plan: -stable continue home meds Code(s): I10 - ESSENTIAL (PRIMARY) HYPERTENSION (8) Depression Current Visit: Yes Status: Acute Assessment & Plan: -continue prozac Code(s): F32.A - DEPRESSION, UNSPECIFIED (9) Chronic atrial fibrillation Current Visit: Yes Status: Acute Assessment & Plan: -Continue Eliquis/metoprolol Code(s): I48.20 - CHRONIC ATRIAL FIBRILLATION, UNSPECIFIED (10) Elevated brain natriuretic peptide (BNP) level Current Visit: Yes Status: Acute Assessment & Plan: -See CHF Code(s): R79.89 - OTHER SPECIFIED ABNORMAL FINDINGS OF BLOOD CHEMISTRY (11) High anion gap metabolic acidosis Current Visit: Yes Status: Acute Assessment & Plan: -Co2 at 20 - continue to monitor 08/05: -C02 reviewed now WNL at 24 - resolved Code(s): E87.29 - OTHER ACIDOSIS (12) Insomnia Current Visit: Yes Status: Acute Assessment & Plan: -Trazadone at HS Code(s): G47.00 - INSOMNIA, UNSPECIFIED (13) Type II diabetes mellitus Current Visit: No Status: Chronic Qualifiers: Diabetes mellitus regional intermodal truck driver insulin use: without regional intermodal truck driver use Assessment & Plan: -SSI- low dose -Hold metformin -accuchecks ACHS -A1c reviewed and at 6.56 VTE: Eliquis- PPI: Protonix Next of KIN: D/C plan: 1-2 days Code(s): R05.9 - COUGH, UNSPECIFIED (2) URI (upper respiratory infection) Current Visit: Yes Status: Acute Code(s): J06.9 - ACUTE UPPER RESPIRATORY INFECTION, UNSPECIFIED (3) Acute on chronic renal failure Current Visit: Yes Status: Acute Code(s): N17.9 - ACUTE KIDNEY FAILURE, UNSPECIFIED; N18.9 - CHRONIC KIDNEY DISEASE, UNSPECIFIED (4) Hematoma of abdominal wall Current Visit: Yes Status: Acute Code(s): S30.1XXA - CONTUSION OF ABDOMINAL WALL, INITIAL ENCOUNTER (5) CHF (congestive heart failure) Current Visit: Yes Status: Acute Code(s): I50.9 - HEART FAILURE, UNSPECIFIED (6) Hypothyroid Current Visit: Yes Status: Acute Code(s): E03.9 - HYPOTHYROIDISM, UNSPECIFIED (7) HTN (hypertension) Current Visit: Yes Status: Acute Code(s): I10 - ESSENTIAL (PRIMARY) HYPERTENSION (8) Depression Current Visit: Yes Status: Acute Code(s): F32.A - DEPRESSION, UNSPECIFIED (9) Chronic atrial fibrillation Current Visit: Yes Status: Acute Code(s): I48.20 - CHRONIC ATRIAL FIBRILLATION, UNSPECIFIED (10) Elevated brain natriuretic peptide (BNP) level Current Visit: Yes Status: Acute Code(s): R79.89 - OTHER SPECIFIED ABNORMAL FINDINGS OF BLOOD CHEMISTRY (11) High anion gap metabolic acidosis Current Visit: Yes Status: Acute Code(s): E87.29 - OTHER ACIDOSIS (12) Insomnia Current Visit: Yes Status: Acute Code(s): G47.00 - INSOMNIA, UNSPECIFIED (13) Type II diabetes mellitus Current Visit: No Status: Chronic Qualifiers: Diabetes mellitus regional intermodal truck driver insulin use: without regional intermodal truck driver use
[2024-08-05 06:02] LABS: Absolute Neutrophil Ct (ANC) 3.92 x10^3/uL (1.56-6.13); BASOPHIL % 0.8 % (0.1-1.2); Basophil (Absolute #) 0.05 x10^3/uL (0.01-0.08); Eosinophil % 3.9 % (0.7-5.8); Eosinophil (Absolute #) 0.23 x10^3/uL (0.04-0.36); Hematocrit 33.8 % (34.1-44.9); Hemoglobin 10.4 g/dL (11.2-15.7); IMMATURE GRAN # 0.03 x10^3u/L (0.001-0.031); IMMATURE GRAN % 0.5 % (0.001-0.429); Lymphocytes % 18.5 % (19.3-51.7); Mean Cell Volume 93.9 fL (79.4-94.8); Mean Corpuscular Hemoglobin 28.9 pg (25.6-32.2); Mean Corpuscular Hgb Concent. 30.8 g/dL (32.2-35.5); Mean Platelet Volume 10.9 fL (9.4-12.3); Monocyte (Absolute #) 0.62 x10^3/uL (0.24-0.86); Monocytes % 10.4 % (4.7-12.5); Neutrophil % 65.9 % (34.0-71.1); Platelet Count 319 x10^3/uL (182-369); Red Cell Distribution Width 18.1 % (11.7-14.4)
[2024-08-05 06:22] LABS: ALBUMIN 3.7 g/dL (3.5-5.0); ANION GAP 15.7 MEQ/L (5-15); BILIRUBIN,TOTAL 1.4 mg/dL (0.2-1.3); Calcium 9.1 mg/dL (8.4-10.2); Creatinine 1 1.49 mg/dL (0.52-1.04); EST GLOMERULAR FILTRATION RATE 35.3 ML/MIN; Potassium 4.2 mmol/L (3.5-5.1); Total Protein 6.8 g/dL (6.3-8.2)
[2024-08-05] MEDS ORDERED: VERICIGUAT 5 MG PO SCH (10:00)
[2024-08-05] MEDS ORDERED: ROCEPHIN 1 GM / 100 ML NaCl 1 GM/100 ML IVPB IV SCH (10:00)
[2024-08-05] MEDS ORDERED: NON-FORMULARY ITEM (Dapagliflozin Propanediol [Farxiga] 10 MG Tablet) PO SCH (10:00)
[2024-08-05] MEDS: Lasix 40 MG/4 ML IV SCH (10:01)
[2024-08-05] MEDS: DELTASONE 20 MG PO SCH (10:01)
[2024-08-05] MEDS: Zithromax 500 MG/ 250 ML NaCl Premix 500 MG/250 ML IVPB IV SCH (10:02)
[2024-08-05] MEDS: HUMALOG SQ PRN (11:55)
[2024-08-05] MEDS: BENADRYL 25 MG CAPSULE PO PRN (16:07)
--- NOTE | 2024-08-06 05:08 | PCM.NOTE ---
Date and Time: 08/06/24 0508 Subjective Assessment: is a 78 year old female with PMHX of CHF, afib (on eliquis), hyperlipidemia, CO, TYpe II DM, HTN, CKD, hypothyroidism, OA, anxiety, and depression who presented to ED 08/04/24 with complaints of an uncontrollable cough. Patient was recently admitted 07/18/24- 07/23/24 with similar complaints. I have reviewed this documentation. At that visit CXR was negative and sputum culture with serratia marcescens. She received treatment with Ceftin at that time. She also developed a hematoma to her right abdomen during that visit for which surgery was consulted and felt this was secondary to her coughing - no surgical intervention. Eliqus was held x 2 weeks and later resumed at a lower dose by her [employer] Dr. Vann. Patient states that her symptoms have never resolved and that nothing has made her cough better. This has caused her to have some nausea, poor appetite, and a poor energy level. She reports an average of about 2 hours a night of sleep. She also reports feeling "itchy" all over. Denies fever, sob, cp, abdominal pain, LONGORIA, dizziness, N/V/D. Upon arrival to ED, vitals signs stable. CXR with non-acute findings. Labs remarkable for hgb at 10.6, DDimer elevated at 2.06, Co2 at 20, Gap 18.4, BUN 44, creat at 1.56, Tbili at 1.40, ASt at 49, [place] 44[place] [address], and TSH 8.450. Respiratory panel is negative. Patient was given Rocephin/Azithromycin, lasix, and adacel vaccine. Pertussis PCR ordered and pending. 08/05/24: Endorses improvement in dyspnea and cough today. Sleep improved. Discussed CT findings favoring CHF. Pertussis pending. Will continue with azith, prednisone, and lasix. On baseline RA. Vitals stable. Possible discharge tomorrow pending treatment response. Denies fever, cp, abdominal pain, LONGORIA, dizziness, N/V/D. Objective Data Vital Signs: Vital Signs - 24 hr Temp Pulse Resp BP Pulse Ox 08/06/24 04:04 97.8 F 63 17 111/57 94 L 08/05/24 23:24 98.1 F 77 20 122/55 08/05/24 19:34 97.8 F 77 21 117/58 96 08/05/24 19:30 82 16 93 L 08/05/24 15:59 98.1 F 59 L 20 123/54 95 08/05/24 12:00 97.9 F 66 20 100/50 96 08/05/24 11:52 53 L 15 96 08/05/24 10:13 63 08/05/24 08:00 98.0 F 56 L 14 115/53 93 L Pain Assessment - Last Documented Pain Intensity 0 Pain Scale Used [facility] Intake and Output: Intake & Output 08/03/24 08/04/24 08/05/24 08/06/24 11:59 11:59 11:59 11:59 Intake Total 460 120 Output Total 1250 400 Balance -790 -280 Weight 77.4 kg 76.9 kg Lab Results: Lab Results-Last 24 Hours 08/05/24 08/05/24 08/05/24 Range/Units 05:54 05:54 07:40 WBC 6.0 (3.98-10.04) x10^3/uL RBC 3.60 L (3.93-5.22) x10^6/uL Hgb 10.4 L (11.2-15.7) g/dL Hct 33.8 L (34.1-44.9) % MCV 93.9 (79.4-94.8) fL MCH 28.9 (25.6-32.2) pg MCHC 30.8 L (32.2-35.5) g/dL RDW 18.1 H (11.7-14.4) % Plt Count 319 (182-369) x10^3/uL MPV 10.9 (9.4-12.3) fL Gran % 65.9 (34.0-71.1) % Immature Gran % (Auto) 0.5 H (0.001-0.429) % Nucleat RBC Rel Count 0.0 (0.00-0.2) % Eos # (Auto) 0.23 (0.04-0.36) x10^3/uL Immature Gran # (Auto) 0.03 (0.001-0.031) x10^3u/L Absolute Lymphs (auto) 1.10 L (1.18-3.74) x10^3/uL Absolute Monos (auto) 0.62 (0.24-0.86) x10^3/uL Absolute Nucleated RBC 0.00 (0.00-0.012) x10^3u/L Lymphocytes % 18.5 L (19.3-51.7) % Monocytes % 10.4 (4.7-12.5) % Eosinophils % 3.9 (0.7-5.8) % Basophils % 0.8 (0.1-1.2) % Absolute Granulocytes 3.92 (1.56-6.13) x10^3/uL Basophils # 0.05 (0.01-0.08) x10^3/uL Sodium 141 (135-145) mmol/L Potassium 4.2 (3.5-5.1) mmol/L Chloride 105 (98-107) mmol/L Carbon Dioxide 24 (22-30) mmol/L Anion Gap 15.7 H (5-15) MEQ/L BUN 43 H (7-17) mg/dL Creatinine 1.49 H (0.52-1.04) mg/dL Estimated GFR 35.3 ML/MIN Glucose 128 H (74-106) mg/dL POC Glucometer 121 H (74 to 106) mg/dL Calcium 9.1 (8.4-10.2) mg/dL Total Bilirubin 1.40 H (0.2-1.3) mg/dL AST 56 H (14-36) U/L ALT 42 H (0-35) U/L Alkaline Phosphatase 93 (38-126) U/L Serum Total Protein 6.8 (6.3-8.2) g/dL Albumin 3.7 (3.5-5.0) g/dL 08/05/24 08/05/24 08/05/24 Range/Units 11:43 16:22 20:52 WBC (3.98-10.04) x10^3/uL RBC (3.93-5.22) x10^6/uL Hgb (11.2-15.7) g/dL Hct (34.1-44.9) % MCV (79.4-94.8) fL MCH (25.6-32.2) pg MCHC (32.2-35.5) g/dL RDW (11.7-14.4) % Plt Count (182-369) x10^3/uL MPV (9.4-12.3) fL Gran % (34.0-71.1) % Immature Gran % (Auto) (0.001-0.429) % Nucleat RBC Rel Count (0.00-0.2) % Eos # (Auto) (0.04-0.36) x10^3/uL Immature Gran # (Auto) (0.001-0.031) x10^3u/L Absolute Lymphs (auto) (1.18-3.74) x10^3/uL Absolute Monos (auto) (0.24-0.86) x10^3/uL Absolute Nucleated RBC (0.00-0.012) x10^3u/L Lymphocytes % (19.3-51.7) % Monocytes % (4.7-12.5) % Eosinophils % (0.7-5.8) % Basophils % (0.1-1.2) % Absolute Granulocytes (1.56-6.13) x10^3/uL Basophils # (0.01-0.08) x10^3/uL Sodium (135-145) mmol/L Potassium (3.5-5.1) mmol/L Chloride (98-107) mmol/L Carbon Dioxide (22-30) mmol/L Anion Gap (5-15) MEQ/L BUN (7-17) mg/dL Creatinine (0.52-1.04) mg/dL Estimated GFR ML/MIN Glucose (74-106) mg/dL POC Glucometer 225 H 218 H 205 H (74 to 106) mg/dL Calcium (8.4-10.2) mg/dL Total Bilirubin (0.2-1.3) mg/dL AST (14-36) U/L ALT (0-35) U/L Alkaline Phosphatase (38-126) U/L Serum Total Protein (6.3-8.2) g/dL Albumin (3.5-5.0) g/dL Radiology Exams: Radiology Procedures Category Date Time Status CHEST 1 VIEW (PORTABLE) Stat Exams 08/04/24 06:33 Completed CHEST WITHOUT CONTRAST [CT] Stat Exams 08/04/24 10:32 Completed ECHO W/2D AND DOPPLER [US] Routine Exams 08/04/24 12:29 Taken Multi-Disciplinary Progress Notes: Multi-Disciplinary Progress Notes 08/05/24 16:23 Radiology Note by ALEJANDRO HANSEN TRANSTHORACIC ECHOCARDIOGRAM 08/04/2024: 1. Severely dilated left atrium. Mildly dilated left ventricle. Normal right sided chamber sizes. 2. Mild concentric left ventricular hypertrophy. 3. Mildly depressed Left ventricular systolic function with an estimated EF 40- 45%. 4. Unable to assess grade of diastolic dysfunction due to underlying atrial fibrillation. 5. Normal right ventricular systolic function. 6. Mixed aortic valve disease with moderate aortic regurgitation and mild to moderate aortic stenosis. 7. Mitral valve disease with moderate mitral regurgitation. Cannot exclude mild mitral stenosis. 8. Doppler: Mild tricuspid and pulmonic regurgitation. 9. Mild pulmonary hypertension with an estimated PA systolic pressure 49 mmHg. 10. Mildly elevated right atrial pressure. 11. No pericardial effusion. 12. Impression: Underlying atrial fibrillation with mildly dilated LV with mildly depressed LV systolic function. Moderate aortic and mitral regurgitation. Consider reinterrogation of these valves to better assess for stenotic lesions. Alejandro Hansen MD [employer] Initialized on 08/05/24 16:23 - END OF NOTE Assessment/Plan (1) Cough Current Visit: Yes Status: Acute Assessment & Plan: -CXR with non-acute findings -Robitussin with codeine -ceftriaxone/azith -CT chest w/o - consider VQ scan -Pertussis PCR pending 08/05: -CT chest favoring CHF - continue lasix -Pertussis pending- continue azithromycin -Prednisone Code(s): R05.9 - COUGH, UNSPECIFIED (2) URI (upper respiratory infection) Current Visit: Yes Status: Acute Assessment & Plan: -see cough above Code(s): J06.9 - ACUTE UPPER RESPIRATORY INFECTION, UNSPECIFIED (3) Acute on chronic renal failure Current Visit: Yes Status: Acute Assessment & Plan: -Baseline 0.99 - Hx CHF -monitor renal/lytes daily -avoid nephrotoxic medications 08/05: -CMP reviewed, creat improved at 1.49- continue to monitor Code(s): N17.9 - ACUTE KIDNEY FAILURE, UNSPECIFIED; N18.9 - CHRONIC KIDNEY DISEASE, UNSPECIFIED (4) Hematoma of abdominal wall Current Visit: Yes Status: Acute Assessment & Plan: -Improved since last visit - on reduced dose of Eliquis -Surgery follow up scheduled Code(s): S30.1XXA - CONTUSION OF ABDOMINAL WALL, INITIAL ENCOUNTER (5) CHF (congestive heart failure) Current Visit: Yes Status: Acute Assessment & Plan: -Follows closely with Dr. Vann - next appt this thurs - Echo 10/15/22 IMPRESSION: 1) GLOBAL LEFT VENTRICULAR HYPOKINESIA WITH A LEFT VENTRICULAR EJECTION FRACTION AROUND 35%. 2) SEVERE MITRAL REGURGITATION. 3) MODERATE AORTIC STENOSIS. 4) MILD TRICUSPID REGURGITATION. RIGHT VENTRICULAR SYSTOLIC PRESSURE OF 44 MM OF MERCURY. 5) MODERATE AORTIC REGURGITATION. 6) MILD PULMONIC INSUFFICIENCY. 7) LEFT VENTRICULAR HYPERTROPHY. 8) MODERATE TO SEVERE LEFT ATRIAL DILATATION. 9) MILDLY DILATED RIGHT SIDE CHAMBER. 10) MILD PULMONIC INSUFFICIENCY. 11) LEFT VENTRICLE DIASTOLIC DYSFUNCTION. -BNP 36291 -No edema on exam -Lasix 20mg given in ED -continue home meds -Echo 08/05: -CT chest reviewed favoring CHF - continue lasix IV 40mg daily Code(s): I50.9 - HEART FAILURE, UNSPECIFIED (6) Hypothyroid Current Visit: Yes Status: Acute Assessment & Plan: -TSH level reviwed and elevated at 8.450 - will dose reduce synthroid to 100mcg from 112mcg - she will need follow up as OP with PCP Code(s): E03.9 - HYPOTHYROIDISM, UNSPECIFIED (7) HTN (hypertension) Current Visit: Yes Status: Acute Assessment & Plan: -stable continue home meds Code(s): I10 - ESSENTIAL (PRIMARY) HYPERTENSION (8) Depression Current Visit: Yes Status: Acute Assessment & Plan: -continue prozac Code(s): F32.A - DEPRESSION, UNSPECIFIED (9) Chronic atrial fibrillation Current Visit: Yes Status: Acute Assessment & Plan: -Continue Eliquis/metoprolol Code(s): I48.20 - CHRONIC ATRIAL FIBRILLATION, UNSPECIFIED (10) Elevated brain natriuretic peptide (BNP) level Current Visit: Yes Status: Acute Assessment & Plan: -See CHF Code(s): R79.89 - OTHER SPECIFIED ABNORMAL FINDINGS OF BLOOD CHEMISTRY (11) High anion gap metabolic acidosis Current Visit: Yes Status: Acute Assessment & Plan: -Co2 at 20 - continue to monitor 08/05: -C02 reviewed now WNL at 24 - resolved Code(s): E87.29 - OTHER ACIDOSIS (12) Insomnia Current Visit: Yes Status: Acute Assessment & Plan: -Trazadone at HS Code(s): G47.00 - INSOMNIA, UNSPECIFIED (13) Type II diabetes mellitus Current Visit: No Status: Chronic Qualifiers: Diabetes mellitus assisted insulin use: without assisted use Assessment & Plan: -SSI- low dose -Hold metformin -accuchecks ACHS -A1c reviewed and at 6.56 VTE: Eliquis- PPI: Protonix Next of KIN: D/C plan: 1-2 days Code(s): R05.9 - COUGH, UNSPECIFIED (2) URI (upper respiratory infection) Current Visit: Yes Status: Acute Code(s): J06.9 - ACUTE UPPER RESPIRATORY INFECTION, UNSPECIFIED (3) Acute on chronic renal failure Current Visit: Yes Status: Acute Code(s): N17.9 - ACUTE KIDNEY FAILURE, UNSPECIFIED; N18.9 - CHRONIC KIDNEY DISEASE, UNSPECIFIED (4) Hematoma of abdominal wall Current Visit: Yes Status: Acute Code(s): S30.1XXA - CONTUSION OF ABDOMINAL WALL, INITIAL ENCOUNTER (5) CHF (congestive heart failure) Current Visit: Yes Status: Acute Code(s): I50.9 - HEART FAILURE, UNSPECIFIED (6) Hypothyroid Current Visit: Yes Status: Acute Code(s): E03.9 - HYPOTHYROIDISM, UNSPECIFIED (7) HTN (hypertension) Current Visit: Yes Status: Acute Code(s): I10 - ESSENTIAL (PRIMARY) HYPERTENSION (8) Depression Current Visit: Yes Status: Acute Code(s): F32.A - DEPRESSION, UNSPECIFIED (9) Chronic atrial fibrillation Current Visit: Yes Status: Acute Code(s): I48.20 - CHRONIC ATRIAL FIBRILLATION, UNSPECIFIED (10) Elevated brain natriuretic peptide (BNP) level Current Visit: Yes Status: Acute Code(s): R79.89 - OTHER SPECIFIED ABNORMAL FINDINGS OF BLOOD CHEMISTRY (11) High anion gap metabolic acidosis Current Visit: Yes Status: Acute Code(s): E87.29 - OTHER ACIDOSIS (12) Insomnia Current Visit: Yes Status: Acute Code(s): G47.00 - INSOMNIA, UNSPECIFIED (13) Type II diabetes mellitus Current Visit: No Status: Chronic Qualifiers: Diabetes mellitus assisted insulin use: without assisted use
[2024-08-06 05:52] LABS: Absolute Neutrophil Ct (ANC) 7.11 x10^3/uL (1.56-6.13); BASOPHIL % 0.2 % (0.1-1.2); Basophil (Absolute #) 0.02 x10^3/uL (0.01-0.08); Eosinophil (Absolute #) 0 x10^3/uL (0.04-0.36); Hematocrit 33.3 % (34.1-44.9); Hemoglobin 10.2 g/dL (11.2-15.7); IMMATURE GRAN # 0.03 x10^3u/L (0.001-0.031); IMMATURE GRAN % 0.4 % (0.001-0.429); Lymphocyte (Absolute #) 0.62 x10^3/uL (1.18-3.74); Lymphocytes % 7.7 % (19.3-51.7); Mean Cell Volume 92.5 fL (79.4-94.8); Mean Corpuscular Hemoglobin 28.3 pg (25.6-32.2); Mean Corpuscular Hgb Concent. 30.6 g/dL (32.2-35.5); Monocyte (Absolute #) 0.32 x10^3/uL (0.24-0.86); Neutrophil % 87.7 % (34.0-71.1); Platelet Count 325 x10^3/uL (182-369); Red Cell Distribution Width 18.1 % (11.7-14.4); White Blood Count 8.1 x10^3/uL (3.98-10.04)
[2024-08-06 06:07] LABS: ALBUMIN 3.6 g/dL (3.5-5.0); BILIRUBIN,TOTAL 1.6 mg/dL (0.2-1.3); Calcium 8.8 mg/dL (8.4-10.2); Creatinine 1 1.72 mg/dL (0.52-1.04); EST GLOMERULAR FILTRATION RATE 29.7 ML/MIN; Potassium 4.2 mmol/L (3.5-5.1); Total Protein 6.7 g/dL (6.3-8.2)
[2024-08-06 07:39] VITALS: RESP 16; TEMP 97.6
--- NOTE | 2024-08-06 11:24 | PCM.DS ---
Discharge Summary Date of Admission: 08/04/24 09:37 Date of Discharge: 08/06/24 Admitting Physician: HERNANDO ARTEAGA MD Primary Care Provider: CELINA SWANSON Allergies Allergies No Known Drug Allergies Allergy (Verified 08/04/24 09:46) Hospital Summary - Hospital Course Hospital Course: is a 78 year old female with PMHX of CHF, afib (on eliquis), hyperlipidemia, HI, TYpe II DM, HTN, CKD, hypothyroidism, OA, anxiety, and depression who presented to ED 08/04/24 with complaints of an uncontrollable cough. Patient was recently admitted 07/18/24- 07/23/24 with similar complaints. I have reviewed this documentation. At that visit CXR was negative and sputum culture with serratia marcescens. She received treatment with Ceftin at that time. She also developed a hematoma to her right abdomen during that visit for which surgery was consulted and felt this was secondary to her coughing - no surgical intervention. Eliqus was held x 2 weeks and later resumed at a lower dose by her [place] Attorney Dr. Vann. Patient states that her symptoms have never resolved and that nothing has made her cough better. This has caused her to have some nausea, poor appetite, and a poor energy level. She reports an average of about 2 hours a night of sleep. She also reports feeling "itchy" all over. Denies fever, sob, cp, abdominal pain, LONGORIA, dizziness, N/V/D. Upon arrival to ED, vitals signs stable. CXR with non-acute findings. Labs remarkable for hgb at 10.6, DDimer elevated at 2.06, Co2 at 20, Gap 18.4, BUN 44, creat at 1.56, Tbili at 1.40, ASt at 49, [place] 44[place] [address], and TSH 8.450. Respiratory panel is negative. Patient was given Rocephin/Azithromycin, lasix, and adacel vaccine. Pertussis PCR ordered and pending. Dyspnea and cough have improved. CT findings favoring CHF. 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 Patient to discharge on azithromycin and prednisone. Will send on cough syrup as well. Discharge Note New Diagnosis: URI/cough New Medications: azith/prednisone /robitussin AC Follow Up: PCP/cards Results pending: Pertussis PCR Latest Assessment & Plan (1) Cough Current Visit: Yes Status: Acute Assessment & Plan: -CXR with non-acute findings -Robitussin with codeine -ceftriaxone/azith -CT chest w/o-consider VQ scan -Pertussis PCR pending 08/05: -CT chest favoring CHF - continue lasix -Pertussis pending- continue azithromycin -Prednisone Code(s): R05.9 - COUGH, UNSPECIFIED (2) URI (upper respiratory infection) Current Visit: Yes Status: Acute Assessment & Plan: -see cough above Code(s): J06.9 - ACUTE UPPER RESPIRATORY INFECTION, UNSPECIFIED (3) Acute on chronic renal failure Current Visit: Yes Status: Acute Assessment & Plan: -Baseline 0.99 - Hx CHF -monitor renal/lytes daily -avoid nephrotoxic medications 08/05: -CMP reviewed, creat improved at 1.49- continue to monitor Code(s): N17.9 - ACUTE KIDNEY FAILURE, UNSPECIFIED; N18.9 - CHRONIC KIDNEY DISEASE, UNSPECIFIED (4) Hematoma of abdominal wall Current Visit: Yes Status: Acute Assessment & Plan: -Improved since last visit - on reduced dose of Eliquis -Surgery follow up scheduled Code(s): S30.1XXA - CONTUSION OF ABDOMINAL WALL, INITIAL ENCOUNTER (5) CHF (congestive heart failure) Current Visit: Yes Status: Acute Assessment & Plan: -Follows closely with Dr. Vann - next appt this thurs - Echo 10/15/22 IMPRESSION: 1) GLOBAL LEFT VENTRICULAR HYPOKINESIA WITH A LEFT VENTRICULAR EJECTION FRACTION AROUND 35%. 2) SEVERE MITRAL REGURGITATION. 3) MODERATE AORTIC STENOSIS. 4) MILD TRICUSPID REGURGITATION. RIGHT VENTRICULAR SYSTOLIC PRESSURE OF 44 MM OF MERCURY. 5) MODERATE AORTIC REGURGITATION. 6) MILD PULMONIC INSUFFICIENCY. 7) LEFT VENTRICULAR HYPERTROPHY. 8) MODERATE TO SEVERE LEFT ATRIAL DILATATION. 9) MILDLY DILATED RIGHT SIDE CHAMBER. 10) MILD PULMONIC INSUFFICIENCY. 11) LEFT VENTRICLE DIASTOLIC DYSFUNCTION. -BNP 36520 -No edema on exam -Lasix 20mg given in ED -continue home meds -Echo 08/05: -CT chest reviewed favoring CHF - continue lasix IV 40mg daily Code(s): I50.9 - HEART FAILURE, UNSPECIFIED (6) Hypothyroid Current Visit: Yes Status: Acute Assessment & Plan: -TSH level reviwed and elevated at 8.450 - will dose reduce synthroid to 100mcg from 112mcg - she will need follow up as OP with PCP Code(s): E03.9 - HYPOTHYROIDISM, UNSPECIFIED (7) HTN (hypertension) Current Visit: Yes Status: Acute Assessment & Plan: -stable continue home meds Code(s): I10 - ESSENTIAL (PRIMARY) HYPERTENSION (8) Depression Current Visit: Yes Status: Acute Assessment & Plan: -continue prozac Code(s): F32.A - DEPRESSION, UNSPECIFIED (9) Chronic atrial fibrillation Current Visit: Yes Status: Acute Assessment & Plan: -Continue Eliquis/metoprolol Code(s): I48.20 - CHRONIC ATRIAL FIBRILLATION, UNSPECIFIED (10) Elevated brain natriuretic peptide (BNP) level Current Visit: Yes Status: Acute Assessment & Plan: -See CHF Code(s): R79.89 - OTHER SPECIFIED ABNORMAL FINDINGS OF BLOOD CHEMISTRY (11) High anion gap metabolic acidosis Current Visit: Yes Status: Acute Assessment & Plan: -Co2 at 20 - continue to monitor 08/05: -C02 reviewed now WNL at 24 - resolved Code(s): E87.29 - OTHER ACIDOSIS (12) Insomnia Current Visit: Yes Status: Acute Assessment & Plan: -Trazadone at HS Code(s): G47.00 - INSOMNIA, UNSPECIFIED (13) Type II diabetes mellitus Current Visit: No Status: Chronic Qualifiers: Diabetes mellitus rn long term care insulin use: without usp use Assessment & Plan: -SSI- low dose -Hold metformin -accuchecks ACHS -A1c reviewed and at 6.56 I spent 35 minutes [id number] with the patient on the day of discharge performing discharge exam, discussing hospital stay and discharge instructions with patient and caregivers, preparation of discharge records, prescriptions & referral forms and addressing any questions/concerns the patient had as documented above. - Vitals & Intake/Output Vital Signs: Vital Signs Temperature 97.6 F 08/06/24 07:38 Pulse Rate 79 08/06/24 07:38 Respiratory Rate 16 08/06/24 07:38 Blood Pressure 135/63 08/06/24 07:38 O2 Sat by Pulse Oximetry 97 08/06/24 07:38 Intake & Output: Intake & Output 08/03/24 08/04/24 08/05/24 08/06/24 11:59 11:59 11:59 11:59 Intake Total 460 600 Output Total 1250 400 Balance -790 200 Weight 77.4 kg 76.9 kg 75.9 kg - Lab Result Diagrams: 08/06/24 05:18 08/06/24 05:18 Lab Results-Last 24 Hrs: Lab Results-Last 24 Hours 08/05/24 08/05/24 08/05/24 Range/Units 11:43 16:22 20:52 WBC (3.98-10.04) x10^3/uL RBC (3.93-5.22) x10^6/uL Hgb (11.2-15.7) g/dL Hct (34.1-44.9) % MCV (79.4-94.8) fL MCH (25.6-32.2) pg MCHC (32.2-35.5) g/dL RDW (11.7-14.4) % Plt Count (182-369) x10^3/uL MPV (9.4-12.3) fL Gran % (34.0-71.1) % Immature Gran % (Auto) (0.001-0.429) % Nucleat RBC Rel Count (0.00-0.2) % Eos # (Auto) (0.04-0.36) x10^3/uL Immature Gran # (Auto) (0.001-0.031) x10^3u/L Absolute Lymphs (auto) (1.18-3.74) x10^3/uL Absolute Monos (auto) (0.24-0.86) x10^3/uL Absolute Nucleated RBC (0.00-0.012) x10^3u/L Lymphocytes % (19.3-51.7) % Monocytes % (4.7-12.5) % Eosinophils % (0.7-5.8) % Basophils % (0.1-1.2) % Absolute Granulocytes (1.56-6.13) x10^3/uL Basophils # (0.01-0.08) x10^3/uL Sodium (135-145) mmol/L Potassium (3.5-5.1) mmol/L Chloride (98-107) mmol/L Carbon Dioxide (22-30) mmol/L Anion Gap (5-15) MEQ/L BUN (7-17) mg/dL Creatinine (0.52-1.04) mg/dL Estimated GFR ML/MIN Glucose (74-106) mg/dL POC Glucometer 225 H 218 H 205 H (74 to 106) mg/dL Calcium (8.4-10.2) mg/dL Total Bilirubin (0.2-1.3) mg/dL AST (14-36) U/L ALT (0-35) U/L Alkaline Phosphatase (38-126) U/L Serum Total Protein (6.3-8.2) g/dL Albumin (3.5-5.0) g/dL 08/06/24 08/06/24 08/06/24 Range/Units 05:18 05:18 07:28 WBC 8.1 (3.98-10.04) x10^3/uL RBC 3.60 L (3.93-5.22) x10^6/uL Hgb 10.2 L (11.2-15.7) g/dL Hct 33.3 L (34.1-44.9) % MCV 92.5 (79.4-94.8) fL MCH 28.3 (25.6-32.2) pg MCHC 30.6 L (32.2-35.5) g/dL RDW 18.1 H (11.7-14.4) % Plt Count 325 (182-369) x10^3/uL MPV 11.0 (9.4-12.3) fL Gran % 87.7 H (34.0-71.1) % Immature Gran % (Auto) 0.4 (0.001-0.429) % Nucleat RBC Rel Count 0.0 (0.00-0.2) % Eos # (Auto) 0 L (0.04-0.36) x10^3/uL Immature Gran # (Auto) 0.03 (0.001-0.031) x10^3u/L Absolute Lymphs (auto) 0.62 L (1.18-3.74) x10^3/uL Absolute Monos (auto) 0.32 (0.24-0.86) x10^3/uL Absolute Nucleated RBC 0.00 (0.00-0.012) x10^3u/L Lymphocytes % 7.7 L (19.3-51.7) % Monocytes % 4.0 L (4.7-12.5) % Eosinophils % 0.0 L (0.7-5.8) % Basophils % 0.2 (0.1-1.2) % Absolute Granulocytes 7.11 H (1.56-6.13) x10^3/uL Basophils # 0.02 (0.01-0.08) x10^3/uL Sodium 139 (135-145) mmol/L Potassium 4.2 (3.5-5.1) mmol/L Chloride 105 (98-107) mmol/L Carbon Dioxide 19 L (22-30) mmol/L Anion Gap 19.0 H (5-15) MEQ/L BUN 50 H (7-17) mg/dL Creatinine 1.72 H (0.52-1.04) mg/dL Estimated GFR 29.7 ML/MIN Glucose 184 H (74-106) mg/dL POC Glucometer 177 H (74 to 106) mg/dL Calcium 8.8 (8.4-10.2) mg/dL Total Bilirubin 1.60 H (0.2-1.3) mg/dL AST 82 H (14-36) U/L ALT 54 H (0-35) U/L Alkaline Phosphatase 119 (38-126) U/L Serum Total Protein 6.7 (6.3-8.2) g/dL Albumin 3.6 (3.5-5.0) g/dL Micro Results-Entire Visit: Microbiology 08/04/24 09:10 Blood Culture - Preliminary Blood 08/04/24 08:50 Blood Culture - Preliminary Blood Accuchecks Date 08/06/24 Date 08/05/24 Date 08/05/24 Time 07:39 Time 21:00 - Radiology Exams Ordered Rad Exams-Entire Visit: Radiology Procedures Category Date Time Status CHEST WITHOUT CONTRAST [CT] Stat Exams 08/04/24 10:32 Completed ECHO W/2D AND DOPPLER [US] Routine Exams 08/04/24 12:29 Taken - Procedures and Test Procedures and Tests throughout Hospitalization: Therapy Orders & Screens 08/04/24 12:40 Respiratory Therapy Consult ONCE Comment: Reason For Exam: Diagnosis: pneumonia 08/05/24 11:52 Respiratory Therapy Assessment DAILY Comment: Diagnosis: pneumonia Discharge Exam General Appearance: no apparent distress Neurologic Exam: alert, oriented x 3, cooperative Eye Exam: PERRL Ears, Nose, Throat Exam: normal ENT inspection Neck Exam: normal inspection Respiratory Exam: normal breath sounds, lungs clear Cardiovascular Exam: regular rate/rhythm, normal heart sounds Gastrointestinal/Abdomen Exam: soft, normal bowel sounds Pelvic Exam: deferred Rectal Exam: deferred Back Exam: normal inspection Extremity Exam: normal inspection Skin Exam: normal color Final Diagnosis/Problem List - Final Discharge Diagnosis/Problem (1) Cough Current Visit: Yes Status: Acute Code(s): R05.9 - COUGH, UNSPECIFIED (2) URI (upper respiratory infection) Current Visit: Yes Status: Acute Code(s): J06.9 - ACUTE UPPER RESPIRATORY INFECTION, UNSPECIFIED (3) Acute on chronic renal failure Current Visit: Yes Status: Acute Code(s): N17.9 - ACUTE KIDNEY FAILURE, UNSPECIFIED; N18.9 - CHRONIC KIDNEY DISEASE, UNSPECIFIED (4) Hematoma of abdominal wall Current Visit: Yes Status: Chronic Code(s): S30.1XXA - CONTUSION OF ABDOMINAL WALL, INITIAL ENCOUNTER (5) CHF (congestive heart failure) Current Visit: Yes Status: Chronic Code(s): I50.9 - HEART FAILURE, UNSPECIFIED (6) Hypothyroid Current Visit: Yes Status: Chronic Code(s): E03.9 - HYPOTHYROIDISM, UNSPECIFIED (7) HTN (hypertension) Current Visit: Yes Status: Chronic Code(s): I10 - ESSENTIAL (PRIMARY) HYPERTENSION (8) Depression Current Visit: Yes Status: Chronic Code(s): F32.A - DEPRESSION, UNSPECIFIED (9) Chronic atrial fibrillation Current Visit: Yes Status: Chronic Code(s): I48.20 - CHRONIC ATRIAL FIBRILLATION, UNSPECIFIED (10) Elevated brain natriuretic peptide (BNP) level Current Visit: Yes Status: Chronic Code(s): R79.89 - OTHER SPECIFIED ABNORMAL FINDINGS OF BLOOD CHEMISTRY (11) High anion gap metabolic acidosis Current Visit: Yes Status: Acute Code(s): E87.29 - OTHER ACIDOSIS (12) Insomnia Current Visit: Yes Status: Chronic Code(s): G47.00 - INSOMNIA, UNSPECIFIED (13) Type II diabetes mellitus Current Visit: No Status: Chronic - Discharge Discharge Date: 08/06/24 Disposition: Home, Self-Care Condition: Stable Prescriptions: New Azithromycin 500 mg PO DAILY #1 tablet Prednisone 20 mg [Deltasone 20 mg] 20 mg PO BID 5 Days #10 tablet Guaifenesin/Codeine 5 ml [Robitussin AC Syrup Unit Dose Cup] 5 ml PO Q4H PRN PRN 10 Days #300 ml PRN Reason: Cough Continue Trazodone HCl 50 mg [Desyrel 50 mg] 50 mg PO HS Metformin HCl 500 mg [Glucophage 500 MG] 500 mg PO BID Levothyroxine Sodium 112 mcg PO DAILY Fluoxetine HCl 20 mg PO DAILY Oxybutynin Chloride 5 mg [Ditropan 5 MG] 5 mg PO BID Cetirizine HCl [Zyrtec] 10 mg PO HS Digoxin 0.125 mg Tablet [Lanoxin 0.125MG TABLET] 0.0625 mg PO DAILY Dapagliflozin Propanediol [Farxiga] 1 ea PO DAILY Metoprolol Tartrate 25 mg [Lopressor 25MG Tab] 25 mg PO DAILY Allopurinol 100 mg [Zyloprim 100 mg] 50 mg PO DAILY Ezetimibe 10 mg [Zetia 10 MG] 10 mg PO DAILY Vericiguat [Verquvo] 5 mg PO DAILY PANTOPRAZOLE 40 mg Tablet [Protonix 40MG Tablet] 40 mg PO DAILY 30 Days #30 tablet Apixaban [Eliquis 2.5 mg Tablet] 2.5 mg PO BID Furosemide 20 mg [Lasix 20 mg] 20 mg PO DAILY Additional Instructions: [facility] HAS BEEN SET UP FOR YOU. THEY WILL CALL YOU TO ARRANGE A TIME TO COME SEE YOU. THEIR PHONE NUMBER IS [phone] IF YOU NEED ANYTHING BEFORE THEIR FIRST VISIT. Follow up with: EMILY DONOVAN, RESIDENTIAL SALES REPRESENTATIVE [Primary Care Provider] - ALMAZ VANN [CONSULTING PHYSICIAN] - (As scheduled today at 230pm)
[2024-08-06 11:52] VITALS: BP 120/55; PULSE 70; O2SAT 96
== END 2024-08-06 13:03 | disposition home or self-care (01) ==
LOC: ED 06:05 → MED SURG 09:37
PROVIDERS: ADMIT Internal Medicine; ATTEND Internal Medicine
DX: J06.9 Acute upper respiratory infection, unspecified (principal); R05.9 Cough, unspecified; N17.9 Acute kidney failure, unspecified; I13.0 Hypertensive heart and chronic kidney disease with heart failure and stage 1 through stage 4 chronic kidney disease, or unspecified chronic kidney disease; E11.22 Type 2 diabetes mellitus with diabetic chronic kidney disease; N18.9 Chronic kidney disease, unspecified; I50.9 Heart failure, unspecified; S30.811A Abrasion of abdominal wall, initial encounter; E03.9 Hypothyroidism, unspecified; F32.A Depression, unspecified; I48.20 Chronic atrial fibrillation, unspecified; R79.89 Other specified abnormal findings of blood chemistry; E87.29 Other acidosis; G47.00 Insomnia, unspecified; Z79.01 Long term (current) use of anticoagulants; Z79.899 Other long term (current) drug therapy; I25.2 Old myocardial infarction; Z95.0 Presence of cardiac pacemaker
CPT/HCPCS: 0241U; 36000; 36415; 71045; 71250; 80053; 80162; 82947; 83605; 83880; 84145; 84439; 84443; 84484; 85025; 85379; 85610; 86615; 87040; 90471; 93005; 93041; 93268; 93306; 94760; 94762; 96365; 96367; 96374; 99285; G0378; Q3014; 90715; J0456; J0696; J1817; J1940; A9270-GY